=== PATIENT | male | born 1955 | race Caucasian/White ===

== ENCOUNTER 2019-02-05 00:11 | Inpatient (IN) ==
[2019-02-05] MEDS ORDERED: SODIUM CHLORIDE 0.9% 1000ML 1,000 ML IV ONE ×2 (00:34→01:36)
[2019-02-05] MEDS ORDERED: fentaNYL citrate 100 MCG/2 ML VIAL IV STA (00:34)
[2019-02-05 01:26] LABS: Albumin Level 2.4 gm/dl (3.4-5.0); BUN Creatinine Ratio 39.3 (10-20); Calcium 8.6 mg/dl (8.5-10.1); Creatinine Clr Calc Pharmacy 32.4 ml/min; Est GFR (African American) 35.7; Est GFR (Non-African American) 30.8; Magnesium 3.1 mg/dl (1.8-2.4); Potassium 3.9 mmol/L (3.5-5.1)
[2019-02-05 01:34] LABS: Albumin Globulin Ratio 0.5 (0.9-2); Globulin 4.8 gm/dl (2.5-4.0); Total Protein 7.2 gm/dl (6.4-8.2); Troponin I 0.442 ng/ml (0-0.045)
[2019-02-05 01:35] LABS: Hematocrit (blood only) 43.1 % (42-52); Hemoglobin 15.2 g/dL (14.0-18.0); Mean Corpuscular Hgb Conc 35.3 g/dL (32-36); Mean Corpuscular Volume 90.7 fL (80-100); Mean Platelet Volume 10.3 fL (7.4-10.4); Platelet Count 143 K/uL (130-400); RDW Coefficient of Variation 14.1 % (11.5-14.5); Red Blood Count 4.75 M/uL (4.7-6.1); White Blood Count 20.77 K/uL (4.8-10.8)
[2019-02-05 01:36] LABS: Basophils # (auto) 0.06 K/uL (0-0.2); Basophils % (auto) 0.3 %; Eosinophils # (auto) 0.01 K/uL (0-0.5); Immature Granulocytes # (auto) 0.45 K/uL (0.00-0.02); Immature Granulocytes % (auto) 2.2 %; Lymphocytes # (auto) 0.32 K/uL (1.2-3.4); Lymphocytes % (auto) 1.5 %; Monocytes # (auto) 0.64 K/uL (0.11-0.59); Monocytes % (auto) 3.1 %; Neutrophils # (auto) 19.29 K/uL (1.4-6.5); Neutrophils % (auto) 92.9 %; Platelet Estimate Normal (Normal)
[2019-02-05] MEDS ORDERED: MoRPHine SULFATE 4 MG/ML 1 ML CARP\\VIAL IV STA (02:16)
[2019-02-05 02:19] LABS: Appearance Urine Cloudy (Clear); Bacteria Urine Automated 4+ (Negative); Blood Urine 3+ (Negative); Color Urine Dark Yellow; Glucose Urine UA Negative (Negative); Ketones Urine Trace (Negative); Leukocyte Esterase Urine 3+ (Negative); Nitrite Urine Positive (Negative); Protein Urine 1+ (Negative); RBC Urine Automated >30 /hpf (0-4); Specific Gravity Urine 1.017 (1.000-1.030); Urobilinogen Urine Positive (Negative); WBC Urine Automated >30 /hpf (0-5); pH Urine 6.5 (4.5-7.5)
[2019-02-05 02:29] LABS: Bilirubin Urine Negative (Negative); Ictotest Urine Negative (Negative)
[2019-02-05] MEDS ORDERED: cefTRIAXone SODIUM 1,000 MG/50 ML BAG IV STA (02:37)
[2019-02-05] MEDS ORDERED: VANCOMYCIN CONSULT ACTIVE PRN (05:21)
[2019-02-05] MEDS ORDERED: NITROGLYCERIN SL 0.4 MG/TAB TAB SL PRN (05:21)
[2019-02-05] MEDS ORDERED: ONDANSETRON INJ 2 MG/ML 2 ML VIAL IV PRN (05:21)
[2019-02-05] MEDS ORDERED: POLYETHYLENE (MIRALAX) 17 GM PACK PO PRN (05:21)
[2019-02-05] MEDS ORDERED: MoRPHine SULFATE 4 MG/ML 1 ML CARP\\VIAL IV PRN (05:21)
[2019-02-05] MEDS ORDERED: ACETAMINOPHEN 325 MG TAB PO PRN (05:21)
[2019-02-05] MEDS ORDERED: OXYCODONE/ACETAMINOPHEN 5mg/325mg TAB PO PRN (05:21)
[2019-02-05] MEDS ORDERED: VANCOMYCIN HCL 1,000 MG in SODIUM CHLORIDE 0.9% 250 ML IV SCH (05:21)
[2019-02-05] MEDS ORDERED: MoRPHine SULFATE 4 MG/ML 1 ML CARP\\VIAL ONE (05:24)
[2019-02-05] MEDS ORDERED: VANCOMYCIN HCL 1,500 MG in SODIUM CHLORIDE 0.9% 500 ML IV SCH (05:30)
[2019-02-05] MEDS: SODIUM CHLORIDE 0.9% 1000ML 1,000 ML IV SCH ×4 (05:45→21:24)
[2019-02-05] MEDS ORDERED: AZTREONAM CONSULT ACTIVE PRN (05:52)
[2019-02-05] MEDS ORDERED: AZTREONAM 2,000 MG in DEXTROSE 5% 100 ML IV SCH (06:00)
--- NOTE | 2019-02-05 06:29 | History and Physical Report ---
DATE OF ADMISSION: 02/05/2019 CHIEF COMPLAINT: Fall from the ladder and generalized pain. 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 He says he fell a couple of times from the ladder 2 days apart, was feeling a lot of generalized pain and his friend brought him to the hospital. Also complains on and off occasional cough with whitish phlegm and pain in the chest, belly and back and all over.Also he is having burning micturition for more than few days now. He also says he is constipated, but when he moves bowels, he thinks they might be in black color. Denies any blood in the stools, no blood in the urine. Denies fevers but feeling very cold.Denies any headaches, no blurred visions. Has some sore throat. Somewhat hard of hearing and somewhat slow to answer. He says his appetite is okay. No nausea, no vomiting. He says he has some swelling in the legs, no rash seen. He was tachycardic in the ER with some mild hypothermia with leukocytosis and ALEE and elevated lactic acid. Received IV fluids and dose of Rocephin was given. Imaging studies were done, which shows a couple of rib fractures. UA was positive. Troponin was 0.4. We were called for admission. ALLERGIES: TO PENICILLINS. THE PATIENT SAYS HE HAS HAD EPISODE OF SEIZURE AFTER THE PENICILLIN, PAST MEDICAL HISTORY: Not significant. PAST SURGICAL HISTORY: None as per patient. MEDICATIONS: Aleve as needed. SOCIAL HISTORY: No smoking, no alcohol, no drugs. REVIEW OF SYMPTOMS: As per HPI. Rest of review of symptoms is negative. PHYSICAL EXAMINATION: GENERAL: The patient is alert and awake, some significant pain. VITAL SIGNS: Temperature 36.3, pulse 111, respiratory rate 26, blood pressure 130/79, oxygen 98% on room air. HEENT: No pallor, no icterus. Pupils equal, round, reactive to light. NECK: No JVD, no neck masses, no carotid bruits. CARDIOVASCULAR: S1, S2 heard. Tachycardia. No murmurs. RESPIRATORY SYSTEM: Normal AP diameter. No accessory muscle use. No wheezing, no crackles. ABDOMEN: Soft, bowel sounds present, nontender. No distention. CENTRAL NERVOUS SYSTEM: Alert and awake and oriented. Somewhat slow to answer, moves his extremities. Obeys commands. EXTREMITIES: Bilateral lower extremity chronic skin changes seen. Mild edema seen. LABORATORY DATA: WBC 20.7, hemoglobin 15.2, hematocrit 43.1, platelets 143. Sodium 133, potassium 3.9, chloride 97, bicarbonate 24, BUN 87, creatinine 2.2, serum glucose 101, lactate 3.1, calcium 8.6, magnesium 3.1, total bilirubin 4, AST 62, ALT 50, alkaline phosphatase 209, total creatinine kinase 145. Troponin I 0.44. Urinalysis, positive for nitrite and leukocyte esterase. IMAGING STUDIES: Official reading pending. EKG: Sinus tachycardia with rate of 108, right bundle-branch block, no previous EKG available. ASSESSMENT AND PLAN: This is a 63-year-old male who presents with a fall from a ladder 2 times 2 days apart, presents with generalized body pains. 1. Sepsis. The patient meets criteria for sepsis with tachycardia, hypothermia, elevated white count and most likely source of urinary tract infection. HE IS ALLERGIC TO PENICILLINS. Received 2 liters of fluids in the ER. Lactic acid was 3.1. We will follow the repeat lactic acid. Follow the repeat labs. Follow the urine and blood cultures. We will empirically place him on IV Azactam and IV vancomycin. Close monitor on tele floor. 2. The patient is having cough with some whitish phlegm. We will follow the official report of CAT scan of the chest. p.o. doxycycline for now. Close monitor. 3. Acute kidney injury. Creatinine of 2.2, Don't know the baseline. BUN is also elevated. Getting fluids, currently iv ns 200 mL per hour. We will follow the labs. We will also follow the official report of CAT scan of the abdomen and pelvis. 4. Hyponatremia. Sodium 133. Getting fluids. Follow the labs. 5. Elevated bilirubin and alk phosphatase . Bilirubin of 4. We will follow the repeat labs and ct abd/pelvis. Mostly from sepsis. 6. Elevated troponin. Generalized pain. EKG, no acute ST-T changes seen. Most likely demand ischemia from sepsis. We will follow the serial cardiac enzymes and echocardiogram. 7. Rib fractures. We will continue the pain control. We will follow the official report of the imaging studies. 8. generalized pain. Mostly from sepsis. ck levels normal. 9. Deep venous thrombosis prophylaxis, SCDs. 10. Disposition: Closely monitor in the tele floor. Level 1 full code. PT and OT prior to discharge. Social Service to help with discharge planning. ZEENAT
[2019-02-05 07:27] LABS: Hematocrit (blood only) 39.6 % (42-52); Hemoglobin 13.7 g/dL (14.0-18.0); Mean Corpuscular Hemoglobin 31.9 pg (25-34); Mean Corpuscular Hgb Conc 34.6 g/dL (32-36); Mean Corpuscular Volume 92.1 fL (80-100); Platelet Count 101 K/uL (130-400); RDW Coefficient of Variation 14.3 % (11.5-14.5); RDW Standard Deviation 48.3 fL (36.4-46.3); White Blood Count 15.86 K/uL (4.8-10.8)
--- NOTE | 2019-02-05 07:27 | CT Scan Report ---
CT SCAN OF THE CHEST, ABDOMEN, AND PELVIS WITHOUT IV CONTRAST; CT SCAN OF THE THORACIC SPINE WITHOUT IV CONTRAST; CT SCAN OF THE LUMBAR SPINE WITHOUT IV CONTRAST CLINICAL HISTORY: Fall from ladder 2 days ago. COMPARISON STUDY: Chest x-ray dated 05/27/2016. TECHNIQUE: Unenhanced CT scan of the chest, abdomen, and pelvis was performed from the thoracic inlet to the proximal femora. Images are reviewed in the axial, sagittal, and coronal planes. IV contrast was not administered as per the referring clinician. Note that the examination was performed in signi ficantly suboptimal fashion without IV contrast. Additionally, unenhanced CT scan of the thoracic sp ine is performed from the lower cervical spine to the upper lumbar spine and unenhanced CT scan of jimmie mbar spine is performed from the lower thoracic spine to the sacrum. The thoracic and lumbar spinal C T scans are reviewed in the axial, sagittal, and coronal planes. A dose lowering technique was utiliz ed adhering to the principles of ALARA. The examination is degraded by streak artifact from the arms which could not be elevated above the chest or abdomen, as well as by motion artifact. CT DOSE: 2194.99 mGy.cm FINDINGS: CHEST: Thyroid: Imaged portions of the thyroid gland are normal in size and attenuation. Thoracic aorta: There is mild atherosclerotic calcification of the thoracic aorta, which is normal in caliber and demonstrates standard 3-vessel arch anatomy. Heart: The heart is top normal in size and without pericardial effusion. Lungs and pleural spaces: Evaluation of the lung parenchyma is modestly degraded by motion artifact. There is trace right hemothorax. Airspace opacities at the right lung base likely represent atelectas is. No pneumothorax is seen. The trachea and central airways are clear. An 8 mm nodule versus focal a telectasis at the right lung base is seen on image #223. There is a 4 mm pulmonary nodule at the righ t apex seen on image #64. A 6 mm right middle lobe pulmonary nodule is seen on image #210. Mediastinum: There is no mediastinal hematoma or lymphadenopathy. Mary: Not well assessed without IV contrast. Axillae: There is no axillary lymphadenopathy. Bony thorax: The skeletal structures are osteopenic. See below for dedicated assessment of the thorac ic spine. There are acute and minimally distracted fractures of the right posterior 9th and 10th ribs . Both ribs are fractured at 2 sites. There is an age indeterminant fracture of the right anterior 3r d rib. No lytic or blastic lesions are identified. THORACIC SPINE: There is a minimal and age indeterminant superior endplate compression deformity of T 3. Vertebral body height is otherwise maintained throughout the thoracic spine. Alignment is preserve d. Small anterior osteophytes are seen throughout. The transverse and spinous processes are intact. A Schmorl's node is seen in the superior endplate of T12. The disc spaces are preserved. There is no e vidence of large disc herniation or high-grade central canal stenosis by CT. The paraspinous soft tis sues are normal in appearance. ABDOMEN AND PELVIS: Liver: Evaluation of the liver is degraded by streak artifact. The unenhanced liver is normal in size . Question nodularity of the surface contour. There is no intrahepatic or ductal dilatation. Gallbladder: Unremarkable. Spleen: Evaluation of the spleen is degraded by streak artifact. The spleen is enlarged, measuring 14 .3 cm in length. The unenhanced spleen is normal in contour and attenuation. Pancreas: The unenhanced pancreas is grossly unremarkable. Adrenal glands: Unremarkable. Kidneys: The unenhanced kidneys are normal in size and without hydronephrosis. There is a 4 mm nonobs tructing calculus in the lower pole of the right kidney. No left renal calculi are identified. There is no evidence of contour deforming mass lesion. Abdominal vasculature: The abdominal aorta is normal in course and caliber noting moderate atheroscle rotic calcification. Stomach and bowel: There is a tiny hiatal hernia. The duodenum is normal in configuration. Fecal rete ntion is noted in the right colon. No bowel obstruction is seen. The appendix is normal as visualize d. Peritoneum/retroperitoneum: There is no intraperitoneal free air or abdominal ascites. The right psoa s muscle appears expanded and heterogeneous, best seen on image #265. Lymphadenopathy: None. Pelvic viscera: The prostate gland is mildly enlarged and heterogeneous. There is median lobe hypertr ophy. The bladder is markedly distended. The bladder wall is thickened and trabeculated indicating ch ronic outlet obstruction. There is a fat-containing left inguinal hernia. Skeletal structures: The skeletal structures are osteopenic. See below for dedicated assessment of th e lumbar spine. The bony pelvis and proximal femora appear intact. No lytic or blastic lesions are se en. LUMBAR SPINE: There is no evidence of fracture or malalignment involving the lumbar spine. Vertebral body height and alignment are maintained throughout the lumbar spine. Tiny anterior osteophytes are s een throughout. The transverse and spinous processes are intact. There is no evidence of spondylolysi s. There is advanced disc space narrowing at L5-S1. Only mild disc space narrowing is seen at the rem aining lumbar levels. There is no evidence of large disc herniation or high-grade stenosis by CT. Mil d facet arthropathy is noted in the lower lumbar region. The paraspinous soft tissues are within norm al limits. IMPRESSION: 1. Significantly suboptimal examination without IV contrast given the history of trauma. The examinat ion is also degraded by streak and motion artifact 2. There are acute fractures of the right posterior 9th and 10th ribs as detailed above. 3. There is trace right-sided hemothorax. No pneumothorax is identified. 4. Airspace opacities at the right lung base likely represent atelectasis. Clinical correlation will be required. 5. There is no evidence of solid organ injury in the abdomen or pelvis on this unenhanced examination . 6. The right psoas muscle appears heterogeneous and expanded. This is of indeterminate significance, and could represent intramuscular hematoma, a cystic lesion or collection, or possibly a nerve sheath tumor such as neurofibroma or schwannoma. A contrast-enhanced examination may provide further inform ation. 7. Right-sided nephrolithiasis. 8. Question nodularity of the hepatic surface contour. This could represent early change of cirrhosis . 9. Splenomegaly. 10. There is a minimal and age indeterminant superior endplate compression deformity of T3. Correlate for point tenderness. 11. No additional findings are concerning for fracture or malalignment involving the thoracic spine. 12. There is no evidence of fracture or malalignment involving the lumbar spine. 13. Scattered pulmonary nodules measure up to 8 mm. These can be followed as per the Fleischner crite ema. See below. 14. Bladder distention. 15. Additional findings as above. Electronically signed by: Ben You M.D. 02/05/2019 7:24 AM
[2019-02-05 07:45] LABS: Basophils # (auto) 0.05 K/uL (0-0.2); Basophils % (auto) 0.3 %; Immature Granulocytes # (auto) 0.29 K/uL (0.00-0.02); Immature Granulocytes % (auto) 1.8 %; Lymphocytes % (auto) 1.9 %; Monocytes # (auto) 0.57 K/uL (0.11-0.59); Monocytes % (auto) 3.6 %; Neutrophils # (auto) 14.65 K/uL (1.4-6.5); Neutrophils % (auto) 92.4 %
[2019-02-05 07:57] LABS: Albumin Level 1.8 gm/dl (3.4-5.0); Calcium 7.9 mg/dl (8.5-10.1); Creatinine Clr Calc Pharmacy 41.5 ml/min; Est GFR (African American) 50.4; Est GFR (Non-African American) 43.5; Potassium 3.7 mmol/L (3.5-5.1)
--- NOTE | 2019-02-05 07:59 | CT Scan Report ---
CT SCAN OF THE CERVICAL SPINE CLINICAL HISTORY: Fall from ladder 2 days previously. COMPARISON STUDY: No priors. TECHNIQUE: CT scan of the cervical spine is performed from the skull base to the upper thoracic spine . Images are reviewed in the axial, sagittal, and coronal planes. IV contrast was not administered fo r this examination. A dose lowering technique was utilized adhering to the principles of ALARA. FINDINGS: Skeletal structures: The skeletal structures are osteopenic. There is no evidence of fracture or subl uxation involving the cervical spine. Vertebral body height is maintained. There is minimal retrolist hesis at C4-C5. Alignment is otherwise preserved. There is straightening of the cervical lordosis wit h reversal centered at C4. Anterior osteophytes are seen throughout. The odontoid process and lateral masses are intact. The atlantoaxial articulation is preserved noting productive degenerative change. The spinous processes appear intact. A minimal superior endplate compression deformity is noted in t he body of T3. There is moderate multilevel cervical spondylosis. Uncovertebral and facet arthropathy contribute sterile foraminal stenosis at several levels. Intervertebral discs: There is moderate to advanced disc space narrowing seen at C4-C5, C5-C6, and C6 -C7 with associated endplate sclerosis. Moderate disc space narrowing seen at C3-C4. Central canal: Large posterior disc osteophyte complexes at C4-C5, C5-C6, and C6-C7 may contribute to acquired compromise of the central canal. Soft tissues: The prevertebral and paraspinous soft tissues are within normal limits. Calvarium: The visualized calvarium at the skull base appears intact. Brain parenchyma: Partially visualized brain parenchyma the skull base is within normal limits. Mastoids: The mastoid air cells are well pneumatized. Lung apices: There is a 4 mm right apical pulmonary nodule seen on image #547. Apical lung parenchyma is otherwise clear as visualized. IMPRESSION: 1. There is no evidence of fracture or subluxation involving the cervical spine. 2. Osteopenia and spondylotic change as above. Electronically signed by: Ben You M.D. 02/05/2019 7:58 AM
[2019-02-05 08:15] LABS: Albumin Globulin Ratio 0.5 (0.9-2); Bilirubin,Total 3.1 mg/dl (0.2-1); Total Protein 5.8 gm/dl (6.4-8.2)
--- NOTE | 2019-02-05 08:53 | Emergency Department Note ---
History of Present Illness General Chief complaint: Pain (Generalized) Stated complaint: EXTREME PAIN Source: patient Mode of arrival: ambulatory Limitations: patient cooperation History of Present Illness Maximum Pain Intensity: 7 This patient is a 63-year-old male who presents to the emergency department complaining of generalized pain. Patient is a poor historian and is moaning in pain, not answering many questions. Patient states he fell off of a 14 foot ladder 2 days ago. His neighbor states that he walked over to his house today and said that he wanted to go to the hospital. The patient lives in a van on the neighbor's property. He admits he has not been taking very good care of himself over the past few days and has not been very active due to his pain. He denies any medical problems. He states that the pain is all over his body he rates the pain a 10/10. He denies any fevers or recent illness. He states that he did see his primary care provider a few days ago and was prescribed Percocet for this pain. Home Medications Home Medications Medication Instructions Recorded Confirmed Type ascorbic acid (vitamin C) [Vitamin 1 g PO DAILY 02/05/19 02/05/19 History C] multivitamin 1 tab PO DAILY 02/05/19 02/05/19 History naproxen sodium [Aleve] 220 mg PO DIRECTED PRN 02/05/19 02/05/19 History oxycodone-acetaminophen [Percocet] 1 - 2 tab PO DIRECTED PRN 02/05/19 02/05/19 History vitamin B complex 1 tab PO DAILY 02/05/19 02/05/19 History Allergies Allergy/AdvReac Type Severity Reaction Status Date / Time Penicillins Allergy Unknown UNKNOWN Verified 02/05/19 01:02 Past Med/Surg History Medical History No known health problems Social History Preferred Language: Vietnamese Communication Ability: Impaired Reserves Clerk Required: No Beliefs That Will Affect Care: None Current Living Situation: Homeless Current Living Situation Comment: Patient lives in his van Other Information That Helps Us Care for You: No Feels Safe at Home: Yes Safety Concerns: Feels Safe At This Time Smoking Status: Never smoker Hx Alcohol Use: No Hx Substance Use: No Review of Systems A total of 10 systems reviewed and were otherwise negative Physical Exam Vital Signs Vital Signs - 24 hr 02/05/19 00:17 02/05/19 00:32 02/05/19 00:36 Temperature 36.3 C L Temperature Source Oral Sepsis Recent Fever Within 48 Hours No Sepsis Action Taken by Nursing No Action Required Pulse Rate 120 H 110 H Pulse Rate [Apical] 112 H Pulse Rate from SpO2 Sensor 109 H Pulse Rhythm [Apical] Regular Respiratory Rate 16 30 H 20 Respiratory Effort / Characteristics Non-Labored Spontaneous Non-Labored Spontaneous Respiratory Depth Normal Normal Respiratory Pattern Regular Blood Pressure 117/68 146/87 H Blood Pressure [Right Arm] 146/87 H Blood Pressure Mean 84 106 Blood Pressure Mean [Right Arm] 106 Pulse Oximetry 97 99 95 Oxygen Delivery Method Room Air Room Air 02/05/19 01:00 02/05/19 01:30 02/05/19 02:17 Temperature Temperature Source Sepsis Recent Fever Within 48 Hours Sepsis Action Taken by Nursing Pulse Rate 108 H 115 H 111 H Pulse Rate [Apical] Pulse Rate from SpO2 Sensor 107 H 115 H 112 H Pulse Rhythm [Apical] Respiratory Rate 24 25 H 29 H Respiratory Effort / Characteristics Respiratory Depth Respiratory Pattern Blood Pressure 140/91 153/107 H 145/92 H Blood Pressure [Right Arm] Blood Pressure Mean 107 122 109 Blood Pressure Mean [Right Arm] Pulse Oximetry 98 99 96 Oxygen Delivery Method 02/05/19 02:30 02/05/19 03:00 02/05/19 03:30 Temperature Temperature Source Sepsis Recent Fever Within 48 Hours Sepsis Action Taken by Nursing Pulse Rate 111 H 115 H 114 H Pulse Rate [Apical] Pulse Rate from SpO2 Sensor 112 H 114 H Pulse Rhythm [Apical] Respiratory Rate 26 H 29 H 31 H Respiratory Effort / Characteristics Respiratory Depth Respiratory Pattern Blood Pressure 138/79 141/78 H 142/78 H Blood Pressure [Right Arm] Blood Pressure Mean 98 99 99 Blood Pressure Mean [Right Arm] Pulse Oximetry 98 98 Oxygen Delivery Method 02/05/19 03:31 02/05/19 04:00 Temperature Temperature Source Sepsis Recent Fever Within 48 Hours Sepsis Action Taken by Nursing Pulse Rate 112 H 114 H Pulse Rate [Apical] Pulse Rate from SpO2 Sensor 110 H Pulse Rhythm [Apical] Respiratory Rate 24 25 H Respiratory Effort / Characteristics Respiratory Depth Respiratory Pattern Blood Pressure Blood Pressure [Right Arm] Blood Pressure Mean Blood Pressure Mean [Right Arm] Pulse Oximetry 97 Oxygen Delivery Method VITALS: Vitals are noted on the nurse's note and reviewed by myself. GENERAL: This is a 63-year-old male, thin and chronically unwell appearing, moaning in pain. SKIN: Skin changes to bilateral lower extremities consistent with peripheral vascular disease. HEAD: Normocephalic atraumatic. EARS: External auditory canals clear, tympanic membranes pearly mcdonald without erythema or effusion bilaterally. EYES: Pupils equal round and reactive to light and accommodation. Extraocular movements intact. MOUTH: Mucous membranes moist. Tonsils are not enlarged. Pharynx without erythema or exudate. NECK: Supple without nuchal rigidity. No lymphadenopathy. HEART: Regular rate and rhythm without murmurs gallops or rubs. LUNGS: Clear to auscultation bilaterally without wheezes, rales or rhonchi. CHEST: Patient has tenderness to palpation of the right chest wall. ABDOMEN: Positive bowel sounds x 4. Soft, nontender to palpation. MUSCULOSKELETAL: No deformities. Patient has tenderness throughout all extremities. NEURO: Patient was alert and oriented to person place and time. Course Consultations Consultation #1: Dr. Lieva [facility] hospitalist Administered Medications Clonidine HCl (Malwrnbs-Thw-0 0.1mg/24hr) 1 patch TD CQWK REPLACED BY [facility] Stop: 03/08/19 20:59 Last Admin: 02/06/19 22:11 Dose: 1 patch Documented by: [id number] Hydralazine HCl (Hydralazine Hcl) 10 mg IV Q8H PRN PRN Reason: SBP > 160 Stop: 03/08/19 20:45 Last Admin: 02/07/19 03:53 Dose: 10 mg Documented by: [id number] Aztreonam 1,000 mg/ Dextrose 110 mls @ 110 mls/hr IV Q8H REPLACED BY [facility]; Protocol Stop: 02/15/19 13:59 Last Infusion: 02/07/19 06:19 Dose: 0 mls/hr Documented by: [id number] Admin: 02/07/19 05:20 Dose: 110 mls/hr Documented by: [id number] Infusion: 02/06/19 23:21 Dose: 0 mls/hr Documented by: [id number] Admin: 02/06/19 22:12 Dose: 110 mls/hr Documented by: [id number] Infusion: 02/06/19 15:45 Dose: 0 mls/hr Documented by: [id number] Admin: 02/06/19 14:29 Dose: 110 mls/hr Documented by: [id number] Infusion: 02/06/19 07:25 Dose: 0 mls/hr Documented by: [id number] Admin: 02/06/19 05:55 Dose: 110 mls/hr Documented by: [id number] Infusion: 02/05/19 16:52 Dose: 0 mls/hr Documented by: [id number] Admin: 02/05/19 15:43 Dose: 110 mls/hr Documented by: [id number] Infusion: 02/05/19 15:43 Dose: 110 mls/hr Documented by: [id number] Admin: 02/05/19 15:42 Dose: 110 mls/hr Documented by: [id number] Acetaminophen (Ofirmev) 1,000 mg in 100 mls @ 400 mls/hr IV Q8H PRN PRN Reason: Pain or Fever Stop: 03/07/19 09:58 Last Infusion: 02/07/19 00:52 Dose: 0 mls/hr Documented by: [id number] Admin: 02/07/19 00:31 Dose: 400 mls/hr Documented by: [id number] Infusion: 02/05/19 21:35 Dose: 0 mls/hr Documented by: [id number] Admin: 02/05/19 21:16 Dose: 400 mls/hr Documented by: [id number] Infusion: 02/05/19 12:24 Dose: 0 mls/hr Documented by: [id number] Admin: 02/05/19 11:10 Dose: 400 mls/hr Documented by: [id number] Vancomycin HCl 1,000 mg/ (Sodium Chloride) 270 mls @ 125 mls/hr IV Q16H DEBRA; Protocol Stop: 02/16/19 00:00 Last Infusion: 02/06/19 20:10 Dose: 0 mls/hr Documented by: [id number] Admin: 02/06/19 16:31 Dose: 125 mls/hr Documented by: [id number] Dextrose/Sodium Chloride (D5w And Nss) 1,000 mls @ 125 mls/hr IV .Q8H DEBRA Stop: 03/08/19 20:44 Last Admin: 02/07/19 03:55 Dose: 125 mls/hr Documented by: [id number] Infusion: 02/07/19 03:55 Dose: 125 mls/hr Documented by: [id number] Admin: 02/06/19 21:16 Dose: 125 mls/hr Documented by: [id number] Lidocaine (Lidoderm 5%) 1 patch TD QAM EDBRA Stop: 03/07/19 09:44 Last Admin: 02/06/19 07:39 Dose: 1 patch Documented by: [id number] Admin: 02/05/19 10:30 Dose: 1 patch Documented by: [id number] Miscellaneous (Remove Lidoderm Patch) 1 ea N/A DAILY@2100 DEBRA Stop: 03/07/19 20:59 Last Admin: 02/06/19 22:12 Dose: Not Given Documented by: [id number] Admin: 02/05/19 21:25 Dose: 1 ea Documented by: [id number] Miscellaneous (Check Clonidine Patch) 1 ea N/A QS DEBRA Stop: 03/09/19 00:00 Last Admin: 02/07/19 00:22 Dose: 1 ea Documented by: [id number] Discontinued Medications Doxycycline Hyclate (Vibramycin) 100 mg PO BID REPLACED BY [facility] Stop: 02/12/19 08:59 Last Admin: 02/05/19 08:14 Dose: 100 mg Documented by: [id number] Fentanyl Citrate (Fentanyl Citrate) 50 mcg IV NOW STA Stop: 02/05/19 00:35 Last Admin: 02/05/19 00:49 Dose: 50 mcg Documented by: [id number] Hydralazine HCl (Hydralazine Hcl) 10 mg IV NOW STA Stop: 02/06/19 20:47 Last Admin: 02/06/19 21:11 Dose: 10 mg Documented by: [id number] Sodium Chloride (Nss 1000ml) 1,000 mls @ 999 mls/hr IV .Q1H1M ONE Stop: 02/05/19 01:34 Last Infusion: 02/05/19 02:08 Dose: 0 mls/hr Documented by: [id number] Admin: 02/05/19 00:50 Dose: 999 mls/hr Documented by: [id number] Sodium Chloride (Nss 1000ml) 1,000 mls @ 999 mls/hr IV .Q1H1M ONE Stop: 02/05/19 02:36 Last Infusion: 02/05/19 03:39 Dose: 0 mls/hr Documented by: [id number] Admin: 02/05/19 02:21 Dose: 999 mls/hr Documented by: [id number] Ceftriaxone Sodium (Rocephin) 1,000 mg in 50 mls @ 100 mls/hr IV NOW STA Stop: 02/05/19 03:06 Last Infusion: 02/05/19 04:00 Dose: 0 mls/hr Documented by: [id number] Admin: 02/05/19 03:30 Dose: 100 mls/hr Documented by: [id number] Sodium Chloride (Nss 1000ml) 1,000 mls @ 200 mls/hr IV .Q5H REPLACED BY [facility] Stop: 03/07/19 05:20 Last Infusion: 02/06/19 10:30 Dose: 0 mls/hr Documented by: [id number] Admin: 02/06/19 09:29 Dose: 200 mls/hr Documented by: [id number] Infusion: 02/06/19 09:29 Dose: 200 mls/hr Documented by: [id number] Admin: 02/06/19 04:30 Dose: 200 mls/hr Documented by: [id number] Infusion: 02/06/19 02:24 Dose: 200 mls/hr Documented by: [id number] Admin: 02/05/19 21:24 Dose: 200 mls/hr Documented by: [id number] Infusion: 02/05/19 20:49 Dose: 200 mls/hr Documented by: [id number] Admin: 02/05/19 15:49 Dose: 200 mls/hr Documented by: [id number] Infusion: 02/05/19 15:42 Dose: 0 mls/hr Documented by: [id number] Admin: 02/05/19 10:33 Dose: 200 mls/hr Documented by: [id number] Infusion: 02/05/19 10:33 Dose: 200 mls/hr Documented by: [id number] Admin: 02/05/19 05:45 Dose: 200 mls/hr Documented by: [id number] Aztreonam 2,000 mg/ Dextrose 110 mls @ 100 mls/hr IV TODAY@0600 REPLACED BY [facility]; Protocol Stop: 02/05/19 07:05 Last Infusion: 02/05/19 07:04 Dose: 0 mls/hr Documented by: [id number] Admin: 02/05/19 05:52 Dose: 100 mls/hr Documented by: [id number] Vancomycin HCl 1,500 mg/ (Sodium Chloride) 530 mls @ 200 mls/hr IV TODAY@0530 REPLACED BY [facility] Stop: 02/05/19 08:08 Last Infusion: 02/05/19 08:29 Dose: 0 mls/hr Documented by: [id number] Admin: 02/05/19 05:46 Dose: 200 mls/hr Documented by: [id number] Vancomycin HCl 1,000 mg/ (Sodium Chloride) 270 mls @ 125 mls/hr IV Q18H REPLACED BY [facility]; Protocol Stop: 02/16/19 00:00 Last Infusion: 02/06/19 03:06 Dose: 0 mls/hr Documented by: [id number] Admin: 02/06/19 00:52 Dose: 125 mls/hr Documented by: [id number] Lactated Ringer's (Lr) 1,000 mls @ 125 mls/hr IV .Q8H REPLACED BY [facility] Stop: 03/08/19 10:29 Last Infusion: 02/06/19 22:55 Dose: 0 mls/hr Documented by: [id number] Infusion: 02/06/19 22:47 Dose: 0 mls/hr Documented by: [id number] Admin: 02/06/19 18:00 Dose: 125 mls/hr Documented by: [id number] Infusion: 02/06/19 18:00 Dose: 125 mls/hr Documented by: [id number] Admin: 02/06/19 10:38 Dose: 125 mls/hr Documented by: [id number] Lorazepam (Ativan) 0.5 mg in 1 mls @ 1 mls/min IV NOW STA Stop: 02/06/19 16:31 Last Admin: 02/06/19 17:12 Dose: 1 mls/min Documented by: [id number] Folic Acid 1 mg/ Syringe 10 mls @ 5 mls/min IV NOW STA Stop: 02/06/19 20:43 Last Admin: 02/06/19 21:15 Dose: 5 mls/min Documented by: [id number] Thiamine HCl 100 mg/ Syringe 10 mls @ 2 mls/min IV NOW STA Stop: 02/06/19 20:46 Last Admin: 02/06/19 21:15 Dose: 2 mls/min Documented by: [id number] Lorazepam (Ativan) 1 mg in 2 mls @ 2 mls/min IV NOW STA Stop: 02/06/19 20:46 Last Admin: 02/06/19 21:11 Dose: 2 mls/min Documented by: [id number] Morphine Sulfate (Morphine Sulfate) 4 mg IV NOW STA Stop: 02/05/19 02:17 Last Admin: 02/05/19 02:21 Dose: 4 mg Documented by: [id number] Morphine Sulfate (Morphine Sulfate) 3 mg IV Q3H PRN PRN Reason: Pain Stop: 02/19/19 05:20 Last Admin: 02/05/19 05:46 Dose: 3 mg Documented by: [id number] Morphine Sulfate (Morphine Sulfate) Confirm Administered Dose 4 mg .ROUTE .STK- MED ONE Stop: 02/05/19 05:25 Last Admin: 02/05/19 05:49 Dose: Not Given Documented by: [id number] Multivitamins (Multivitamin Tab) 1 tab PO DAILY DEBRA Stop: 03/07/19 08:59 Last Admin: 02/05/19 08:15 Dose: 1 tab Documented by: [id number] Vitamin B Complex (Vitamin B Complex) 1 tab PO DAILY DEBRA Stop: 03/07/19 08:59 Last Admin: 02/05/19 08:14 Dose: 1 tab Documented by: [id number] Medical Decision Making Differential Diagnosis Differential diagnosis includes fracture, intracranial bleed, intrathoracic injury, intra-abdominal injury, sepsis, dehydration, among others. Home Medications Current Medication List: was personally reviewed by me Laboratory Data Attestation: I reviewed the patient's lab results. Result diagrams: 02/06/19 05:50 02/07/19 05:33 Lab Results 02/05/19 02/05/19 02/05/19 Range/Units 00:52 00:52 00:52 WBC 20.77 H (4.8-10.8) K/uL RBC 4.75 (4.7-6.1) M/uL Hgb 15.2 (14.0-18.0) g/dL Hct 43.1 (42-52) % MCV 90.7 (80-100) fL MCH 32.0 (25-34) pg MCHC 35.3 (32-36) g/dL RDW Std Deviation 47.0 H (36.4-46.3) fL RDW Coeff of Amari 14.1 (11.5-14.5) % Plt Count 143 (130-400) K/uL MPV 10.3 (7.4-10.4) fL Immature Gran % (Auto) 2.2 % Neut % (Auto) 92.9 % Lymph % (Auto) 1.5 % Garza % (Auto) 3.1 % Eos % (Auto) 0.0 % Baso % (Auto) 0.3 % Immature Gran # (Auto) 0.45 H (0.00-0.02) K/uL Neut # (Auto) 19.29 H (1.4-6.5) K/uL Lymph # (Auto) 0.32 L (1.2-3.4) K/uL Garza # (Auto) 0.64 H (0.11-0.59) K/uL Eos # (Auto) 0.01 (0-0.5) K/uL Baso # (Auto) 0.06 (0-0.2) K/uL Platelet Estimate Normal (Normal) Sodium 133 L (136-145) mmol/L Potassium 3.9 (3.5-5.1) mmol/L Chloride 97 L (98-107) mmol/L Carbon Dioxide 24 (21-32) mmol/L Anion Gap 12.0 H (3-11) BUN 87 H (7-18) mg/dl Creatinine 2.21 H (0.6-1.4) mg/dl Est Cr Clr Drug Dosing 32.4 ml/min Est GFR ( Amer) 35.7 Est GFR (Non-Af Amer) 30.8 BUN/Creatinine Ratio 39.3 H (10-20) Glucose 101 H (70-99) mg/dl Lactate 3.1 H* (0.4-2.0) mmol/L Calcium 8.6 (8.5-10.1) mg/dl Magnesium 3.1 H (1.8-2.4) mg/dl Total Bilirubin 4.0 H (0.2-1) mg/dl AST 62 H (15-37) U/L ALT 50 (12-78) U/L Alkaline Phosphatase 209 H (45-117) U/L Total Creatine Kinase 145 (39-308) U/L Troponin I 0.442 H* (0-0.045) ng/ml Total Protein 7.2 (6.4-8.2) gm/dl Albumin 2.4 L (3.4-5.0) gm/dl Globulin 4.8 H (2.5-4.0) gm/dl Albumin/Globulin Ratio 0.5 L (0.9-2) Urine Color Urine Appearance (Clear) Urine pH (4.5-7.5) Ur Specific [place] (1.000-1.030) Urine Protein (Negative) Urine Glucose (UA) (Negative) Urine Ketones (Negative) Urine Blood (Negative) Urine Nitrite (Negative) Urine Bilirubin (Negative) Urine Urobilinogen (Negative) Ur Leukocyte Esterase (Negative) Urine WBC (Auto) (0-5) /hpf Urine RBC (Auto) (0-4) /hpf U Hyaline Cast (Auto) (0-5) /lpf U Epithel Cells (Auto) (0-5) /lpf Urine Bacteria (Auto) (Negative) Urine Yeast Bld Cult Staph aureus PCR (Negative) Blood Culture MRSA PCR (Negative) 02/05/19 02/05/19 Range/Units 02:07 02:50 WBC (4.8-10.8) K/uL RBC (4.7-6.1) M/uL Hgb (14.0-18.0) g/dL Hct (42-52) % MCV (80-100) fL MCH (25-34) pg MCHC (32-36) g/dL RDW Std Deviation (36.4-46.3) fL RDW Coeff of Amari (11.5-14.5) % Plt Count (130-400) K/uL MPV (7.4-10.4) fL Immature Gran % (Auto) % Neut % (Auto) % Lymph % (Auto) % Garza % (Auto) % Eos % (Auto) % Baso % (Auto) % Immature Gran # (Auto) (0.00-0.02) K/uL Neut # (Auto) (1.4-6.5) K/uL Lymph # (Auto) (1.2-3.4) K/uL Garza # (Auto) (0.11-0.59) K/uL Eos # (Auto) (0-0.5) K/uL Baso # (Auto) (0-0.2) K/uL Platelet Estimate (Normal) Sodium (136-145) mmol/L Potassium (3.5-5.1) mmol/L Chloride (98-107) mmol/L Carbon Dioxide (21-32) mmol/L Anion Gap (3-11) BUN (7-18) mg/dl Creatinine (0.6-1.4) mg/dl Est Cr Clr Drug Dosing ml/min Est GFR ( Amer) Est GFR (Non-Af Amer) BUN/Creatinine Ratio (10-20) Glucose (70-99) mg/dl Lactate (0.4-2.0) mmol/L Calcium (8.5-10.1) mg/dl Magnesium (1.8-2.4) mg/dl Total Bilirubin (0.2-1) mg/dl AST (15-37) U/L ALT (12-78) U/L Alkaline Phosphatase (45-117) U/L Total Creatine Kinase (39-308) U/L Troponin I (0-0.045) ng/ml Total Protein (6.4-8.2) gm/dl Albumin (3.4-5.0) gm/dl Globulin (2.5-4.0) gm/dl Albumin/Globulin Ratio (0.9-2) Urine Color Dark Yellow Urine Appearance Cloudy A (Clear) Urine pH 6.5 (4.5-7.5) Ur Specific [place] 1.017 (1.000-1.030) Urine Protein 1+ H (Negative) Urine Glucose (UA) Negative (Negative) Urine Ketones Trace H (Negative) Urine Blood 3+ H (Negative) Urine Nitrite Positive A (Negative) Urine Bilirubin Negative (Negative) Urine Urobilinogen Positive H (Negative) Ur Leukocyte Esterase 3+ H (Negative) Urine WBC (Auto) >30 H (0-5) /hpf Urine RBC (Auto) >30 H (0-4) /hpf U Hyaline Cast (Auto) 1-5 (0-5) /lpf U Epithel Cells (Auto) 10-20 H (0-5) /lpf Urine Bacteria (Auto) 4+ H (Negative) Urine Yeast Not Reportable Bld Cult Staph aureus PCR Positive A (Negative) Blood Culture MRSA PCR Negative (Negative) Imaging Data Attestation: I personally reviewed and interpreted this imaging study as follows: Radiologist's Impression: CT HEAD: No acute fracture or intracranial hemorrhage. CT C SPINE: No acute fracture. Moderate to severe cervical spondylosis. Kyphosis. CT CHEST Without Contrast: Small right pleural effusion. Patchy airspace opacity in the bilateral lower lobes probably represents dependent atelectasis. No pneumothorax. Nondisplaced fractures of the right ninth and 10th ribs. No mediastinal hematoma. CT T SPINE: No acute fracture or subluxation of the thoracic spine. Old appearing mild compression deformity of T3 with less than 25% loss of height. CT ABDOMEN & PELVIS Without Contrast: No free air or free fluid. No bowel wall thickening. No hematoma. No acute fracture. The bladder is distended with mild wall thickening. Findings could be related to cystitis or neurogenic bladder. Recommend correlation with urinary output. Small fat-containing left inguinal hernia. CT L SPINE: No acute fracture or subluxation of the lumbar spine. Severe degenerative disc disease at L5-S1. Moderate facet arthropathy from bilateral L3-S1. Radiologist: Dea Nuñez MD ECG Data Attestation: I personally reviewed and interpreted this ECG as follows: Indication: weakness Rate (beats per minute): 119 Rhythm: sinus tachycardia Findings: + T-wave inversion (Anterolateral) Change: no significant change Blood Pressure Blood Pressure Findings: Elevated blood pressure Blood Pressure Disposition: further management by hospitalist Head Trauma GCS Score: 15 MDM Narrative The patient is a 63-year-old male who presents today complaining of generalized pain. On exam, patient is complaining of pain all over his body. Patient apparently fell 14 feet off of a ladder [address] scans were performed due to the history of trauma. These showed right-sided rib fractures but no other significant trauma. Patient was found to have an elevated white blood cell count of 20,000. He has an elevated creatinine at 2.2, BUN of 87. He is hyponatremic. His lactate is elevated at 3.1, possibly due to dehydration or sepsis. His troponin is elevated at 0.442. Urine appears to be grossly infected, with 4+ bacteria, nitrites, leukocyte esterase and white blood cells. Blood cultures were drawn. Patient was hydrated with IV fluids in the emergency department and was given Rocephin initially. Patient was admitted to the [facility] service for further evaluation and care. Impression & Plan Sepsis secondary to UTI, Elevated troponin, Closed rib fracture, Acute kidney injury Critical Care Time Critical Care Time: Yes Total Critical Care Time: 45 I have personally spent greater than 45 minutes of critical care time in the direct management of this patient. This includes bedside care, interpretation of diagnostic studies, and testing, discussion with consultants, patient, and family members, and other required patient management activities. This 45 minutes is in excess of all separately billable procedures. Discharge Plan Visit Data *Final* Discharge Date/Time: 02/05/19 04:55 Chief Complaint: Pain (Generalized) Stated Complaint: EXTREME PAIN ED Provider: Yahir Hernandez ED Midlevel Provider: Katherine Coats Discharge Problem: Sepsis secondary to UTI, Elevated troponin, Closed rib fracture, Acute kidney injury Patient Disposition: Admitted As Inpatient Discharge Instructions Interventions: ED Discharge Assessment Last Done: 02/05/19 04:55 Discharge Problem: Closed rib fracture Qualifiers: Encounter type: initial encounter Rib fracture type: multiple ribs Laterality: right Qualified Code(s): S22.41XA - Multiple fractures of ribs, right side, initial encounter for closed fracture
[2019-02-05] MEDS ORDERED: MULTIVITAMIN TAB PO SCH (09:00)
[2019-02-05] MEDS ORDERED: DOXYCYCLINE HYCLATE 100 MG CAP PO SCH (09:00)
[2019-02-05] MEDS ORDERED: VITAMIN B COMPLEX TAB PO SCH (09:00)
[2019-02-05 09:46] LABS: HCO3 ABG 22 mmol/L (19-24); Oxygen Saturation ABG 95.9 % (90-95); PCO2 ABG 32 mmHg (35-46); PO2 ABG 76 mm/Hg (80-95); pH ABG 7.46 (7.35-7.45)
[2019-02-05 09:52] LABS: Allen Test Pos (Pos)
--- NOTE | 2019-02-05 10:04 | CT Scan Report ---
CT SCAN OF THE BRAIN WITHOUT IV CONTRAST CLINICAL HISTORY: Fall from ladder 2 days previously. COMPARISON STUDY: No priors. TECHNIQUE: Unenhanced axial CT scan of the brain is performed from the vertex to the skull base. A d ose lowering technique was utilized adhering to the principles of ALARA. FINDINGS: Brain parenchyma: The brain parenchyma is normal in appearance. There is no hemorrhage, mass effect, or evidence of acute territorial ischemia by CT criteria. George-white matter differentiation is preser samson. No extra-axial fluid collection is seen. Ventricles, sulci, cisterns: Normal in configuration. Intracranial vasculature: The visualized intracranial vasculature at the skull base is normal in appe arance. Calvarium: There is no depressed calvarial fracture. Sinuses and mastoids: The visualized paranasal sinuses are clear. The mastoid air cells are well pneu matized. Orbits: The bony orbits are grossly intact. IMPRESSION: There is no hemorrhage, mass effect, or evidence of acute territorial ischemia by CT jorge dietrich. Electronically signed by: Ben You M.D. 02/05/2019 10:03 AM
--- NOTE | 2019-02-05 10:26 | XRay Report ---
LEFT SHOULDER 3 VIEWS CLINICAL HISTORY: Fall with shoulder pain. FINDINGS: 3 views of the left shoulder are obtained. No prior studies are available for comparison at the time of dictation. The skeletal structures are osteopenic. There is no radiographic evidence of fracture or dislocation. Mild productive degenerative change is noted at the acromioclavicular joint. The glenohumeral articulation is preserved. The overlying soft tissues are normal in appearance. The imaged left upper lobe lung parenchyma appears clear. IMPRESSION: No acute bony abnormality is identified. Electronically signed by: Ben You M.D. 02/05/2019 10:25 AM
--- NOTE | 2019-02-05 10:28 | XRay Report ---
RIGHT SHOULDER 3 VIEWS CLINICAL HISTORY: Fall with shoulder pain. FINDINGS: 3 views of the right shoulder are obtained. No prior studies are available for comparison a t the time of dictation. The skeletal structures are osteopenic. There is no radiographic evidence of fracture or dislocation. Mild productive degenerative change is noted at the acromioclavicular joint . The glenohumeral articulation is preserved. The overlying soft tissues are normal in appearance. Ri ght lower posterior rib fractures are noted. There is a small right pleural effusion. A soft tissue c alcification is noted in the right axilla. IMPRESSION: No fracture or dislocation is seen involving the right shoulder. Electronically signed by: Ben You M.D. 02/05/2019 10:27 AM
[2019-02-05] MEDS: LIDOCAINE 5% 1 PATCH TD SCH (10:30)
[2019-02-05 11:02] LABS: Amphetamines+Metham, Urine Pos (Neg); Barbiturates, Urine Neg (Neg); Benzodiazepine, Urine Neg (Neg); Cocaine, Urine Neg (Neg); MDMA (Ecstacy), Urine Neg (Neg); Methadone, Urine Neg (Neg); Opiate, Urine Pos (Neg); Phencyclidine, Urine Neg (Neg)
[2019-02-05] MEDS: ACETAMINOPHEN 1,000 MG/100 ML VIAL IV PRN ×2 (11:10→21:16)
[2019-02-05] MEDS ORDERED: fentaNYL citrate 100 MCG/2 ML CARP IV ONE (11:17)
[2019-02-05] MEDS ORDERED: VECURONIUM BROMIDE 10 MG VIAL IV ONE (11:17)
[2019-02-05] MEDS ORDERED: ETOMIDATE 2 MG/ML 20 ML VIAL IV ONE (11:17)
[2019-02-05 12:02] LABS: BUN Creatinine Ratio 47.2 (10-20); Calcium 7.3 mg/dl (8.5-10.1); Creatinine Clr Calc Pharmacy 44.5 ml/min; Est GFR (African American) 54.8; Est GFR (Non-African American) 47.3; Potassium 3.9 mmol/L (3.5-5.1); Troponin I 1.39 ng/ml (0-0.045)
--- NOTE | 2019-02-05 13:10 | History and Physical Report ---
DATE OF ADMISSION: 02/05/2019 CONSULTATION REQUESTED BY: Dr. Leiva. REASON FOR CONSULTATION: Elevated troponin. HISTORY OF PRESENT ILLNESS: Mr. Calvin is a 63-year-old gentleman who is not known to our practice or this facility. He was brought in by a concerned citizen after the patient showed up at their door with him complaining of pain. He was brought into the Emergency Department. Currently, the patient is sedated and the majority of history is obtained through review of medical records. Apparently, the patient had a fall off a ladder a few days ago and has been complaining of chest pain, back and belly pain ever since. He has also been having burning micturition. Upon presentation, he was found to have a significant urinary tract infection, acute kidney injury with elevated lactic acid and an elevated troponin level. Cardiology was consulted. Currently, he is receiving antibiotics, IV fluids and pain medication. He voices continued complaints of chest pain and hurting all over currently, the pain is reproducible to palpation. PAST SURGICAL HISTORY: Denies. PAST MEDICAL ILLNESSES: The patient denies. FAMILY HISTORY: Noncontributory. SOCIAL HISTORY: Denies any alcohol, tobacco or recreational drug use. Apparently, the patient lives in a van currently. He is a marine . REVIEW OF SYSTEMS: Unobtainable given the patient's current clinical state. ALLERGIES: No known drug allergies. MEDICATIONS AN OUTPATIENT: Denies. PHYSICAL EXAMINATION: VITALS: Temperature 36.8, pulse 112, respiratory rate 12, blood pressure 144/80. GENERAL: Awake, arousable to verbal stimuli. Moderate acute distress. HEENT: Normocephalic, atraumatic. Pupils equal, round, reactive to light and accommodation. Extraocular muscles intact. Anicteric sclerae. Moist mucous membranes. NECK: No JVD, no bruit. CARDIOVASCULAR: Regular, but fast unable to appreciate murmurs, rubs or gallops. PULMONARY: Clear to auscultation bilaterally. No rales, rhonchi, or wheezing. ABDOMEN: Bowel sounds x4. No rebound or guarding. Diffusely tender. EXTREMITIES: No clubbing, cyanosis or edema. +2 pedal pulses bilaterally. SKIN: Warm and dry. TEST RESULTS: A 12-lead EKG performed in the Emergency Department, independently reviewed at this time shows sinus tachycardia, 108 beats per minute, right bundle branch block pattern, otherwise normal study. A 2D echocardiogram was read as small under filled LV chamber size with mild concentric LVH, hyperdynamic LV systolic function, EF greater than 70%, no segmental left ventricle wall motion abnormalities are noted. No significant valvular pathology. LABORATORY STUDIES OF SIGNIFICANCE: White count of 21. Sodium 135, potassium 3.5, BUN 78, creatinine 1.7. Lactate of 2.2. Initial troponin of 0.4. Repeat of 1.3. IMPRESSION: 1. Multiple rib fractures after a reported fall. 2. Acute urinary tract infection. 3. Presumed acute renal failure. 4. Significant volume depletion. 5. Normal left ventricular systolic function without wall motion abnormalities. RECOMMENDATIONS: It was my pleasure to see Mr. Calvin in consultation today. Given the current clinical context, I believe the troponin is easily explained by peripheral muscle breakdown after at least 1 traumatic event resulting in rib fractures. So at this point, no further cardiac testing or intervention is necessary and I will defer further medical treatment to the primary team.
--- NOTE | 2019-02-05 13:15 | Pharmacy Report ---
Pharmacy Abx Initial Consult - Date of Service February 05, 2019 - Pharmacy Dosing Scope Date of Consult: 02/05/19 Consultation requested by: Dr. Leiva Pharmacy is consulted to initiate vancomycin and aztreonam IV dosing therapy, order appropriate labs and adjust drug dose/frequency. - Subjective The patient is a 63 year old M admitted on 02/05/19 04:12. - Objective Height: 5 ft 7 in Weight: 63.6 kg Vital Signs (Past 12hrs): Vital Signs Temp Pulse Pulse Resp BP BP Pulse Ox 02/05/19 12:00 37.3 C 117 H 30 H 117/54 L 92 02/05/19 07:53 36.8 C 112 H 18 144/80 H 95 02/05/19 05:26 36.6 C 109 H 20 142/76 H 97 02/05/19 04:55 112 H 22 128/70 97 02/05/19 04:30 114 H 23 02/05/19 04:00 114 H 25 H 02/05/19 03:31 112 H 24 97 02/05/19 03:30 114 H 31 H 142/78 H 98 02/05/19 03:00 115 H 29 H 141/78 H 02/05/19 02:30 111 H 26 H 138/79 98 02/05/19 02:17 111 H 29 H 145/92 H 96 02/05/19 01:30 115 H 25 H 153/107 H 99 02/05/19 01:00 108 H 24 140/91 98 Lab Results (24hrs): Laboratory Tests (24 Hours) 02/05/19 02/05/19 02/05/19 11:20 07:02 07:02 WBC Neut # (Auto) Creatinine 1.55 H 1.66 H D Est Cr Clr Drug Dosing 44.5 41.5 Total Creatine Kinase 140 02/05/19 02/05/19 02/05/19 07:02 00:52 00:52 WBC 15.86 H 20.77 H Neut # (Auto) 14.65 H 19.29 H Creatinine 2.21 H Est Cr Clr Drug Dosing 32.4 Total Creatine Kinase 145 Micro Results: 02/05/19 02:50 Aerobic Blood Culture - Pending Blood Anaerobic Blood Culture - Pending 02/05/19 03:01 Aerobic Blood Culture - Pending Blood Anaerobic Blood Culture - Pending 02/05/19 02:07 Urine Culture - Pending Urine,Clean Catch - Assessment & Plan Assessment 63 year old M presents to the ED with generalized pain following a fall from a ladder. Patient was tachycardic, tachypenic, with a WBC of 20.77. Patient also complains of burning with urination and on/off cough with whitish phlegm. Blood cultures x 2 (02/05): pending Urine culture (02/05): pending Plan Empiric vancomycin and aztreonam for treatment of sepsis/complicated UTI Vancomycin IV * Estimated PK Parameters: Vd 0.7 L/kg, Vitaliy 0.041 hr-1, t1/2 17 hr (SCr changes today 00,07, and 1100) : 2.21 -> 1.66 -> 1.55 respectively) * Loading dose: 1500 mg (24 mg/kg) * Maintenance dose: 1000 mg IV (15 mg/kg) every 18 hours * Goal trough for UTI is 10-15, but will target >15 due to systemic symptoms of infection * Will follow AM labs to assess appropriateness of current dose and will obtain a trough once dose is at steady state Aztreonam IV * 1 g IV q8h appropriate for this patient based on indication and renal function * Penicillin allergy noted (seizures): patient did receive one dose of ceftr iaxone in the ED, but there are reports of seizures with ceftriaxone * Aztreonam okay for now pending culture results Pharmacy will continue to follow and will adjust dose/frequency as necessary. Thank you.
[2019-02-05] MEDS: AZTREONAM 1,000 MG in DEXTROSE 5% 100 ML IV SCH ×2 (15:42→15:43)
--- NOTE | 2019-02-05 16:00 | Ultrasound Report ---
ULTRASOUND RIGHT UPPER QUADRANT ABDOMEN CLINICAL HISTORY: Elevated hepatic transaminases. COMPARISON STUDY: Abdominal CT dated 02/05/2019. TECHNIQUE: Real-time, grayscale, and color flow sonography of the right upper quadrant of the abdomen was performed. Images are reviewed in the transverse and longitudinal planes. FINDINGS: Liver: The liver is normal in size and heterogeneous in echotexture. There is nodularity of the hepat ic surface contour indicating early change of cirrhosis. There is no intrahepatic biliary ductal dila tation. The main portal vein is patent. Gallbladder: The gallbladder is filled with sludge. No shadowing gallstones are identified, and the g allbladder wall is normal in thickness. There is trace pericholecystic fluid. A sonographic Stuart's sign could not be assessed. The common bile duct measures up to 0.5 cm in diameter. Pancreas: Visualized portions of the pancreatic head and body are normal in appearance. Right kidney: Survey images of the right kidney demonstrate normal size and echotexture. Mild pelviec tasis is noted without hydronephrosis. Ascites: None. IMPRESSION: 1. The liver is heterogeneous in echotexture and there is nodularity of the hepatic surface contour i ndicating early changes of cirrhosis. 2. There is biliary sludge. 3. Trace pericholecystic fluid is nonspecific. Findings are equivocal for acute cholecystitis which i s not excluded. If there is clinical concern for cholecystitis a nuclear hepatobiliary scan could be considered. 4. There is no intra or extrahepatic biliary ductal dilatation. Electronically signed by: Ben You M.D. 02/05/2019 3:59 PM
--- NOTE | 2019-02-05 17:21 | XRay Report ---
SINGLE VIEW CHEST CLINICAL HISTORY: Dyspnea. Rib fractures. FINDINGS: An AP, portable, upright chest radiograph is compared to chest CT performed the same day 02/05/2019. The examination is degraded by portable technique and patient rotation. The cardiomediastinal silhouette is unremarkable noting atherosclerotic calcification of the thoracic aorta. There are tra ce pleural effusions with bibasilar atelectasis. No pneumothorax is seen. Right posterior lower rib f ractures are again noted. These were better characterized on today's chest CT. IMPRESSION: 1. Small pleural effusions with bibasilar atelectasis. 2. Right posterior lower rib fractures. Electronically signed by: Ben You M.D. 02/05/2019 5:20 PM
[2019-02-06] MEDS ORDERED: VANCOMYCIN HCL 1,000 MG in SODIUM CHLORIDE 0.9% 250 ML IV SCH
[2019-02-06] MEDS: SODIUM CHLORIDE 0.9% 1000ML 1,000 ML IV SCH ×2 (04:30→09:29)
[2019-02-06] MEDS: AZTREONAM 1,000 MG in DEXTROSE 5% 100 ML IV SCH ×3 (05:55→22:12)
[2019-02-06 06:07] LABS: Hematocrit (blood only) 34.3 % (42-52); Hemoglobin 11.6 g/dL (14.0-18.0); Mean Corpuscular Hemoglobin 31.4 pg (25-34); Mean Corpuscular Hgb Conc 33.8 g/dL (32-36); Mean Corpuscular Volume 92.7 fL (80-100); RDW Coefficient of Variation 14.6 % (11.5-14.5); White Blood Count 11.43 K/uL (4.8-10.8)
[2019-02-06 06:14] LABS: Estimated Average Glucose 111 mg/dl; Hemoglobin A1C 5.5 % (4.5-5.6)
[2019-02-06 06:26] LABS: Basophils # (auto) 0.01 K/uL (0-0.2); Basophils % (auto) 0.1 %; Dohle Bodies 1+; Echinocytes 1+; Eosinophils # (auto) 0.02 K/uL (0-0.5); Eosinophils % (auto) 0.2 %; Immature Granulocytes # (auto) 0.22 K/uL (0.00-0.02); Immature Granulocytes % (auto) 1.9 %; Lymphocytes # (auto) 0.37 K/uL (1.2-3.4); Lymphocytes % (auto) 3.2 %; Mean Platelet Volume 10.1 fL (7.4-10.4); Monocytes # (auto) 0.34 K/uL (0.11-0.59); Neutrophils # (auto) 10.47 K/uL (1.4-6.5); Neutrophils % (auto) 91.6 %; Platelet Count 72 K/uL (130-400); Platelet Estimate Decreased (Normal)
[2019-02-06 06:49] LABS: Albumin Level 1.4 gm/dl (3.4-5.0); BUN Creatinine Ratio 46.1 (10-20); Calcium 7.5 mg/dl (8.5-10.1); Creatinine Clr Calc Pharmacy 49.7 ml/min; Est GFR (African American) 59.9; Est GFR (Non-African American) 51.7; Magnesium 2.6 mg/dl (1.8-2.4); Potassium 3.7 mmol/L (3.5-5.1)
[2019-02-06 06:52] LABS: Bilirubin Direct 2.8 mg/dl (0-0.2); Bilirubin,Total 3.6 mg/dl (0.2-1); Total Protein 5.2 gm/dl (6.4-8.2)
[2019-02-06] MEDS: LIDOCAINE 5% 1 PATCH TD SCH (07:39)
--- NOTE | 2019-02-06 10:23 | Infectious Disease Consult ---
Date of Consultation February 06, 2019 Assessment & Plan (1) Gram positive sepsis: continue vanco, repeat blood cultures. If no gnr found, will stop aztreonam, await urine culture results. echo negative for veg. would suggest HIV testing as well. will follow. History of Present Illness Attending Physician: Susie Jordan MD pt admitted after arriving at a home in the area c/o pain. per H&P pt feel off of a ladder recently, however, he denies this on my exam. He provides very little history, states he lives in the area but unable to tell me where or if he has house mates. He was found to have low grade fever and wbc of 22, blood cultures done in ER - now growing S. aureus. Has +HCV ab and + UDS, opiates and meth. UA >30 wbc and +4 salvador, 4mm nonobstructing stone right kidney, swift in place, dark urine. Pt c/o penile pain during exam, asking to get out of bed. anxious on exam, difficult to redirect. He denies cp, sob, cough, no abd pain, but remaining ros limited. Creat 2.2 on admission, 1.4 today. Echo negative, urinue culture pending. He was placed on vanco and aztreonam and is tolerating well. AST elevated at 58, GB ultrasound normal. Allergies Allergy/AdvReac Type Severity Reaction Status Date / Time Penicillins Allergy Unknown UNKNOWN Verified 02/05/19 01:02 Home Medications Home Medications Medication Instructions Recorded Confirmed Type ascorbic acid (vitamin C) [Vitamin 1 g PO DAILY 02/05/19 02/05/19 History C] multivitamin 1 tab PO DAILY 02/05/19 02/05/19 History naproxen sodium [Aleve] 220 mg PO DIRECTED PRN 02/05/19 02/05/19 History oxycodone-acetaminophen [Percocet] 1 - 2 tab PO DIRECTED PRN 02/05/19 02/05/19 History vitamin B complex 1 tab PO DAILY 02/05/19 02/05/19 History Patient History Medical History No known health problems Social History Preferred Language: [place] Communication Ability: Effective Belt Worker Required: No Beliefs That Will Affect Care: None Current Living Situation: Homeless Current Living Situation Comment: Patient lives in his van Other Information That Helps Us Care for You: No Feels Safe at Home: Yes Safety Concerns: Feels Safe At This Time Smoking Status: Never smoker Hx Alcohol Use: No Hx Substance Use: No Review of Systems Review of Systems: All systems reviewed & are unremarkable except as noted in HPI & below Physical Exam Constitutional: WD/WN, vitals as above + ill appearing and + disheveled Eyes: PERRL, conjunctivae normal, anicteric sclerae ENMT: external ear and nose normal, oropharynx normal Neck: normal visual inspection Respiratory: normal respiratory effort, lungs clear to auscultation Cardiovascular: RRR, no murmur, no edema Gastrointestinal (Abdomen): normal bowel sounds, soft, nontender, no hepatosplenomegaly Musculoskeletal: no cyanosis or clubbing, extremities motor strength 5/5 Skin: no rashes, warm and dry Psychiatric: A+Ox3, euthymic affect Results & Data Vital Signs (Past 12 Hours) Vital Signs Temp Pulse Pulse Resp BP Pulse Ox 02/06/19 07:06 37.0 C 108 H 20 153/81 H 96 02/06/19 03:24 36.3 C L 109 H 20 126/70 94 02/05/19 23:33 37.1 C 105 H 18 125/65 98 02/05/19 23:20 106 H Laboratory Results Microbiology 02/05/19 03:01 Blood Aerobic Blood Culture - Preliminary Staphylococcus aureus 02/05/19 02:50 Blood Aerobic Blood Culture - Preliminary Staphylococcus aureus 02/05/19 02:50 Blood Anaerobic Blood Culture - Preliminary Staphylococcus aureus PG Care Time/CCT Total # of Minutes Spent Total Time Spent with Patient: Total time spent is greater than 50% in coordination of care (as documented) at patient's floor/unit and/or counseling patient:
[2019-02-06] MEDS: LACTATED RINGER'S 1,000 ML IV SCH ×2 (10:38→18:00)
--- NOTE | 2019-02-06 10:54 | Hospitalist Progress Note ---
Date of Service February 05, 2019 Assessment & Plan (1) Severe sepsis with acute organ dysfunction: Presents with severe sepsis, meets criteria,, tachycardia, hypotension, leukocytosis with elevated lactic acid Source of infection: Possible pneumonia versus urinary tract infection, grossly positive History of recent fall following refracture causing hemothorax patient has not seen any physician Blood cultures ordered Patient received IV fluids resuscitation Serial lactic acid-shows gradual improvement of level suggestive of response with IV fluid resuscitation Patient started on broad-spectrum antibiotic at that time (PCN allergy)/vancomycin ID eval requested Continue to monitor and telemetry Patient's prognosis remains guarded (2) Gram positive sepsis: Blood culture 2 sets growing gram-positive cocci: Possible staph No open skin wound noted so far, Possible source pneumonia versus UTI? Continued IV vancomycin With blood cultures ordered ID evaluation requested (3) Fall: Status post fall from a 14 feet ladder 2 days back, has been living in his car (van) Is not been eating or drinking for 2 days, Unable to get any history from the patient Received information from patient's acquaintance who brought him to the ER Per Mr. 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 Capellan regarding a fall that occurred approximately 2 days back Fell from a height of 14 feet ladder Severe pain on the right side of the chest, Stayed in his car for the last 2 days Mr. Capellan requested patient to seek medical attention go to the ER yesterday. Diffuse This burning patient not at the door was very confused, mumbling words, and requested to bring him to the ER CT chest shows a fracture of ninth 10th on right side with trace hemothorax Admitted to telemetry with severe sepsis Continue broad-spectrum antibiotic Meds kept on hold as patient is already lethargic and stuporous (4) Ribs, multiple fractures: As outlined above (5) Hemothorax, traumatic: As outlined above (6) Elevated troponin: Been elevated possible type II [place]: Demand ischemia in the setting of hypotension tachycardia severe sepsis acute renal failure Acute input from cardiology Echo shows no wall motion abnormality Continue supportive care with treatment of sepsis, IV fluid resuscitation to prevent hypotension/keep MAP>60 for adequate end organ perfusion (7) Metabolic encephalopathy: Presented with very confused, lethargic, stuporous Wakes up only to painful stimuli Open eyes briefly mumbling words CT head no acute change, patient has been moving all extremities without any visible focal deficit Metabolic encephalopathy due to severe sepsis dehydration infection Continue treatment of underlying cause Continue neurochecks (8) Gram-positive cocci bacteremia: Continue broad-spectrum antibiotic with IV vancomycin Blood culture, ID eval (9) Acute renal failure (ARF): No information regarding baseline renal function/presence of CKD: As patient is out of town /had not seek any medical attention in the last 4 weeks since he is been in [place] Possible prerenal secondary to poor p.o. intake for last few days, sepsis dehydration hypotension Continue IV fluids, creatinine mildly improve after IV fluid bolus Continue to monitor Avoid NSAIDs nephrotoxins We will consult nephrology if renal function does not improve after correction of underlying deficit (10) Hepatitis C antibody positive in blood: Hepatitis C positive and blood Unable to obtain any history from the patient For liver ultrasound Evidence of any acute liver decompensation Will need GI follow-up as an outpatient Status: Full code DVT prophylaxis: Moderate to high risk, pharmacological anticoagulation avoided secondary to evidence hemothorax and chest x-ray/CT chest SCD and teds Disposition: To be determined The limited information available from the patient, from out of town does not have any family or friends support Patient acquaintance/neighbor brought him to the ER, Unable to provide any meaningful information other than that patient was living in his car on his property for the last 3 to 4 weeks Social service consulted to assist in discharge planning PT OT evaluation and patient is medically stable to participate Subjective Patient remains very confused, disoriented, unable to follow any commands, has been spiking temperature overnight, tachycardic Attempt to place Ruby catheter was unsuccessful, as patient was screaming in pain, Nursing reports was getting resistant with minimal advancement of catheter concern for possible enlarged prostate Order for condom catheter, with drainage of very dark concentrated cloudy urine Still hypoxic, requiring oxygen supplement, noted to be tachypneic Remains lethargic, responds to painful stimuli only Review of Systems Review of Systems: Unobtainable due to mental health condition Physical Exam Constitutional: + ill appearing, + altered mental status (Lethargic, stuporous response to painful stimuli only) and + behavioral limitations (Altered mental status, unable to follow commands or answer questions) Disheveled male remains confused, lethargic Eyes: + anicteric sclerae ENMT: Mouth: + oral mucosal abnormality (Dry oral mucosa) Dry mucous membrane Neck: trachea midline, no thyromegaly Respiratory: + respiratory distress and + cough Auscultation: + diminished lung sounds, + crackles, + rales, + rhonchi and + wheezes Cardiovascular: Rate/Rhythm: + tachycardic (Sinus tachycardia noted) Extremities: + abnormal capillary refill (Slow capillary refill, with diffuse mottling noted bilateral lower extremity) Gastrointestinal (Abdomen): Inspection/Auscultation: + abnormal bowel sounds (Diminished) Percussion/Palpation: abdomen soft Musculoskeletal: Extremities: + cyanosis Noted on lower extremity with skin mottling possible due to poor perforation in the setting of severe sepsis Skin: Diffuse mottling noted, mostly lower extremities Neurologic: Obtunded/stuporous, moves extremities with pain response Results & Data Vital Signs (Past 12 Hours) Vital Signs Temp Pulse Pulse Resp BP BP Pulse Ox 02/05/19 07:53 36.8 C 112 H 18 144/80 H 95 02/05/19 05:26 36.6 C 109 H 20 142/76 H 97 02/05/19 04:55 112 H 22 128/70 97 02/05/19 04:30 114 H 23 02/05/19 04:00 114 H 25 H 02/05/19 03:31 112 H 24 97 02/05/19 03:30 114 H 31 H 142/78 H 98 02/05/19 03:00 115 H 29 H 141/78 H 02/05/19 02:30 111 H 26 H 138/79 98 02/05/19 02:17 111 H 29 H 145/92 H 96 02/05/19 01:30 115 H 25 H 153/107 H 99 02/05/19 01:00 108 H 24 140/91 98 02/05/19 00:36 112 H 20 146/87 H 95 02/05/19 00:32 110 H 30 H 146/87 H 99 02/05/19 00:17 36.3 C L 120 H 16 117/68 97
[2019-02-06] MEDS ORDERED: LORazepam 0.5 MG/1 ML VIAL IV STA (16:30)
[2019-02-06] MEDS: VANCOMYCIN HCL 1,000 MG in SODIUM CHLORIDE 0.9% 250 ML IV SCH (16:31)
--- NOTE | 2019-02-06 20:15 | Hospitalist Progress Note ---
Date of Service February 06, 2019 Assessment & Plan (1) Drug abuse, amphetamine type: possible drug withdrawl ? remains tachycardic hypertensive confused , obtuned urine tx + for amphetmine /Meth cont supportive care with IV hydration , BDZ for withdrawal symptom control of hypertensive episodes with veso dialators /utilize centrally acting meds -clonidine avoid beta blockers -with cause reflex tachycardia /un opposed Alpha affects causing hypertensive emergency Hepc positive unable to obtain hx of IV drug use or HIV status due to obtunded status of the pt ECHO shows no valvular vegetation cont tele monitor (2) Severe sepsis with acute organ dysfunction: Presents with severe sepsis, meets criteria,, tachycardia, hypotension, leukocytosis with elevated lactic acid Source of infection: Possible pneumonia versus urinary tract infection, grossly positive History of recent fall following refracture causing hemothorax patient has not seen any physician Blood cultures : shows gram positive bacteremia cont IV ABx Patient received IV fluids resuscitation Serial lactic acid-shows gradual improvement of level suggestive of response with IV fluid resuscitation Patient started on broad-spectrum antibiotic at that time (PCN allergy)/vancomycin ID eval requested-appreciate input if repeat blood culture does not grow gram negative organisms can d/c Azactum Continue to monitor and telemetry Patient's prognosis remains guarded (3) Gram positive sepsis: Blood culture 2 sets growing gram-positive cocci: Possible staph No open skin wound noted so far, Possible source pneumonia versus UTI/vs endocarditis ( unknown drug abuse status /Hep c Positive ) Continued IV vancomycin repeat blood culture ordered ID evaluation requested if repeat blood culture cont to grow staph may need CESAR (4) Fall: Status post fall from a 14 feet ladder 2 days back, has been living in his car (van) Is not been eating or drinking for 2 days, Unable to get any history from the patient Received information from patient's acquaintance who brought him to the ER Per Mr. 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 Capellan regarding a fall that occurred approximately 2 days back Fell from a height of 14 feet ladder Severe pain on the right side of the chest, Stayed in his car for the last 2 days Mr. Capellan requested patient to seek medical attention go to the ER yesterday. Diffuse This burning patient not at the door was very confused, mumbling words, and requested to bring him to the ER CT chest shows a fracture of ninth 10th on right side with trace hemothorax Admitted to telemetry with severe sepsis Continue broad-spectrum antibiotic po meds kept on hold (5) Ribs, multiple fractures: As outlined above (6) Hemothorax, traumatic: As outlined above (7) Elevated troponin: Been elevated possible type II [place]: Demand ischemia in the setting of hypotension tachycardia severe sepsis acute renal failure Acute input from cardiology Echo shows no wall motion abnormality Continue supportive care with treatment of sepsis, IV fluid resuscitation to prevent hypotension/keep MAP>60 for adequate end organ perfusion (8) Metabolic encephalopathy: Presented with very confused, lethargic, stuporous Wakes up only to painful stimuli Open eyes briefly mumbling words CT head no acute change, patient has been moving all extremities without any visible focal deficit Metabolic encephalopathy due to severe sepsis dehydration infection Continue treatment of underlying cause Continue neurochecks (9) Gram-positive cocci bacteremia: Continue broad-spectrum antibiotic with IV vancomycin Blood culture, ID eval (10) Acute renal failure (ARF): No information regarding baseline renal function/presence of CKD: As patient is out of town /had not seek any medical attention in the last 4 weeks since he is been in [place] Possible prerenal secondary to poor p.o. intake for last few days, sepsis dehydration hypotension Continue IV fluids, creatinine mildly improve after IV fluid bolus Continue to monitor Avoid NSAIDs nephrotoxins We will consult nephrology if renal function does not improve after correction of underlying deficit (11) Hepatitis C antibody positive in blood: Hepatitis C positive and blood Unable to obtain any history from the patient For liver ultrasound Evidence of any acute liver decompensation Will need GI follow-up as an outpatient Status: Full code DVT prophylaxis: Moderate to high risk, pharmacological anticoagulation avoided secondary to evidence hemothorax and chest x-ray/CT chest SCD and teds Disposition: To be determined The limited information available from the patient, from out of town does not have any family or friends support Patient acquaintance/neighbor brought him to the ER, Unable to provide any meaningful information other than that patient was living in his car on his property for the last 3 to 4 weeks Social service consulted to assist in discharge planning PT OT evaluation and patient is medically stable to participate Subjective remains obtunted tachycardic /hypertensive SBP 170/94 possible withdrawl? urine tx screen positive for meth /Amphetamine cont supportice care with IV hydration , IV ativan PRN for agitation cont hypertensive episode with Clonidine ( ordered for patch and pt is unable to take PO due to lathergy ) PRN IV hydralaize ordered cont tele monitoring Physical Exam Constitutional: + ill appearing, + altered mental status (Lethargic, stuporous response to painful stimuli only) and + behavioral limitations (Altered mental status, unable to follow commands or answer questions) Eyes: + anicteric sclerae ENMT: Mouth: + oral mucosal abnormality (Dry oral mucosa) Neck: trachea midline, no thyromegaly Respiratory: + respiratory distress and + cough Auscultation: + diminished lung sounds, + crackles, + rales, + rhonchi and + wheezes Cardiovascular: Rate/Rhythm: + tachycardic (Sinus tachycardia noted) Extremities: + abnormal capillary refill (Slow capillary refill, with diffuse mottling noted bilateral lower extremity) Gastrointestinal (Abdomen): Inspection/Auscultation: + abnormal bowel sounds (Diminished) Percussion/Palpation: abdomen soft Musculoskeletal: Extremities: + cyanosis Results & Data Vital Signs (Past 12 Hours) Vital Signs Temp Pulse Pulse Resp BP Pulse Ox 02/06/19 19:37 36.4 C L 119 H 18 170/94 H 96 02/06/19 18:00 120 H 23 165/88 H 97 02/06/19 15:04 36.8 C 110 H 22 160/93 H 96 02/06/19 10:49 37.0 C 107 H 20 151/83 H 97
[2019-02-06] MEDS ORDERED: FOLIC ACID 1 MG in SYRINGE 9.8 ML IV STA (20:42)
[2019-02-06] MEDS ORDERED: THIAMINE HCL 100 MG in SYRINGE 9 ML IV STA (20:42)
[2019-02-06] MEDS ORDERED: LORazepam 1 MG/2 ML VIAL IV STA (20:45)
[2019-02-06] MEDS ORDERED: HydrALAZINE HCL 20 MG/ML VIAL IV STA (20:46)
[2019-02-06] MEDS ORDERED: cloNIDine HCL 0.1 MG/24 HR TRANSDERM SYS TD SCH (21:00)
[2019-02-06] MEDS: D5W AND NSS 1,000 ML IV SCH (21:16)
[2019-02-07] MEDS: CHECK CLONIDINE PATCH PLACEMENT SCH ×3 (00:22→15:44)
[2019-02-07] MEDS: ACETAMINOPHEN 1,000 MG/100 ML VIAL IV PRN (00:31)
[2019-02-07] MEDS: HydrALAZINE HCL 20 MG/ML VIAL IV PRN (03:53)
[2019-02-07] MEDS: D5W AND NSS 1,000 ML IV SCH ×3 (03:55→21:19)
[2019-02-07] MEDS: AZTREONAM 1,000 MG in DEXTROSE 5% 100 ML IV SCH (05:20)
[2019-02-07 06:18] LABS: Albumin Level 1.4 gm/dl (3.4-5.0); Bilirubin Direct 1.8 mg/dl (0-0.2); Creatinine Clr Calc Pharmacy 56.8 ml/min; Est GFR (African American) 70.4; Est GFR (Non-African American) 60.7
[2019-02-07 06:22] LABS: Bilirubin,Total 2.4 mg/dl (0.2-1); Total Protein 5.3 gm/dl (6.4-8.2)
[2019-02-07] MEDS: VANCOMYCIN HCL 1,000 MG in SODIUM CHLORIDE 0.9% 250 ML IV SCH (08:39)
[2019-02-07] MEDS: LIDOCAINE 5% 1 PATCH TD SCH (08:40)
[2019-02-07 09:23] LABS: Hematocrit (blood only) 34.5 % (42-52); Hemoglobin 11.7 g/dL (14.0-18.0); Mean Corpuscular Hemoglobin 31.1 pg (25-34); Mean Corpuscular Volume 91.8 fL (80-100); RDW Coefficient of Variation 14.8 % (11.5-14.5); RDW Standard Deviation 50.1 fL (36.4-46.3); Red Blood Count 3.76 M/uL (4.7-6.1); White Blood Count 12.05 K/uL (4.8-10.8)
[2019-02-07 09:32] LABS: BUN Creatinine Ratio 42.4 (10-20); Calcium 7.1 mg/dl (8.5-10.1); Creatinine Clr Calc Pharmacy 56.4 ml/min; Est GFR (African American) 69.7; Est GFR (Non-African American) 60.2; Potassium 3.5 mmol/L (3.5-5.1)
[2019-02-07 09:43] LABS: Mean Corpuscular Hgb Conc 33.9 g/dL (32-36); Mean Platelet Volume 10.3 fL (7.4-10.4); Platelet Count 85 K/uL (130-400)
[2019-02-07] MEDS: FOLIC ACID 1 MG in SYRINGE 9.8 ML IV SCH (10:46)
[2019-02-07] MEDS: THIAMINE HCL 100 MG in SYRINGE 9 ML IV SCH (10:46)
--- NOTE | 2019-02-07 14:24 | Infectious Disease Progress Nt ---
Date of Service February 07, 2019 Assessment & Plan (1) Gram positive sepsis: will change to rocephin and repeat blood cultures. echo negative for vegetation. If continued + cultures may require MRI spine r/o osteo. urine culture also growing MSSA. Will need HCV viral load and HIV testing as well. Subjective pt remains on abx, less pain today, comfortable on my exam. All blood cultures + MSSA Remains on vanco and aztreonam. wbc improved to 11, creat improved to 1.2 RUQ ultrasound showing early cirrhosis. unknown h/o HCV virus. Review of Systems Review of Systems: All systems reviewed & are unremarkable except as noted in HPI & below Physical Exam Constitutional: WD/WN, vitals as above + ill appearing and + disheveled Eyes: PERRL, conjunctivae normal, anicteric sclerae ENMT: external ear and nose normal, oropharynx normal Neck: normal visual inspection Respiratory: normal respiratory effort, lungs clear to auscultation Cardiovascular: RRR, no murmur, no edema Gastrointestinal (Abdomen): normal bowel sounds, soft, nontender, no hepatosplenomegaly Musculoskeletal: no cyanosis or clubbing, extremities motor strength 5/5 Skin: no rashes, warm and dry Psychiatric: A+Ox3, euthymic affect Results & Data Vital Signs (Past 12 Hours) Vital Signs Temp Pulse Pulse Resp BP Pulse Ox 02/07/19 11:37 37.4 C 128 H 34 H 157/105 H 97 02/07/19 08:01 36.9 C 115 H 20 159/87 H 96 02/07/19 04:52 37.5 C 117 H 147/73 H 02/07/19 03:43 37.7 C H 118 H 22 162/80 H 94 Laboratory Results Microbiology 02/06/19 10:46 Blood Aerobic Blood Culture - Preliminary Gram positive cocci clusters 02/06/19 10:46 Blood Anaerobic Blood Culture - Preliminary No growth in Anaerobic bottle after 24 hours. 02/06/19 10:39 Blood Aerobic Blood Culture - Preliminary Gram positive cocci clusters 02/06/19 10:39 Blood Anaerobic Blood Culture - Preliminary No growth in Anaerobic bottle after 24 hours. 02/05/19 03:01 Blood Aerobic Blood Culture - Final Staphylococcus aureus 02/05/19 03:01 Blood Anaerobic Blood Culture - Final 02/05/19 02:50 Blood Aerobic Blood Culture - Final Staphylococcus aureus 02/05/19 02:50 Blood Anaerobic Blood Culture - Final Staphylococcus aureus 02/05/19 02:07 Urine,Clean Catch Urine Culture - Preliminary Staphylococcus aureus PG Care Time/CCT Total # of Minutes Spent Total Time Spent with Patient: Total time spent is greater than 50% in coordination of care (as documented) at patient's floor/unit and/or counseling patient:
[2019-02-07] MEDS: cefTRIAXone SODIUM 2,000 MG in DEXTROSE 5% 50 ML IV SCH (15:43)
--- NOTE | 2019-02-07 16:24 | Hospitalist Progress Note ---
Date of Service February 07, 2019 Assessment & Plan (1) Drug abuse, amphetamine type: possible drug withdrawal? remains tachycardic hypertensive confused , obtunded urine tx + for amphetmine /Meth cont supportive care with IV hydration , BDZ for withdrawal symptom control of hypertensive episodes with vasodilators enthesis PRN IV hydralazine ordered/utilize centrally acting meds -clonidine avoid beta blockers -with cause reflex tachycardia /un opposed Alpha affects c ausing hypertensive emergency Hepc positive /ordered for hep C RNA load/unable to obtain consent for HIV test as patient remains confused disoriented unable to obtain hx of IV drug use or HIV status due to obtunded status of the pt ECHO shows no valvular vegetation Blood cultures, persistent gram-positive bacteremia Appreciate input from ID Repeat blood cultures ordered today 02/07/2019 If persistent gram-positive bacteremia noted, patient will need CESAR for evaluation of endocarditis Cardiology already involved (2) Severe sepsis with acute organ dysfunction: Presents with severe sepsis, meets criteria,, tachycardia, hypotension, leukocytosis with elevated lactic acid Source of infection: Possible pneumonia versus urinary tract infection, grossly positive History of recent fall following fractures of multiple ribs causing hemothorax Patient stayed in his car for last few days, without eating or drinking did not seek any medical attention Brought to the ER by his acquaintance Blood cultures : shows gram positive bacteremia /multiple specimens-and MSSA Urine culture: Staph aureus MSSA cont IV ABx diabetic change to Rocephin Patient received IV fluids resuscitation Serial lactic acid-shows gradual improvement of level suggestive of response with IV fluid resuscitation Patient started on broad-spectrum antibiotic at that time (PCN allergy)/vancomycin ID eval requested-appreciate input repeat blood culture negative for gram negative organisms Azactam-DC'd Continue to monitor and telemetry Patient's prognosis remains guarded (3) Gram positive sepsis: Blood cultures: On 02/04/20192 bottle gram-positive bacteremia in cluster/staph MSSA 02/06: X2 bottle gram-positive bacteremia staph Repeat blood cultures: Ordered today 02/07/[address] Ahn No open skin wound noted so far, Possible source pneumonia versus UTI/vs endocarditis ( unknown drug abuse status /Hep c Positive ) ID evaluation requested appreciate input if repeat blood culture cont to grow staph may need CESAR to assess for bacterial endocarditis (4) Fall: Status post fall from a 14 feet ladder 2 days back, has been living in his car (van) Is not been eating or drinking for 2 days, Unable to get any history from the patient Received information from patient's acquaintance who brought him to the ER Per Mr. 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 Capellan regarding a fall that occurred approximately 2 days back Fell from a height of 14 feet ladder Severe pain on the right side of the chest, Stayed in his car for the last 2 days Mr. Capellan requested patient to seek medical attention go to the ER yesterday. Diffuse This burning patient not at the door was very confused, mumbling words, and requested to bring him to the ER CT chest shows a fracture of ninth 10th on right side with trace hemothorax Admitted to telemetry with severe sepsis Continue broad-spectrum antibiotic po meds kept on hold -high risk for aspiration, obtundation (5) Ribs, multiple fractures: As outlined above (6) Hemothorax, traumatic: As outlined above Avoid antiplatelets anticoagulants (7) Elevated troponin: Been elevated possible type II MD: Demand ischemia in the setting of hypotension tachycardia severe sepsis acute renal failure Acute input from cardiology Echo shows no wall motion abnormality Continue supportive care with treatment of sepsis, IV fluid resuscitation to prevent hypotension/keep MAP>60 for adequate end organ perfusion (8) Metabolic encephalopathy: Presented with very confused, lethargic, stuporous Wakes up only to painful stimuli Open eyes briefly mumbling words CT head no acute change, patient has been moving all extremities without any visible focal deficit Metabolic encephalopathy due to severe sepsis dehydration infection Continue treatment of underlying cause Continue neurochecks (9) Gram-positive cocci bacteremia: Multiple blood culture positive for gram-positive cocci/staph On IV Rocephin: Antibiotic adjusted by ID May need CESAR (10) Acute renal failure (ARF): No information regarding baseline renal function/presence of CKD: As patient is out of town /had not seek any medical attention in the last 4 weeks since he is been in [place] Possible prerenal secondary to poor p.o. intake for last few days, sepsis dehydration hypotension Continue IV fluids, creatinine mildly improve after IV fluid bolus Continue to monitor Avoid NSAIDs nephrotoxins Creatinine continues to improve with adequate urine output (11) Hepatitis C antibody positive in blood: Hepatitis C positive Ordered for hep C RNA to rule Unable to obtain any history from the patient Liver ultrasound shows evidence of cirrhosis No evidence of any acute liver decompensation ID following Status: Full code DVT prophylaxis: Moderate to high risk, pharmacological anticoagulation avoided secondary to evidence hemothorax and chest x-ray/CT chest SCD and teds Disposition: To be determined The limited information available from the patient, from out of town does not have any family or friends support Patient acquaintance/neighbor brought him to the ER, Unable to provide any meaningful information other than that patient was living in his car on his property for the last 3 to 4 weeks Social service consulted to assist in discharge planning PT OT evaluation and patient is medically stable to participate Subjective Remains confused, obtunded, opens eyes to voice, mumbling words, Having productive cough with blood-tinged yellow thick sputum Remains tachycardic heart rate 1 10-1 20s sinus tach with intermittent hypertensive episode BP [id number] Physical Exam Constitutional: + ill appearing, + altered mental status (Lethargic, stuporous response to painful stimuli only) and + behavioral limitations (Altered mental status, unable to follow commands or answer questions) Eyes: + anicteric sclerae ENMT: Mouth: + oral mucosal abnormality (Dry oral mucosa) Neck: trachea midline, no thyromegaly Respiratory: + respiratory distress and + cough Auscultation: + diminished lung sounds, + crackles, + rales, + rhonchi and + wheezes Cardiovascular: Rate/Rhythm: + tachycardic (Sinus tachycardia noted) Extremities: + abnormal capillary refill (Slow capillary refill, with diffuse mottling noted bilateral lower extremity) Gastrointestinal (Abdomen): Inspection/Auscultation: + abnormal bowel sounds (Diminished) Percussion/Palpation: abdomen soft Musculoskeletal: Extremities: + cyanosis Results & Data Vital Signs (Past 12 Hours) Vital Signs Temp Pulse Pulse Resp BP Pulse Ox 02/07/19 15:37 36.9 C 126 H 38 H 164/89 H 96 02/07/19 11:37 37.4 C 128 H 34 H 157/105 H 97 02/07/19 08:01 36.9 C 115 H 20 159/87 H 96 02/07/19 04:52 37.5 C 117 H 147/73 H
[2019-02-08] MEDS: CHECK CLONIDINE PATCH PLACEMENT SCH ×4 (00:31→23:43)
[2019-02-08] MEDS ORDERED: OPTIRAY 320 125ml IV PRN (01:18)
[2019-02-08] MEDS ORDERED: ASPIRIN 81 MG CHEW PO STA (01:44)
[2019-02-08] MEDS ORDERED: PHARMACIST DISCHARGE MED REC CONSULT PRN (01:45)
[2019-02-08 06:00] LABS: Hematocrit (blood only) 34.7 % (42-52); Hemoglobin 11.6 g/dL (14.0-18.0); Mean Corpuscular Hemoglobin 30.8 pg (25-34); Mean Corpuscular Hgb Conc 33.4 g/dL (32-36); RDW Coefficient of Variation 15.1 % (11.5-14.5); Red Blood Count 3.77 M/uL (4.7-6.1); White Blood Count 11.78 K/uL (4.8-10.8)
[2019-02-08 06:14] LABS: Mean Platelet Volume 10.1 fL (7.4-10.4); Platelet Count 76 K/uL (130-400)
[2019-02-08 06:19] LABS: Estimated Average Glucose 114 mg/dl; Hemoglobin A1C 5.6 % (4.5-5.6)
[2019-02-08] MEDS: D5W AND NSS 1,000 ML IV SCH ×2 (06:29→16:31)
--- NOTE | 2019-02-08 06:35 | CT Scan Report ---
CT angio neck with con HISTORY: Mental status change. Stroke. cva TECHNIQUE: Multiaxial CT angiography of the neck was performed IV contrast: 100 cc All measurements were calculated based on NASCET criteria. Maximum intensity projection images were also obtained. A dose lowering technique was utilized adhering to the principles of ALARA. COMPARISON STUDY: None. FINDINGS: The aortic arch and proximal great vessels are widely patent. There is no significant sten osis, occlusion, or dissection identified within the bilateral common carotid, internal carotid, or v ertebral arteries. Minimal scattered plaque formation at the carotid bifurcations. IMPRESSION: 1. No significant stenosis of the carotid or vertebral basilar system is identified. 2. Bilateral pleural effusions. The above report was generated using voice recognition software. It may contain grammatical, syntax or spelling errors. Electronically signed by: Grzegorz Donovan M.D. 02/08/2019 6:34 AM
[2019-02-08 06:36] LABS: Basophils # (auto) 0.02 K/uL (0-0.2); Basophils % (auto) 0.2 %; Echinocytes 1+; Immature Granulocytes # (auto) 0.16 K/uL (0.00-0.02); Immature Granulocytes % (auto) 1.4 %; Lymphocytes # (auto) 0.56 K/uL (1.2-3.4); Lymphocytes % (auto) 4.8 %; Monocytes # (auto) 0.62 K/uL (0.11-0.59); Monocytes % (auto) 5.3 %; Neutrophils # (auto) 10.42 K/uL (1.4-6.5); Neutrophils % (auto) 88.3 %
[2019-02-08 06:42] LABS: Albumin Level 1.2 gm/dl (3.4-5.0); BUN Creatinine Ratio 40.4 (10-20); Bilirubin Direct 1.4 mg/dl (0-0.2); Creatinine Clr Calc Pharmacy 63.4 ml/min; Est GFR (African American) 80.3; Est GFR (Non-African American) 69.3; Potassium 3.7 mmol/L (3.5-5.1)
[2019-02-08 06:45] LABS: Albumin Globulin Ratio 0.3 (0.9-2); Globulin 4.3 gm/dl (2.5-4.0); Total Protein 5.5 gm/dl (6.4-8.2)
--- NOTE | 2019-02-08 06:57 | CT Scan Report ---
CT OF THE HEAD WITHOUT CONTRAST CLINICAL HISTORY: Cerebrovascular accident. Left arm weakness. COMPARISON STUDY: Head CT February 05, 2019. CT DOSE: 614.27 mGy.cm TECHNIQUE: Helical axial images of the head were obtained without IV contrast. Automated exposure con trol was utilized for the study. A dose lowering technique was utilized adhering to the principles o f ALARA. FINDINGS: No acute intracranial hemorrhage, midline shift or mass effect is present. The ventricular system is unremarkable. The basilar cisterns are patent. No extra-axial collections are present. Ther e are no findings to suggest acute dural sinus thrombosis or acute territorial infarct. No significan t calvarial abnormalities are present. Visualized portions of the sinuses and mastoid air cells are c lear. IMPRESSION: No acute intracranial findings. Electronically signed by: Sam Worrell M.D. 02/08/2019 6:56 AM
--- NOTE | 2019-02-08 07:04 | CT Scan Report ---
CTA ANGIOGRAPHY OF THE HEAD CLINICAL HISTORY: Left arm weakness. Cerebrovascular accident. COMPARISON STUDY: Head CT February 05, 2011. TECHNIQUE: Helical axial images of the head were obtained following uneventful intravenous administr ation of 118 cc of Optiray 320. Automated exposure control was utilized for the study. A dose lower ing technique was utilized adhering to the principles of ALARA. CT DOSE: 563.93 mGy.cm FINDINGS: No acute intracranial hemorrhage, midline shift or mass effect is present. Ventricular syst em is normal. The basilar cisterns are patent. There are no extra-axial collections. The bilateral M1 , M2, A1 and A2 segments are patent. There is no intracranial aneurysm, dissection or vessel cut off. The posterior circulation is intact, including the intracranial portions of the bilateral vertebral arteries and the basilar artery as well as the bilateral posterior cerebral arteries. IMPRESSION: Unremarkable CTA of the head. Electronically signed by: Sam Worrell M.D. 02/08/2019 7:03 AM
[2019-02-08] MEDS: LIDOCAINE 5% 1 PATCH TD SCH (08:20)
[2019-02-08] MEDS: FOLIC ACID 1 MG in SYRINGE 9.8 ML IV SCH (08:20)
[2019-02-08] MEDS: THIAMINE HCL 100 MG in SYRINGE 9 ML IV SCH (08:20)
[2019-02-08] MEDS: ASPIRIN 81 MG ECTAB PO SCH (08:21)
--- NOTE | 2019-02-08 10:18 | Infectious Disease Progress Nt ---
Date of Service February 08, 2019 Assessment & Plan (1) Gram positive sepsis: will continue rocephin and repeat blood cultures. echo negative for vegetation. If continued + cultures may require MRI spine r/o osteo. urine culture also growing MSSA. Will need HCV viral load and HIV testing as well. Subjective pt more awake today, asking to eat. states he is hungry. denies any pain currently, had ct head and neck yesterday due to confusion, normal. Remains with MSSA sepsis, all blood cultures +, currently npo, CESAR pending. TTE negative. afebrile. He remains on Rocephin and is tolerating well. wbc improved to 11, creat improved to 1. sputum culture pending. Review of Systems Review of Systems: All systems reviewed & are unremarkable except as noted in HPI & below Physical Exam Constitutional: WD/WN, vitals as above + ill appearing and + disheveled Eyes: PERRL, conjunctivae normal, anicteric sclerae ENMT: external ear and nose normal, oropharynx normal Neck: normal visual inspection Respiratory: normal respiratory effort, lungs clear to auscultation Cardiovascular: RRR, no murmur, no edema Gastrointestinal (Abdomen): normal bowel sounds, soft, nontender, no hepatosplenomegaly Musculoskeletal: no cyanosis or clubbing, extremities motor strength 5/5 Skin: no rashes, warm and dry Psychiatric: A+Ox3, euthymic affect Results & Data Vital Signs (Past 12 Hours) Vital Signs Temp Pulse Resp BP Pulse Ox 02/08/19 03:33 37.4 C 102 H 21 150/90 H 94 02/08/19 00:05 37.1 C 102 H 33 H 143/94 H 97 Laboratory Results Microbiology 02/05/19 02:07 Urine,Clean Catch Urine Culture - Final Staphylococcus aureus 02/07/19 20:40 Sputum, Expectorated Gram Stain - Final 02/06/19 10:46 Blood Aerobic Blood Culture - Preliminary Staphylococcus aureus 02/06/19 10:46 Blood Anaerobic Blood Culture - Preliminary No growth in Anaerobic bottle after 24 hours. 02/06/19 10:39 Blood Aerobic Blood Culture - Preliminary Staphylococcus aureus 02/06/19 10:39 Blood Anaerobic Blood Culture - Preliminary No growth in Anaerobic bottle after 24 hours. 02/07/19 15:14 Blood Aerobic Blood Culture - Preliminary Gram positive cocci clusters 02/07/19 14:55 Blood Aerobic Blood Culture - Preliminary Gram positive cocci clusters 02/05/19 03:01 Blood Aerobic Blood Culture - Final Staphylococcus aureus 02/05/19 03:01 Blood Anaerobic Blood Culture - Final 02/05/19 02:50 Blood Aerobic Blood Culture - Final Staphylococcus aureus 02/05/19 02:50 Blood Anaerobic Blood Culture - Final Staphylococcus aureus PG Care Time/CCT Total # of Minutes Spent Total Time Spent with Patient: Total time spent is greater than 50% in coordination of care (as documented) at patient's floor/unit and/or counseling patient:
[2019-02-08] MEDS ORDERED: GADOBUTROL 65ML VIAL IV PRN (12:19)
--- NOTE | 2019-02-08 12:34 | Magnetic Resonance Report ---
MR brain wo/w con CLINICAL HISTORY: cva? Mental status change COMPARISON STUDY: No previous studies for comparison. TECHNIQUE: Utilizing a 1.5 Jessica magnet and dedicated coil, multiplanar, multiecho imaging of the br ain was performed pre and postcontrast administration. IV administration of 7 mL of Gadavist contras t was uneventful. FINDINGS: Diffusion-weighted images show no evidence for an acute ischemic event. There are findings of age-related atrophy and chronic small vessel change. Postcontrast images are considered negative for enhancing lesion. Sella and parasellar regions are unremarkable. IMPRESSION: 1. Age-related change. 2. Otherwise negative study. 3. Study specifically shows no evidence for an acute ischemic event. The above report was generated using voice recognition software. It may contain grammatical, syntax or spelling errors. Electronically signed by: Grzegorz Donovan M.D. 02/08/2019 12:33 PM
[2019-02-08 13:07] LABS: Amphetamine Urine, Confirm 472 NG/ML (CUTOFF=250); Codeine Urine NEGATIVE NG/ML (CUTOFF=50); Hydrocodone Urine NEGATIVE NG/ML (CUTOFF=50); Hydromor Urine NEGATIVE NG/ML (CUTOFF=50); Methamphetamine, Ur Confirm 1320 NG/ML (CUTOFF=250); Morphine Urine 2790 NG/ML (CUTOFF=50); Norhydrocodone Conf Ur NEGATIVE NG/ML (CUTOFF=50); Noroxycodone Urine NEGATIVE NG/ML (CUTOFF=50); Oxycodone Urine NEGATIVE NG/ML (CUTOFF=50); Oxymorph Urine NEGATIVE NG/ML (CUTOFF=50)
[2019-02-08] MEDS: cefTRIAXone SODIUM 2,000 MG in DEXTROSE 5% 50 ML IV SCH (14:47)
--- NOTE | 2019-02-08 15:02 | Neurology Consultation ---
Date of Consultation February 08, 2019 Assessment & Plan (1) Fall: 1. MRI brain - no evidence of stroke 2. CTA head and neck no evidence of vascular stenosis or occlusion 3. TTE- no ASD 4. rib fractures- pain with movement and unwilling to move for exam 5. ID - treat UTI and blood cultures to culture 6. HEP c +- needs further work up with HIV testing 7. overall weakness- unable to determine if weakness is pain related no radiographic evidence of fracture of shoulder arm 8. MRI c spine r/o central cord injury 9. may need MRI brachial plexis at some point if left arm does not improve (2) Metabolic encephalopathy: 1. same as above (3) Sepsis secondary to UTI: 1. same as above Supervising Physician Co-Signing Physician Notes I have seen and discussed above patient with Dr Rosa Rendon, neurology. Pt seen and examined. Hx reviewed. Images including MRI brain reviewed. CT c spine report reviewed. Pt sleepy, arousable, confused. O x 3, no facial asymm. Cooperation limited sec to mental status and pain.RUE mild weakness, LUE decreased tone and moderately weak. Legs seem more full with nml tone. UE reflexes intact, LE mildly brisk but no clonus and toes down. Appears to be decreased temp sensation arms. Imp polyfactorial encephalopathy. Diifuse weakness arms >> legs, r/o central cord syndrome. MRI c spine. Could be L brachial plexopathy given that exam is somewhat unreliable. It is reassuring that CT C spine did not show fx or sublux but cord could still be contused. If MRI c spine is abnl, ie any signs of trauma would place pt is a hard cervical collar and contact neurosurgery re further management.DIEUDONNE Rendon MD History of Present Illness Reason for Consultation: CVA? 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 He says he fell a couple of times from the ladder 2 days apart, was feeling a lot of generalized pain and his friend brought him to the hospital. Also complains on and off occasional cough with whitish phlegm and pain in the chest, belly and back and all over. He was also having burning micturition. He was tachycardic in the ER with some mild hypothermia and leukocytosis and ALEE and elevated lactic acid. He has several fractured ribs and UTI. His Troponin was elevated. He claims he doesn't do street drugs but is + for amphetamines, meth. He is septic with gram +cocci clusters in blood. he has been living in his care for 2 days after the fall and has not been eating or drinking. He is not forth coming with information and most of the Hpi is from chart review. denies current CP, SOB, N, V, vision changes, slurred speech, bowel or bladder issues (currently has swift catheter) +back and limb pain, does not want to move. Allergies Allergy/AdvReac Type Severity Reaction Status Date / Time Penicillins Allergy Unknown UNKNOWN Verified 02/05/19 01:02 Home Medications Home Medications Medication Instructions Recorded Confirmed Type ascorbic acid (vitamin C) [Vitamin 1 g PO DAILY 02/05/19 02/05/19 History C] multivitamin 1 tab PO DAILY 02/05/19 02/05/19 History naproxen sodium [Aleve] 220 mg PO DIRECTED PRN 02/05/19 02/05/19 History oxycodone-acetaminophen [Percocet] 1 - 2 tab PO DIRECTED PRN 02/05/19 02/05/19 History vitamin B complex 1 tab PO DAILY 02/05/19 02/05/19 History Patient History Medical History No known health problems Social History Preferred Language: Samoan Communication Ability: Impaired Airport Guide Required: No Beliefs That Will Affect Care: None Current Living Situation: Homeless Current Living Situation Comment: Patient lives in his van Other Information That Helps Us Care for You: No Feels Safe at Home: Yes Safety Concerns: Feels Safe At This Time Smoking Status: Never smoker Hx Alcohol Use: No Hx Substance Use: No Physical Exam Physical Exam: Physical Exam: Constitutional: appearance disheveled Ears, Nose, Mouth and Throat: mucous membranes moist, no injection and skin normal, eyes normal Cardiovascular: normal S-1 and S-2 and regular rate and rhythm Respiratory: course breath sounds Musculoskeletal: edema bilaterally hands and right LE > left LE Skin: no numerous tatoos Eyes: extraocular muscles intact (EOMI) and pupils equal, round and reactive to light (PERRL) NEUROLOGIC EXAMINATION: Mental status: Alert and interactive Oriented to hospital and knows he is where [employer] [place] Oriented to person Speech fluent with no evidence of aphasia Cranial Nerves smile eye brow raise symmetric Reflexes: Deep tendon reflexes were symmetrical and graded 2/5. down going toes Sensory: intact to light and cool touch Coordination: unable to lift arms Gait/Stance: Posture lying in bed Motor: unable to assess Strength: does not fully cooperate with exam due to pain and swelling in hands and legs, UE lift against gravity but not against resistance. lifts both LE against gravity no resistance Results & Data Vital Signs (Past 12 Hours) Vital Signs Temp Pulse Resp BP Pulse Ox 02/08/19 12:19 37.4 C 100 H 22 152/83 H 97 02/08/19 03:33 37.4 C 102 H 21 150/90 H 94 Laboratory Results Abnormal lab results 02/05/19 02/08/19 02/08/19 Range/Units 10:20 05:29 05:29 WBC 11.78 H (4.8-10.8) K/uL RBC 3.77 L (4.7-6.1) M/uL Hgb 11.6 L (14.0-18.0) g/dL Hct 34.7 L (42-52) % RDW Std Deviation 51.0 H (36.4-46.3) fL RDW Coeff of Amari 15.1 H (11.5-14.5) % Plt Count 76 L (130-400) K/uL Immature Gran # (Auto) 0.16 H (0.00-0.02) K/uL Neut # (Auto) 10.42 H (1.4-6.5) K/uL Lymph # (Auto) 0.56 L (1.2-3.4) K/uL [place] # (Auto) 0.62 H (0.11-0.59) K/uL Chloride 117 H (98-107) mmol/L Carbon Dioxide 18 L (21-32) mmol/L BUN 46 H (7-18) mg/dl BUN/Creatinine Ratio 40.4 H (10-20) Glucose 117 H (70-99) mg/dl Calcium 7.0 L (8.5-10.1) mg/dl Total Bilirubin 2.0 H (0.2-1) mg/dl Direct Bilirubin 1.4 H (0-0.2) mg/dl AST 68 H (15-37) U/L Alkaline Phosphatase 147 H (45-117) U/L Total Protein 5.5 L (6.4-8.2) gm/dl Albumin 1.2 L (3.4-5.0) gm/dl Globulin 4.3 H (2.5-4.0) gm/dl Albumin/Globulin Ratio 0.3 L (0.9-2) Triglycerides 151 H (0-150) mg/dl Ur Morphine (GC/MS) 2790 A (CUTOFF=50) NG/ML U Amphetamines Confirm 472 A ([id number]=866) NG/ML U Methamphetamin Confrm 1320 A ([id number]=744) NG/ML Diagnostic Findings MRI [id number] change. Otherwise negative study. Study specifically shows no evidence for an acute ischemic event. CTA neck- No significant stenosis of the carotid or vertebral basilar system is identified. Bilateral pleural effusions. Unremarkable CTA of the head CT c spine-There is no evidence of fracture or subluxation involving the cervical spine. Osteopenia and spondylotic change as above. CT C/A/P- Significantly suboptimal examination without IV contrast given the history of trauma. The examination is also degraded by streak and motion artifact There are acute fractures of the right posterior 9th and 10th ribs as detailed above. There is trace right-sided hemothorax. No pneumothorax is jaylin ntified. Airspace opacities at the right lung base likely represent atelectasis. Clinical correlation will be required. There is no evidence of solid organ injury in the abdomen or pelvis on this unenhanced examination. The right psoas muscle appears heterogeneous and expanded. This is of indeterminate significance, and could represent intramuscular hematoma, a cystic lesion or collection, or possibly a nerve sheath tumor such as neurofibroma or schwannoma. A contrast-enhanced examination may provide further information. Right-sided nephrolithiasis. Question nodularity of the hepatic surface contour. This could represent early change of cirrhosis. Splenomegaly. There is a minimal and age indeterminant superior endplate compression deformity of T3. Correlate for point tenderness. No additional findings are concerning for fracture or malalignment involving the thoracic spine. There is no evidence of fracture or malalignment involving the lumbar spine. Scattered pulmonary nodules measure up to 8 mm. These can be followed as per the Fleischner criteria. Bladder distention. xray shoulder left-No acute bony abnormality is identified. xray shoulder right-No acute bony abnormality is identified. TTE- EF >70% no ASD
[2019-02-08] MEDS ORDERED: VANCOMYCIN TROUGH ONE (15:30)
--- NOTE | 2019-02-08 16:13 | Hospitalist Progress Note ---
Date of Service February 08, 2019 Assessment & Plan (1) Drug abuse, amphetamine type: ? Possible drug withdrawal Patient more alert, awake today Denies drug abuse urine toxicology: amphetamine /Meth, Opiates Avoid sedative meds as able Left sided weakness Unclear duration of origin Likely secondary to fall-POA Brain MRI:Age-related change. Otherwise negative study. Study specifically shows no evidence for an acute ischemic event. Head CTA:Unremarkable CTA of the head. Neck CTA: No significant stenosis of the carotid or vertebral basilar system is identified. Bilateral pleural effusions. Head CT:No acute intracranial findings. MRI Neck:pending Appreciate Neurology Input PT/OT when appropriate Hepatitis C Hep C RNA load pending Plan to obtain consent for HIV test when able Denies IV drug use ECHO shows no valvular vegetation Blood cultures: Persistent bacteremia Appreciate ID Input Plan to get CESAR as able to R/O endocarditis (2) Severe sepsis with acute organ dysfunction: Severe sepsis MSSA Bacteremia UTI Source of infection: Possible Aspiration Vs UTI H/O recent fall following fractures of multiple ribs causing hemothorax Blood cultures : MSSA Urine culture: Staph aureus MSSA continue IV Rocephin as per ID Appreciate ID Input Needs CESAR as able (3) Gram positive sepsis: Appreciate ID Input Management as above (4) Fall: S/P fall from a 14 feet ladder 2 days Prior to admission, has been living in his car (van) before arrival Patient has not been eating or drinking for 2 days prior to admission Received information from patient's acquaintance who brought him to the ER Per Mr. Capellan: Patient showed up at his door approximately 3 weeks ago, reques ting to park his van in his driveway Patient told Mr. Capellan regarding a fall that occurred approximately 2 days prior to admission Patient was very confused, mumbling words, and requested to bring him to the ER CT chest shows a fracture of 9th, 10th on right side with trace hemothorax Fall precautions PT/OT as able (5) Ribs, multiple fractures: Incentive Spirometry (6) Hemothorax, traumatic: As outlined above Avoid antiplatelets anticoagulants (7) Elevated troponin: Been elevated possible type II DC: Demand ischemia in the setting of severe sepsis, acute renal failure Cardiology consulted Echo shows no wall motion abnormality Continue supportive care (8) Metabolic encephalopathy: Gradually improving Metabolic encephalopathy due to severe sepsis Continue supportive care Continue neuro checks (9) Gram-positive cocci bacteremia: as above (10) Acute renal failure (ARF): No Known H/O CKD Cr back to baseline Decrease IV fluids Avoid Nephrotoxic meds as able Monitor renal function (11) Hepatitis C antibody positive in blood: Transaminitis In setting of Sepsis, Positive Hep C LFTs improving Liver ultrasound shows evidence of cirrhosis Monitor Code Status: Full code DVT Px: SCDs Re: hemothorax Disposition: To be determined Social service consulted PT/OT when appropriate Subjective Patient is seen and examined at bedside Patient is more awake alert today States he is hungry, mouth is dry Complains of generalized pain with movement Also states having left-sided weakness Imaging studies not suggestive of CVA Discussed with neurology today Denies any chest pain, shortness of breath, and dizziness Offers no other complaints Review of Systems Review of Systems: All systems reviewed & are unremarkable except as noted in HPI & below Physical Exam Physical Exam: Physical Exam: Vitals signs as noted above General Appearance:Ill appearing, no apparent distress Head: normocephalic, Atraumatic, Dry oral mucosa Eyes: normal inspection, EOMI Neck: supple, Trachea midline Respiratory/Chest: Decreased breath sounds, CTA Cardiovascular: S1, S2, No murmur, +Tachycardia Abdomen/GI:Soft, Non tender, Bowel sounds present Extremities/Musculoskelatal:normal inspection, no edema Neurologic/Psych:AAOX3, Left sided weakness Skin: normal color, warm Results & Data Vital Signs (Past 12 Hours) Vital Signs Temp Pulse Resp BP Pulse Ox 02/08/19 15:22 36.6 C 84 20 160/95 H 96 02/08/19 12:19 37.4 C 100 H 22 152/83 H 97 Laboratory Results Short CBC 02/08/19 Range/Units 05:29 WBC 11.78 H (4.8-10.8) K/uL Hgb 11.6 L (14.0-18.0) g/dL Hct 34.7 L (42-52) % Plt Count 76 L (130-400) K/uL BMP 02/08/19 05:29 Sodium 143 Potassium 3.7 Chloride 117 H Carbon Dioxide 18 L BUN 46 H Creatinine 1.13 Glucose 117 H Calcium 7.0 L Liver Function 02/08/19 Range/Units 05:29 Total Bilirubin 2.0 H (0.2-1) mg/dl Direct Bilirubin 1.4 H (0-0.2) mg/dl AST 68 H (15-37) U/L ALT 41 (12-78) U/L Alkaline Phosphatase 147 H (45-117) U/L Albumin 1.2 L (3.4-5.0) gm/dl
--- NOTE | 2019-02-08 17:44 | Hospitalist Progress Note ---
Date of Service February 08, 2019 Subjective Around mid night last night when nursing staff was assessing the patient was found his left upper extremity was flaccid . Seen and examined the patient. Patient was able to tell his name knows name of the hospital. During this hospital stay patient was mostly confused. Not much movement on left extremities . Some movement in right extremities. sensations intact. On passive lifting of left upper extremity patient drops the extremity down with out holding. Also complains of pain. Could smile and stick his tounge out. Speech ok. No facial droop. Because of his weakness of left extremities.Stroke alert was called. Stat CT head and CTA head/neck were done which were unremarkable. Spoke with [facility] tele stroke neurology. As we don't know exact time of his well being and stat imaging studies been unremarkable and patient currently having bacteremia TPA was not recommended. Advised for full dose aspirin and allow permissive htn and follw MRI scan. Results & Data Vital Signs (Past 12 Hours) Vital Signs Temp Pulse Resp BP Pulse Ox 02/08/19 15:22 36.6 C 84 20 160/95 H 96 02/08/19 12:19 37.4 C 100 H 22 152/83 H 97
--- NOTE | 2019-02-08 23:23 | Magnetic Resonance Report ---
MR cervical spine wo con CLINICAL HISTORY: 63 years-old Male presenting with UE weakness after fall from 14 feet. TECHNIQUE: Multisequence, multiplanar MR imaging of the cervical spine was performed without the use of intravenous contrast. IV contrast: None. COMPARISON: Correlation made to CT cervical spine from 02/05/2019. FINDINGS: Localizer images: Unremarkable. Focal subtle kyphosis at C3-4. Otherwise cervical lordosis is maintained. 3 mm of retrolisthesis of C 4 on C5. Alignment is otherwise preserved. Vertebral bodies maintain normal bone marrow signal intens ity apart from trace cystic change at the anterior superior aspect of C5. Vertebral body heights main tained. Diffuse intervertebral disc desiccation with varying degrees of height loss, most severe at C 4-5 and C5-6. Multilevel facet arthropathy. Additional multilevel degenerative changes further detail below: C2-3: Trace uncovertebral hypertrophy. Mild left neural foraminal narrowing. No significant spinal ca nal narrowing. C3-4: Mild bilateral uncovertebral hypertrophy with resultant mild right and moderate left neural for aminal narrowing. Disc osteophyte complex mildly effaces the ventral thecal sac. C4-5: Disc osteophyte complex moderately effaces the ventral thecal sac. There is mild flattening of the spinal cord. Moderate right and severe left neural foraminal narrowing as a result of uncovertebr al hypertrophy. C5-6: Disc osteophyte complex moderately to severely effaces the thecal sac. Trace residual CSF. Mild flattening of the spinal cord suggested. Uncovertebral hypertrophy results in moderate to severe jeremias ateral neural foraminal narrowing. C6-7: Disc osteophyte complex moderately effaces the ventral thecal sac with mild flattening of the s arminda cord. Uncovertebral hypertrophy results in mild right and moderate left neural foraminal narrow ing. C7-T1: No significant neural foraminal or spinal canal narrowing. Cervical spinal cord flattening at C4-5 through C6-7 as mentioned above. No abnormal spinal cord sign al at these levels. Trace myelomalacia may be present at C6-7. Craniocervical junction normal. No par aspinal muscle edema. No gross evidence of an epidural collection. Remaining visualized soft tissues within normal limits. IMPRESSION: 1. Extensive multilevel degenerative changes of the cervical spine with multilevel spinal canal sten osis from C4-5 through C6-7. No convincing evidence of spinal cord impingement allowing for image effie lity. Correlate clinically. Multilevel neural foraminal narrowing most severe at C5-6 and further det juan pablo above. 2. No convincing evidence of acute osseous or ligamentous injury. Electronically signed by: Brain Barragan M.D. 02/08/2019 11:22 PM
[2019-02-09 05:49] LABS: Hematocrit (blood only) 33.4 % (42-52); Hemoglobin 11.5 g/dL (14.0-18.0); Mean Corpuscular Hemoglobin 31.3 pg (25-34); Mean Corpuscular Hgb Conc 34.4 g/dL (32-36); RDW Coefficient of Variation 14.8 % (11.5-14.5); RDW Standard Deviation 49.4 fL (36.4-46.3); Red Blood Count 3.67 M/uL (4.7-6.1); White Blood Count 15.52 K/uL (4.8-10.8)
[2019-02-09 06:15] LABS: Basophils # (auto) 0.02 K/uL (0-0.2); Basophils % (auto) 0.1 %; Dohle Bodies 1+; Immature Granulocytes # (auto) 0.12 K/uL (0.00-0.02); Immature Granulocytes % (auto) 0.8 %; Lymphocytes # (auto) 0.77 K/uL (1.2-3.4); Monocytes # (auto) 0.63 K/uL (0.11-0.59); Monocytes % (auto) 4.1 %; Neutrophils # (auto) 13.98 K/uL (1.4-6.5); Platelet Count 89 K/uL (130-400)
[2019-02-09 06:18] LABS: Albumin Level 1.2 gm/dl (3.4-5.0); Calcium 7.2 mg/dl (8.5-10.1); Est GFR (African American) 58.9; Est GFR (Non-African American) 50.8; Potassium 3.9 mmol/L (3.5-5.1)
[2019-02-09 06:23] LABS: Albumin Globulin Ratio 0.3 (0.9-2); Bilirubin,Total 1.5 mg/dl (0.2-1); Globulin 4.4 gm/dl (2.5-4.0); Total Protein 5.6 gm/dl (6.4-8.2)
[2019-02-09] MEDS ORDERED: LACTATED RINGER'S 1,000 ML IV ONE (06:56)
[2019-02-09] MEDS: CHECK CLONIDINE PATCH PLACEMENT SCH ×3 (08:27→23:55)
[2019-02-09] MEDS: ACETAMINOPHEN 1,000 MG/100 ML VIAL IV PRN ×2 (08:30→22:42)
[2019-02-09] MEDS: LORazepam 0.5 MG/1 ML VIAL IV PRN (08:30)
[2019-02-09] MEDS: ASPIRIN 81 MG ECTAB PO SCH (08:31)
[2019-02-09] MEDS: THIAMINE HCL 100 MG in SYRINGE 9 ML IV SCH (08:33)
[2019-02-09] MEDS: FOLIC ACID 1 MG in SYRINGE 9.8 ML IV SCH (08:37)
[2019-02-09] MEDS: LIDOCAINE 5% 1 PATCH TD SCH (08:37)
[2019-02-09] MEDS: LACTATED RINGER'S 1,000 ML IV SCH ×2 (10:46→23:55)
[2019-02-09 11:49] LABS: Hepatitis C Vira RNA (Log) PCR 5.16 LOG IU/ML (<1.18)
--- NOTE | 2019-02-09 12:52 | Cardiology Progress Note ---
Date of Service February 09, 2019 Assessment & Plan (1) Gram-positive cocci bacteremia: patient is not a candidate for CESAR at this time needs to be medically optimized prior to sedation no vegetations visualized on transthoracic no valvular insufficiency very low likelihood that vegetation would be present given above findings will defer medical management to primary team (2) Drug abuse, amphetamine type: (3) Closed rib fracture: (4) Acute renal failure (ARF): (5) Metabolic encephalopathy: Subjective Pt seen and examined, states that he's in extreme back pain today. Very uncomfortable. States that he also feels very dehydrated today. Denies cp, sob, palpitations, lightheadedness or dizziness. I've been asked to evaluate the patient for a CESAR. tele reviewed: sinus tachycardia without arrhythmia Review of Systems Review of Systems: All systems reviewed & are unremarkable except as noted in HPI & below Physical Exam Physical Exam: Physical Exam: General: Awake, alert and oriented x 3. No acute distress. HEENT: Normocephalic, atraumatic. Pupils equal, round and reactive to light and accommodation. Extraocular muscles are intact. Anicteric sclera. Moist mucous membranes. Neck: No JVD. No bruit. Cardiovascular: Regular but fast. No S-4. Normal S-1 and S-2. No S-3. No murmurs, rubs or gallops. Pulmonary: Clear to auscultation bilaterally. No rales, rhonchi, or wheezing. Abdomen: Bowel sounds x 4, soft. No rebound, guarding or tenderness. No organomegaly. Extremities: No clubbing, cyanosis or edema. +2 pedal pulses bilaterally. Skin: Warm and dry. Results & Data Vital Signs (Past 12 Hours) Vital Signs Temp Pulse Resp BP Pulse Ox 02/09/19 11:02 36.7 C 100 H 22 143/98 H 93 02/09/19 07:19 37.5 C 108 H 25 H 154/97 H 97 02/09/19 04:13 37.0 C 118 H 37 H 142/85 H 96 (1) Closed rib fracture Encounter type: initial encounter Laterality: right Rib fracture type: multiple ribs Qualified Code(s): S22.41XA - Multiple fractures of ribs, right side, initial encounter for closed fracture
--- NOTE | 2019-02-09 12:57 | Neurology Progress Note ---
Date of Service February 09, 2019 Assessment & Plan (1) Fall: 1. MRI brain - no evidence of stroke 2. CTA head and neck no evidence of vascular stenosis or occlusion 3. TTE- no ASD no vegatation seen 4. rib fractures- pain with movement and unwilling to move for exam 5. ID - treat UTI and blood cultures to culture 6. HEP c +- needs further work up with HIV testing 7. overall weakness- unable to determine if weakness is pain related no radiographic evidence of fracture of shoulder arm 8. MRI c spine r/o central cord injury- multiple level spinal stenosis 9. may need MRI brachial plexis at some point if left arm does not improve and EMG 10. orthopedic consult for any intervention 11. edema bilaterally UE- albumin low continue to correct slowly (2) Metabolic encephalopathy: 1. same as above (3) Sepsis secondary to UTI: 1. same as above Supervising Physician Co-Signing Physician Notes I have seen and discussed above patient with Dr Rosa Rendon, neurology. Pt MRI c spine reviewed. Severe cervical stenosis related to disc, possible abnl signal in cord. In discussing with pt he has had pos Lhermitte's for a few months and weak and tingling L arm. Exam sleepy, arousable, slow to follow commands. RUE greater than antigrav. LUE at best 2+/5. No sensory loss to LT. Intact UE reflexes, brisk in LE , no clonus, toes downgoing. Cervical myelopathy, degenerative query increase sx related to fall. Pt is stable perhaps mildly improved in LUE strength. Ortho spine evaluation. At some point an EMG LUE may be useful to determine if there is a component of a L brachial plexopathy. 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 He says he fell a couple of times from the ladder 2 days apart, was feeling a lot of generalized pain and his friend brought him to the hospital. Also complains on and off occasional cough with whitish phlegm and pain in the chest, belly and back and all over. He was also having burning micturition. He was tachycardic in the ER with some mild hypothermia and leukocytosis and ALEE and elevated lactic acid. He has several fractured ribs and UTI. His Troponin was elevated. He claims he doesn't do street drugs but is + for amphetamines, meth. He is septic with gram +cocci clusters in blood. he has been living in his care for 2 days after the fall and has not been eating or drinking. He is not forth coming with information and most of the Hpi is from chart review. denies current CP, SOB, N, V, vision changes, slurred speech, bowel or bladder issues (currently has swift catheter) +back and limb pain, does not want to move. Currently sleeping when entering room. Easily aroused. discussed MRI c spine admits to previous numbness tingling and weakness in left arm. denies current CP, SOB, N, V, vision changes, slurred speech, bowel or bladder issues (currently has swift catheter) +back and limb pain, does not want to move. Physical Exam Physical Exam: Gen: Alert NAD arouses easily to voice command lungs course breath sounds CV RRR edema bilaterally UE L>R lifts right arm against gravity left no movement bilateral LE lifts against gravity not resistance sensation intact reflexes bilaterally UE/LE 2/5 down going toes Results & Data Vital Signs (Past 12 Hours) Vital Signs Temp Pulse Resp BP Pulse Ox 02/09/19 11:02 36.7 C 100 H 22 143/98 H 93 02/09/19 07:19 37.5 C 108 H 25 H 154/97 H 97 02/09/19 04:13 37.0 C 118 H 37 H 142/85 H 96 Laboratory Results Abnormal lab results 02/05/19 02/07/19 02/09/19 Range/Units 10:20 17:58 05:27 WBC (4.8-10.8) K/uL RBC (4.7-6.1) M/uL Hgb (14.0-18.0) g/dL Hct (42-52) % RDW Std Deviation (36.4-46.3) fL RDW Coeff of Amari (11.5-14.5) % Plt Count (130-400) K/uL MPV (7.4-10.4) fL Immature Gran # (Auto) (0.00-0.02) K/uL Neut # (Auto) (1.4-6.5) K/uL Lymph # (Auto) (1.2-3.4) K/uL [place] # (Auto) (0.11-0.59) K/uL Chloride 113 H (98-107) mmol/L Carbon Dioxide 19 L (21-32) mmol/L BUN 64 H (7-18) mg/dl Creatinine 1.46 H D (0.6-1.4) mg/dl BUN/Creatinine Ratio 44.0 H (10-20) Glucose 100 H (70-99) mg/dl Calcium 7.2 L (8.5-10.1) mg/dl Total Bilirubin 1.5 H (0.2-1) mg/dl Direct Bilirubin 1.0 H (0-0.2) mg/dl AST 63 H (15-37) U/L Alkaline Phosphatase 151 H (45-117) U/L Total Protein 5.6 L (6.4-8.2) gm/dl Albumin 1.2 L (3.4-5.0) gm/dl Globulin 4.4 H (2.5-4.0) gm/dl Albumin/Globulin Ratio 0.3 L (0.9-2) Ur Morphine (GC/MS) 2790 A (CUTOFF=50) NG/ML U Amphetamines Confirm 472 A (QOKMEJ=671) NG/ML U Methamphetamin Confrm 1320 A (KEUQTB=015) NG/ML HCV RNA (PCR) IUs/ml 068853 H (<15) IU/ML HCV RNA PCR log IUs/ml 5.16 H (<1.18) LOG IU/ML 02/09/19 Range/Units 05:27 WBC 15.52 H (4.8-10.8) K/uL RBC 3.67 L (4.7-6.1) M/uL Hgb 11.5 L (14.0-18.0) g/dL Hct 33.4 L (42-52) % RDW Std Deviation 49.4 H (36.4-46.3) fL RDW Coeff of Amari 14.8 H (11.5-14.5) % Plt Count 89 L (130-400) K/uL MPV 11.0 H (7.4-10.4) fL Immature Gran # (Auto) 0.12 H (0.00-0.02) K/uL Neut # (Auto) 13.98 H (1.4-6.5) K/uL Lymph # (Auto) 0.77 L (1.2-3.4) K/uL [place] # (Auto) 0.63 H (0.11-0.59) K/uL Chloride (98-107) mmol/L Carbon Dioxide (21-32) mmol/L BUN (7-18) mg/dl Creatinine (0.6-1.4) mg/dl BUN/Creatinine Ratio (10-20) Glucose (70-99) mg/dl Calcium (8.5-10.1) mg/dl Total Bilirubin (0.2-1) mg/dl Direct Bilirubin (0-0.2) mg/dl AST (15-37) U/L Alkaline Phosphatase (45-117) U/L Total Protein (6.4-8.2) gm/dl Albumin (3.4-5.0) gm/dl Globulin (2.5-4.0) gm/dl Albumin/Globulin Ratio (0.9-2) Ur Morphine (GC/MS) (CUTOFF=50) NG/ML U Amphetamines Confirm (GNIWIK=094) NG/ML U Methamphetamin Confrm (ARPRVZ=765) NG/ML HCV RNA (PCR) IUs/ml (<15) IU/ML HCV RNA PCR log IUs/ml (<1.18) LOG IU/ML Diagnostic Findings MRI c spine-Extensive multilevel degenerative changes of the cervical spine with multilevel spinal canal stenosis from C4-5 through C6-7. No convincing evidence of spinal cord impingement allowing for image quality. Correlate clinically. Multilevel neural foraminal narrowing most severe at C5-6 and further detailed above. No convincing evidence of acute osseous or ligamentous injury.
[2019-02-09] MEDS: cefTRIAXone SODIUM 2,000 MG in DEXTROSE 5% 50 ML IV SCH (14:06)
--- NOTE | 2019-02-09 14:15 | Infectious Disease Progress Nt ---
Date of Service February 09, 2019 Assessment & Plan (1) Gram positive sepsis: will continue rocephin and repeat blood cultures. echo negative for vegetation. If continued + cultures may require MRI thoracic and lumbaar spine r/o osteo - c spine MRI no infection. urine culture also growing MSSA. Will need HCV viral load (pending) and HIV testing as well - has not been able to provide consent. for CESAR, has had negative MRI brain but ? risk of septic emboli if left sided IE, follow cultures. Subjective pt remains with MSSA sepsis 02/09 cultures pending, all previous + tolerating rocephin, had ct c spine negative, brain MRI negative. awaiting CESAR. TTE negative. wbc increased to 15 today, creat 1.4. afebrile. Results & Data Vital Signs (Past 12 Hours) Vital Signs Temp Pulse Resp BP Pulse Ox 02/09/19 11:02 36.7 C 100 H 22 143/98 H 93 02/09/19 07:19 37.5 C 108 H 25 H 154/97 H 97 02/09/19 04:13 37.0 C 118 H 37 H 142/85 H 96 Laboratory Results Microbiology 02/07/19 20:40 Sputum, Expectorated Gram Stain - Final 02/07/19 20:40 Sputum, Expectorated Sputum Culture - Final Light normal lilia. 02/08/19 10:43 Blood Aerobic Blood Culture - Preliminary Gram positive cocci clusters 02/08/19 10:43 Blood Anaerobic Blood Culture - Preliminary No growth in Anaerobic bottle after 24 hours. 02/08/19 10:43 Blood Aerobic Blood Culture - Preliminary Gram positive cocci clusters 02/08/19 10:43 Blood Anaerobic Blood Culture - Preliminary No growth in Anaerobic bottle after 24 hours. 02/07/19 15:14 Blood Aerobic Blood Culture - Preliminary Staphylococcus aureus 02/07/19 15:14 Blood Anaerobic Blood Culture - Preliminary No growth in Anaerobic bottle after 24 hours. 02/07/19 14:55 Blood Aerobic Blood Culture - Preliminary Staphylococcus aureus 02/07/19 14:55 Blood Anaerobic Blood Culture - Preliminary No growth in Anaerobic bottle after 24 hours. 02/06/19 10:46 Blood Aerobic Blood Culture - Preliminary Staphylococcus aureus 02/06/19 10:46 Blood Anaerobic Blood Culture - Preliminary No growth in Anaerobic bottle after 48 hours. 02/06/19 10:39 Blood Aerobic Blood Culture - Preliminary Staphylococcus aureus 02/06/19 10:39 Blood Anaerobic Blood Culture - Preliminary No growth in Anaerobic bottle after 48 hours. 02/05/19 02:07 Urine,Clean Catch Urine Culture - Final Staphylococcus aureus 02/05/19 03:01 Blood Aerobic Blood Culture - Final Staphylococcus aureus 02/05/19 03:01 Blood Anaerobic Blood Culture - Final 02/05/19 02:50 Blood Aerobic Blood Culture - Final Staphylococcus aureus 02/05/19 02:50 Blood Anaerobic Blood Culture - Final Staphylococcus aureus PG Care Time/CCT Total # of Minutes Spent Total Time Spent with Patient: Total time spent is greater than 50% in coordination of care (as documented) at patient's floor/unit and/or counseling patient:
--- NOTE | 2019-02-09 14:59 | Hospitalist Progress Note ---
Date of Service February 09, 2019 Assessment & Plan (1) Drug abuse, amphetamine type: ? Possible drug withdrawal Patient more alert, awake today Denies drug abuse urine toxicology: amphetamine /Meth, Opiates Avoid sedative meds as able Left sided weakness Unclear duration of origin Likely secondary to fall-POA --Brain MRI:Age-related change. Otherwise negative study. Study specifically shows no evidence for an acute ischemic event. --Head CTA:Unremarkable CTA of the head. --Neck CTA: No significant stenosis of the carotid or vertebral basilar system is identified. Bilateral pleural effusions. --Head CT:No acute intracranial findings. --MRI Neck: Extensive multilevel degenerative changes of the cervical spine with multilevel spinal canal stenosis from C4-5 through C6-7. No convincing evidence of spinal cord impingement allowing for image quality. Correlate clinically. Multilevel neural foraminal narrowing most severe at C5-6 and further detailed above. No convincing evidence of acute osseous or ligamentous injury. Appreciate Neurology Input PT/OT May need MRI brachial plexus and/or EMG Orthopedics consulted as per neurology recommendations Acute Kidney Injury Metabolic acidosis Cr: 1.46 Likely secondary to dehydration, contrast Monitor renal function Avoid nephrotoxic agents as able Continue IV fluids Consider imaging studies to rule out obstruction if no improvement Hepatitis C Hep C RNA load high HIV test: pending Denies IV drug use ECHO shows no valvular vegetation Blood cultures: Persistent bacteremia Appreciate ID Input Plan to get CESAR when medically stable for sedation to R/O endocarditis Appreciate Cardiology Input (2) Severe sepsis with acute organ dysfunction: Severe sepsis MSSA Bacteremia UTI Source of infection: Possible Aspiration Vs UTI H/O recent fall following fractures of multiple ribs causing hemothorax Blood cultures : MSSA Urine culture: Staph aureus MSSA continue IV Rocephin as per ID Appreciate ID Input Needs CESAR as able If cultures remain positive, may need spinal (Thoracic, lumbar) MRI to rule out osteo (3) Gram positive sepsis: Appreciate ID Input Management as above (4) Fall: S/P fall from a 14 feet ladder 2 days Prior to admission, has been living in his car (van) before arrival Patient has not been eating or drinking for 2 days prior to admission Received information from patient's acquaintance who brought him to the ER Per Mr. Capellan: Patient showed up at his door approximately 3 weeks ago, req uesting to park his van in his driveway Patient told Mr. Capellan regarding a fall that occurred approximately 2 days prior to admission Patient was very confused, mumbling words, and requested to bring him to the ER CT chest shows a fracture of 9th, 10th on right side with trace hemothorax Fall precautions PT/OT as able (5) Ribs, multiple fractures: Incentive Spirometry (6) Hemothorax, traumatic: As outlined above Avoid antiplatelets anticoagulants (7) Elevated troponin: Been elevated possible type II PR: Demand ischemia in the setting of severe sepsis, acute renal failure Cardiology consulted Echo shows no wall motion abnormality Continue supportive care (8) Metabolic encephalopathy: Gradually improving Metabolic encephalopathy due to severe sepsis Continue supportive care Continue neuro checks (9) Gram-positive cocci bacteremia: as above (10) Acute renal failure (ARF): No Known H/O CKD Cr back to baseline Decrease IV fluids Avoid Nephrotoxic meds as able Monitor renal function (11) Hepatitis C antibody positive in blood: Transaminitis In setting of Sepsis, Positive Hep C LFTs slowly improving Liver ultrasound shows evidence of cirrhosis Monitor Code Status: Full code DVT Px: SCDs Re: hemothorax Disposition: To be determined Social service consulted PT/OT when appropriate Subjective Patient is seen and examined at bedside More alert and awake today Continues to complain of generalized pain and weakness Currently not medically stable to get sedation for CESAR Denies any chest pain, shortness of breath, dizziness, nausea Leukocytosis worsened to 15 K Afebrile Worsening renal function likely secondary to contrast Review of Systems Review of Systems: All systems reviewed & are unremarkable except as noted in HPI & below Physical Exam Physical Exam: Physical Exam: Vitals signs as noted above General Appearance:Ill appearing, no apparent distress Head: normocephalic, Atraumatic, Dry oral mucosa Eyes: normal inspection, EOMI Neck: supple, Trachea midline Respiratory/Chest: Decreased breath sounds, CTA Cardiovascular: S1, S2, No murmur, +Tachycardia Abdomen/GI:Soft, Non tender, Bowel sounds present Extremities/Musculoskelatal:normal inspection, no edema Neurologic/Psych:AAOX3, Left sided weakness UE, able to snuff maker other extremities Skin: normal color, warm Results & Data Vital Signs (Past 12 Hours) Vital Signs Temp Pulse Resp BP Pulse Ox 02/09/19 11:02 36.7 C 100 H 22 143/98 H 93 02/09/19 07:19 37.5 C 108 H 25 H 154/97 H 97 02/09/19 04:13 37.0 C 118 H 37 H 142/85 H 96 Laboratory Results Short CBC 02/09/19 Range/Units 05:27 WBC 15.52 H (4.8-10.8) K/uL Hgb 11.5 L (14.0-18.0) g/dL Hct 33.4 L (42-52) % Plt Count 89 L (130-400) K/uL BMP 02/09/19 05:27 Sodium 139 Potassium 3.9 Chloride 113 H Carbon Dioxide 19 L BUN 64 H Creatinine 1.46 H D Glucose 100 H Calcium 7.2 L Liver Function 02/09/19 Range/Units 05:27 Total Bilirubin 1.5 H (0.2-1) mg/dl Direct Bilirubin 1.0 H (0-0.2) mg/dl AST 63 H (15-37) U/L ALT 43 (12-78) U/L Alkaline Phosphatase 151 H (45-117) U/L Albumin 1.2 L (3.4-5.0) gm/dl
[2019-02-10 07:10] LABS: Hematocrit (blood only) 33.1 % (42-52); Hemoglobin 11.5 g/dL (14.0-18.0); Mean Corpuscular Hemoglobin 31.9 pg (25-34); Mean Corpuscular Hgb Conc 34.7 g/dL (32-36); Mean Corpuscular Volume 91.7 fL (80-100); Mean Platelet Volume 10.9 fL (7.4-10.4); Platelet Count 123 K/uL (130-400); RDW Coefficient of Variation 14.8 % (11.5-14.5); RDW Standard Deviation 50.2 fL (36.4-46.3); Red Blood Count 3.61 M/uL (4.7-6.1); White Blood Count 17.51 K/uL (4.8-10.8)
[2019-02-10 07:35] LABS: Albumin Level 1.2 gm/dl (3.4-5.0); BUN Creatinine Ratio 42.7 (10-20); Bilirubin Direct 0.8 mg/dl (0-0.2); Calcium 6.9 mg/dl (8.5-10.1); Creatinine Clr Calc Pharmacy 40.9 ml/min; Est GFR (African American) 47.3; Est GFR (Non-African American) 40.8; Potassium 4.3 mmol/L (3.5-5.1)
[2019-02-10 07:38] LABS: Albumin Globulin Ratio 0.3 (0.9-2); Bilirubin,Total 1.3 mg/dl (0.2-1); Globulin 4.5 gm/dl (2.5-4.0); Total Protein 5.7 gm/dl (6.4-8.2)
[2019-02-10] MEDS: CHECK CLONIDINE PATCH PLACEMENT SCH ×2 (07:41→16:30)
[2019-02-10] MEDS: ASPIRIN 81 MG ECTAB PO SCH (07:42)
[2019-02-10] MEDS: LIDOCAINE 5% 1 PATCH TD SCH (07:42)
[2019-02-10] MEDS: THIAMINE HCL 100 MG in SYRINGE 9 ML IV SCH (07:43)
[2019-02-10] MEDS: FOLIC ACID 1 MG in SYRINGE 9.8 ML IV SCH (07:43)
--- NOTE | 2019-02-10 09:34 | Ultrasound Report ---
ULTRASOUND KIDNEYS AND BLADDER CLINICAL HISTORY: Acute renal insufficiency. COMPARISON STUDY: Abdominal CT dated 02/05/2019. TECHNIQUE: Real-time, grayscale, and color flow sonography of the kidneys and bladder is performed. I mages are reviewed in the transverse and longitudinal planes. The examination is degraded by lack of patient cooperation. The patient declined to complete the examination. FINDINGS: Kidneys: The kidneys are normal in size and demonstrate increased cortical echotexture. The right anthony rosen measures 10.5 cm in length. The left kidney appears normal in size but was incompletely imaged Th ere is no hydronephrosis. No shadowing renal calculi are identified. There is no sonographic evidence of contour deforming renal mass lesion. No perinephric fluid is identified. Bladder: The bladder is partially decompressed around a Ruby catheter. The bladder wall appears thic kened and trabeculated indicating chronic outlet obstruction. Ureteral jets were not seen. Upper abdomen: Survey images of the liver show cirrhotic liver morphology, with nodularity of the hep atic surface contour and heterogeneous echotexture. There is a small volume of perihepatic ascites as well as a small right pleural effusion. IMPRESSION: 1. The examination is degraded by lack of patient cooperation, and the patient declined to complete t he examination. Specifically, the left kidney is incompletely assessed. 2. The kidneys are normal in size and demonstrate increased cortical echotexture suggesting medical r enal disease. 3. There is no hydronephrosis. No hydronephrosis was seen by CT on 02/05/2019. 4. The bladder is partially decompressed around a Ruby catheter. The appearance of the bladder sugge sts chronic outlet obstruction. 5. Cirrhotic liver morphology noting a small volume of abdominopelvic ascites and a right pleural eff usion. Electronically signed by: Ben You M.D. 02/10/2019 9:33 AM
--- NOTE | 2019-02-10 09:50 | Infectious Disease Progress Nt ---
Date of Service February 10, 2019 Assessment & Plan (1) Gram positive sepsis: will continue rocephin and follow repeat blood cultures. echo negative for vegetation. If continued + cultures may require MRI thoracic and lumbaar spine r/o osteo - c spine MRI no infection. will require prolonged course of IV abx. may require placement for therapy as will not be able to go home with picc line with h/o IVDA, + UDS at time of admission. Subjective pt off of floor. 02/09 cultures no growth at 24 hours. discussed with jeremi bobby CESAR planned to high risk of sedation. Tolerating abx, remains on Rocephin, afebrile HIV testing negative, HCV viral load 146,000.wbc increased to 17 today. Results & Data Vital Signs (Past 12 Hours) Vital Signs Temp Pulse Pulse Resp BP Pulse Ox 02/10/19 08:38 99 H 02/10/19 07:37 36.4 C L 104 H 27 H 159/91 H 96 02/10/19 04:57 36.8 C 95 H 22 96 02/10/19 00:04 36.7 C 105 H 22 140/80 98 02/10/19 00:00 113 H Laboratory Results Microbiology 02/08/19 10:43 Blood Aerobic Blood Culture - Preliminary Staphylococcus aureus 02/08/19 10:43 Blood Anaerobic Blood Culture - Preliminary No growth in Anaerobic bottle after 24 hours. 02/08/19 10:43 Blood Aerobic Blood Culture - Preliminary Staphylococcus aureus 02/08/19 10:43 Blood Anaerobic Blood Culture - Preliminary No growth in Anaerobic bottle after 24 hours. 02/09/19 05:27 Blood Aerobic Blood Culture - Preliminary No growth in Aerobic bottle after 24 hours. 02/09/19 05:27 Blood Anaerobic Blood Culture - Preliminary No growth in Anaerobic bottle after 24 hours. 02/09/19 05:36 Blood Aerobic Blood Culture - Preliminary No growth in Aerobic bottle after 24 hours. 02/09/19 05:36 Blood Anaerobic Blood Culture - Preliminary No growth in Anaerobic bottle after 24 hours. 02/07/19 15:14 Blood Aerobic Blood Culture - Preliminary Staphylococcus aureus 02/07/19 15:14 Blood Anaerobic Blood Culture - Preliminary No growth in Anaerobic bottle after 48 hours. 02/07/19 14:55 Blood Aerobic Blood Culture - Preliminary Staphylococcus aureus 02/07/19 14:55 Blood Anaerobic Blood Culture - Preliminary No growth in Anaerobic bottle after 48 hours. 02/07/19 20:40 Sputum, Expectorated Gram Stain - Final 02/07/19 20:40 Sputum, Expectorated Sputum Culture - Final Light normal lilia. 02/06/19 10:46 Blood Aerobic Blood Culture - Preliminary Staphylococcus aureus 02/06/19 10:46 Blood Anaerobic Blood Culture - Preliminary No growth in Anaerobic bottle after 48 hours. 02/06/19 10:39 Blood Aerobic Blood Culture - Preliminary Staphylococcus aureus 02/06/19 10:39 Blood Anaerobic Blood Culture - Preliminary No growth in Anaerobic bottle after 48 hours. 02/05/19 02:07 Urine,Clean Catch Urine Culture - Final Staphylococcus aureus 02/05/19 03:01 Blood Aerobic Blood Culture - Final Staphylococcus aureus 02/05/19 03:01 Blood Anaerobic Blood Culture - Final 02/05/19 02:50 Blood Aerobic Blood Culture - Final Staphylococcus aureus 02/05/19 02:50 Blood Anaerobic Blood Culture - Final Staphylococcus aureus PG Care Time/CCT Total # of Minutes Spent Total Time Spent with Patient: Total time spent is greater than 50% in coordination of care (as documented) at patient's floor/unit and/or counseling patient:
[2019-02-10] MEDS: LACTATED RINGER'S 1,000 ML IV SCH ×2 (11:45→17:58)
--- NOTE | 2019-02-10 12:40 | Neurology Progress Note ---
Date of Service February 10, 2019 Assessment & Plan (1) Fall: 1. MRI brain - no evidence of stroke 2. CTA head and neck no evidence of vascular stenosis or occlusion 3. TTE- no ASD no vegatation seen 4. rib fractures- pain with movement and unwilling to move for exam 5. ID - treat UTI and blood cultures to culture 6. HEP c + HIV testing- negative 7. overall weakness- patient is not optimally cooperative with exam 8. MRI c spine r/o central cord injury- multiple level spinal stenosis 9. may need MRI brachial plexis at some point if left arm does not improve and EMG 10. orthopedic consult for any intervention 11. edema bilaterally UE- albumin low continue to correct slowly (2) Metabolic encephalopathy: 1. same as above (3) Sepsis secondary to UTI: 1. same as above Supervising Physician Co-Signing Physician Notes I have seen and discussed above patient with Dr John Paul Gilliam, neurology I have seen this man, reviewed his case, discussed the situation with Rosa Preston PA-C, and I reviewed his imaging studies and laboratory studies. Unfortunately his ability to cooperate with an exam is limited by his acute allergy as and while he can move his extremities in a very slow deliberate fashion my ability to elicit reflexes, perform strength testing and even a sensory examination of was extremely limited and inconsistent in terms of results. He does have apparently a long-standing left upper extremity weakness syndrome of uncertain causation and certainly on MRI scan of the cervical spine has a complex cervical spondylosis with cord compromise and a small signal yet does not have a clear-cut myelopathy on my examination and only some hyperreflexia with flexor toe signs on the prior examinations by Dr. Shannon and Rosa Preston All this occurs theoretically in the setting of a fall, trauma, and urosepsis now treated with multiple antibiotics but undoubtedly preceded by generalized malnutrition characterized below albumin and now a markedly positive hepatitis C titer suggesting that his liver function is probably due to this While he may have a cervical myelopathy I think his weakness is more explicable on the basis of a generalized toxic/metabolic disorder Orthopedics has been consulted but to date has not come by I be curious to see what they would suggest but certainly this man is not an operative candidate in his current condition I will check with him through the weekend at this point I do not think neurology has a lot more to offer MD Cha Bhatti is a 63 year old male with no PMH from [place], who 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 He says he fell a couple of times from the ladder 2 days apart, was feeling a lot of generalized pain and his friend brought him to the hospital. Also complains on and off occasional cough with whitish phlegm and pain in the chest, belly and back and all over. He was also having burning micturition. He was tachycardic in the ER with some mild hypothermia and leukocytosis and ALEE and elevated lactic acid. He has several fractured ribs and UTI. His Troponin was elevated. He claims he doesn't do street drugs but is + for amphetamines, meth. He is septic with gram +cocci clusters in blood. he has been living in his care for 2 days after the fall and has not been eating or drinking. He is not forth coming with information and most of the Hpi is from chart review. denies current CP, SOB, N, V, vision changes, slurred speech, bowel or bladder issues (currently has swift catheter) +back and limb pain, does not want to move. Currently sleeping when entering room. Easily aroused. discussed MRI c spine admits to previous numbness tingling and weakness in left arm. denies current CP, SOB, N, V, vision changes, slurred speech, bowel or bladder issues (currently has swift catheter) +back and limb pain, does not want to move. Physical Exam Physical Exam: Gen: alert with voice command PERRLA/EOMI lungs course breath sounds CV RRR moves fingers of left hand, edematous right hand 4/5 court transcriber sustains against gravity hip flex against gravity but not resistance reflexes brisk throughout down going toes bilaterally swift in place Results & Data Vital Signs (Past 12 Hours) Vital Signs Temp Pulse Pulse Resp BP Pulse Ox 02/10/19 11:44 36.7 C 114 H 29 H 143/81 H 96 02/10/19 08:38 99 H 02/10/19 07:37 36.4 C L 104 H 27 H 159/91 H 96 02/10/19 04:57 36.8 C 95 H 22 96 Laboratory Results Abnormal lab results 02/10/19 02/10/19 Range/Units 06:53 06:53 WBC 17.51 H (4.8-10.8) K/uL RBC 3.61 L (4.7-6.1) M/uL Hgb 11.5 L (14.0-18.0) g/dL Hct 33.1 L (42-52) % RDW Std Deviation 50.2 H (36.4-46.3) fL RDW Coeff of Amari 14.8 H (11.5-14.5) % Plt Count 123 L (130-400) K/uL MPV 10.9 H (7.4-10.4) fL Chloride 109 H (98-107) mmol/L Carbon Dioxide 19 L (21-32) mmol/L BUN 75 H (7-18) mg/dl Creatinine 1.75 H (0.6-1.4) mg/dl BUN/Creatinine Ratio 42.7 H (10-20) Calcium 6.9 L (8.5-10.1) mg/dl Total Bilirubin 1.3 H (0.2-1) mg/dl Direct Bilirubin 0.8 H (0-0.2) mg/dl AST 49 H (15-37) U/L Alkaline Phosphatase 133 H (45-117) U/L Total Protein 5.7 L (6.4-8.2) gm/dl Albumin 1.2 L (3.4-5.0) gm/dl Globulin 4.5 H (2.5-4.0) gm/dl Albumin/Globulin Ratio 0.3 L (0.9-2)
[2019-02-10] MEDS: ACETAMINOPHEN 1,000 MG/100 ML VIAL IV PRN (13:17)
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
[2019-02-10] MEDS: cefTRIAXone SODIUM 2,000 MG in DEXTROSE 5% 50 ML IV SCH (16:27)
--- NOTE | 2019-02-10 19:17 | Hospitalist Progress Note ---
Date of Service February 10, 2019 Assessment & Plan (1) Drug abuse, amphetamine type: ? 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 Otherwise negative study. Study specifically shows no evidence for an acute ischemic event. --Head CTA:Unremarkable CTA of the head. --Neck CTA: No significant stenosis of the carotid or vertebral basilar system is identified. Bilateral pleural effusions. --Head CT:No acute intracranial findings. --MRI Neck: Extensive multilevel degenerative changes of the cervical spine with multilevel spinal canal stenosis from C4-5 through C6-7. No convincing evidence of spinal cord impingement allowing for image quality. Correlate clinically. Multilevel neural foraminal narrowing most severe at C5-6 and further detailed above. No convincing evidence of acute osseous or ligamentous injury. Appreciate Neurology/Orthopedics Input May need cervical immobilization Not a surgical candidate currently Needs Rehab placement Acute Kidney Injury Metabolic acidosis Renal USD reviewed Cr: 1.46>>1.75 Likely secondary to dehydration, contrast, sepsis Monitor renal function Avoid nephrotoxic agents as able Continue IV fluids Hepatitis C Hep C RNA load high HIV test: Negative Denies IV drug use ECHO shows no valvular vegetation Blood cultures: Persistent bacteremia Appreciate ID Input Plan to get CESAR when medically stable for sedation to R/O endocarditis Appreciate Cardiology Input (2) Severe sepsis with acute organ dysfunction: Severe sepsis MSSA Bacteremia UTI Source of infection: Possible Aspiration Vs UTI H/O recent fall following fractures of multiple ribs causing hemothorax Blood cultures : MSSA Urine culture: Staph aureus MSSA continue IV Rocephin as per ID Appreciate ID Input Needs CESAR as able Repeat Blood Cx from 02/09--Negative to date May need PICC line placement (3) Gram positive sepsis: Appreciate ID Input Management as above (4) Fall: S/P fall from a 14 feet ladder 2 days Prior to admission, has been living in his car (van) before arrival Patient has not been eating or drinking for 2 days prior to admission Received information from patient's acquaintance who brought him to the ER Per Mr. Capellan: Patient showed up at his door approximately 3 weeks ago, requesting to park his van in his driveway Patient told Mr. Capellan regarding a fall that occurred approximately 2 days prior to admission Patient was very confused, mumbling words, and requested to bring him to the ER CT chest shows a fracture of 9th, 10th on right side with trace hemothorax Fall precautions PT/OT as able (5) Ribs, multiple fractures: Incentive Spirometry (6) Hemothorax, traumatic: As outlined above Avoid antiplatelets anticoagulants (7) Elevated troponin: Been elevated possible type II [place]: Demand ischemia in the setting of severe sepsis, acute renal failure Cardiology consulted Echo shows no wall motion abnormality Continue supportive care (8) Metabolic encephalopathy: Metabolic encephalopathy due to severe sepsis Continue supportive care Continue neuro checks Mental status improved (9) Gram-positive cocci bacteremia: as above (10) Acute renal failure (ARF): Management as above (11) Hepatitis C antibody positive in blood: Transaminitis In setting of Sepsis, Positive Hep C LFTs slowly improving Liver ultrasound shows evidence of cirrhosis Monitor Code Status: Full code DVT Px: SCDs Re: hemothorax Disposition: To be determined Social service consulted PT/OT when appropriate Subjective Patient is seen and examined at bedside Subjectively feels slightly better today Blood cultures from 02/09--no growth to date Reports generalized pain and weakness Denies any chest pain, shortness of breath, dizziness, nausea Leukocytosis worsened to 17 K Review of Systems Review of Systems: All systems reviewed & are unremarkable except as noted in HPI & below Physical Exam Physical Exam: Physical Exam: Vitals signs as noted above General Appearance:Ill appearing, no apparent distress Head: normocephalic, Atraumatic, Dry oral mucosa Eyes: normal inspection, EOMI Neck: supple, Trachea midline Respiratory/Chest: Decreased breath sounds, CTA Cardiovascular: S1, S2, No murmur, +Tachycardia Abdomen/GI:Soft, Non tender, Bowel sounds present Extremities/Musculoskelatal:normal inspection, no edema Neurologic/Psych:AAOX3, Left sided weakness UE, able to acid remover other extremities Skin: normal color, warm Results & Data Vital Signs (Past 12 Hours) Vital Signs Temp Pulse Pulse Resp BP BP Pulse Ox 02/10/19 16:00 116 H 02/10/19 15:38 37.6 C H 108 H 27 H 132/74 95 02/10/19 11:44 36.7 C 114 H 29 H 143/81 H 96 02/10/19 08:38 99 H 02/10/19 07:37 36.4 C L 104 H 27 H 159/91 H 96 Laboratory Results Short CBC 02/10/19 Range/Units 06:53 WBC 17.51 H (4.8-10.8) K/uL Hgb 11.5 L (14.0-18.0) g/dL Hct 33.1 L (42-52) % Plt Count 123 L (130-400) K/uL BMP 02/10/19 06:53 Sodium 136 Potassium 4.3 Chloride 109 H Carbon Dioxide 19 L BUN 75 H Creatinine 1.75 H Glucose 88 Calcium 6.9 L Liver Function 02/10/19 Range/Units 06:53 Total Bilirubin 1.3 H (0.2-1) mg/dl Direct Bilirubin 0.8 H (0-0.2) mg/dl AST 49 H (15-37) U/L ALT 39 (12-78) U/L Alkaline Phosphatase 133 H (45-117) U/L Albumin 1.2 L (3.4-5.0) gm/dl
[2019-02-11] MEDS: CHECK CLONIDINE PATCH PLACEMENT SCH ×3 (01:17→15:37)
[2019-02-11] MEDS: ACETAMINOPHEN 1,000 MG/100 ML VIAL IV PRN ×2 (01:32→19:50)
[2019-02-11 06:35] LABS: Hemoglobin 11.2 g/dL (14.0-18.0); Mean Corpuscular Hgb Conc 36.1 g/dL (32-36); Mean Corpuscular Volume 91.4 fL (80-100); Mean Platelet Volume 11.1 fL (7.4-10.4); Platelet Count 180 K/uL (130-400); RDW Coefficient of Variation 14.7 % (11.5-14.5); Red Blood Count 3.39 M/uL (4.7-6.1); White Blood Count 18.96 K/uL (4.8-10.8)
[2019-02-11 07:06] LABS: BUN Creatinine Ratio 44.1 (10-20); Calcium 6.7 mg/dl (8.5-10.1); Creatinine Clr Calc Pharmacy 38.1 ml/min; Est GFR (African American) 39.5; Est GFR (Non-African American) 34.1; Potassium 4.8 mmol/L (3.5-5.1)
[2019-02-11] MEDS: LIDOCAINE 5% 1 PATCH TD SCH (08:25)
[2019-02-11] MEDS: ASPIRIN 81 MG ECTAB PO SCH (08:25)
[2019-02-11] MEDS: THIAMINE HCL 100 MG in SYRINGE 9 ML IV SCH (08:28)
[2019-02-11] MEDS: FOLIC ACID 1 MG in SYRINGE 9.8 ML IV SCH (08:28)
--- NOTE | 2019-02-11 10:30 | Nephrology Consultation ---
Date of Consultation February 11, 2019 Assessment & Plan (1) Acute kidney injury: Patient with acute kidney injury likely multifactorial including ischemic ATN from sepsis and toxic ATN from contrast-induced nephropathy. It appears patient had ATN initially which was improving but a contrast load on 02/08/2019 may have exacerbated his renal injury. Ultrasound does not show obstructive uropathy. He has hepatitis C and could have glomerular nephritis although the timing of rise in renal function likely suggests contrast-induced nephropathy. We will check a urine protein. I will hold off on expensive work-up for hepatitis C associated GN and less if renal function does not improve. Patient appears volume overload. No need for IV fluids. No indication for dialysis today. Patient is nonoliguric. -Monitor renal function with daily BMP. -Avoid further nephrotoxins such as contrast and NSAIDs unless lifesaving. (2) Sepsis secondary to UTI: Due to MSSA bacteremia. Patient will continue Rocephin per infectious disease and primary team. Renally dose antibiotics for current GFR. (3) Hepatitis C antibody positive in blood: Patient with hep C infection. 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 Will check urine protein. I will hold off on other work-up for GN for now given high suspicion for contrast-induced nephropathy. Patient will need treatment for his hep C although this can be done as an outpatient. History of Present Illness Reason for Consultation: Acute kidney injury Requesting Physician: Norris Jolley MD Attending Physician: Norris Jolley MD History of Present Illness This is a 63-year-old male from [place] who was here visiting a friend to help with work on the barn when he fell off a ladder and sustained multiple rib fractures. He was admitted on 02/05/2019 with acute kidney injury, MSSA bacteremia and metabolic encephalopathy. He had a creatinine of 2.2 on admission which improved to a kaelyn of 1.1 on 02/08/2019. He had CTA of head and neck on the same day and his creatinine started to rise the following day at 1.4 and now up to 2 today. He remains quite sick. He is complaining of severe pain due to rib fractures. He continues Rocephin for bacteremia. He has hepatitis C viremia. He was also positive for methamphetamines despite denying drug abuse. He denies shortness of breath. Urine output was 550 mm. Will been asked to evaluate him for etiology and management of his acute kidney injury. Allergies Allergy/AdvReac Type Severity Reaction Status Date / Time Penicillins Allergy Unknown UNKNOWN Verified 02/05/19 01:02 Home Medications Home Medications Medication Instructions Recorded Confirmed Type ascorbic acid (vitamin C) [Vitamin 1 g PO DAILY 02/05/19 02/05/19 History C] multivitamin 1 tab PO DAILY 02/05/19 02/05/19 History naproxen sodium [Aleve] 220 mg PO DIRECTED PRN 02/05/19 02/05/19 History oxycodone-acetaminophen [Percocet] 1 - 2 tab PO DIRECTED PRN 02/05/19 02/05/19 History vitamin B complex 1 tab PO DAILY 02/05/19 02/05/19 History Patient History Medical History No known health problems Social History Preferred Language: Ukrainian Communication Ability: Impaired Economic History Teacher Required: No Beliefs That Will Affect Care: None Current Living Situation: Homeless Current Living Situation Comment: Patient lives in his van Other Information That Helps Us Care for You: No Feels Safe at Home: Yes Safety Concerns: Feels Safe At This Time Smoking Status: Never smoker Hx Alcohol Use: No Hx Substance Use: No Review of Systems Review of Systems: All systems reviewed & are unremarkable except as noted in HPI & below Physical Exam Physical Exam: General exam: Appears comfortable, no acute distress HEENT: Pupils are equal and reactive to light Neck: Has a white collar. Difficult to examine the neck Respiratory system: Tenderness on the chest, clear breath sounds bilaterally. Gastrointestinal: Abdomen is soft, non distended, non tender, bowel sounds are present CVS: Regular rate and rhythm. No murmurs, rubs or gallops Musculoskeletal: No joint or muscle tenderness Extremities: Non tender, 2+ edema, peripheral pulses are present Neuro: Oriented, no tremors, global weakness Skin: No rashes Results & Data Vital Signs (Past 12 Hours) Vital Signs Temp Pulse Pulse Resp BP BP Pulse Ox 02/11/19 07:10 37.0 C 107 H 26 H 140/86 96 02/11/19 02:16 36.9 C 121 H 18 144/82 H 95 02/11/19 00:00 36.9 C 123 H 30 H 161/104 H 156/95 H 97 Laboratory Results Laboratory Results - last 24 hr 02/11/19 02/11/19 06:00 06:00 WBC 18.96 H RBC 3.39 L Hgb 11.2 L Hct 31.0 L MCV 91.4 MCH 33.0 MCHC 36.1 H RDW Std Deviation 49.0 H RDW Coeff of Amari 14.7 H Plt Count 180 MPV 11.1 H Sodium 133 L Potassium 4.8 Chloride 107 Carbon Dioxide 19 L Anion Gap 7.0 BUN 90 H Creatinine 2.03 H Est Cr Clr Drug Dosing 38.1 Est GFR ( Amer) 39.5 Est GFR (Non-Af Amer) 34.1 BUN/Creatinine Ratio 44.1 H Glucose 91 Calcium 6.7 L
--- NOTE | 2019-02-11 11:08 | Communication Note ---
Date of Service: February 11, 2019 encounter created in error see the correct encounter for this date John Paul Gilliam MD
--- NOTE | 2019-02-11 11:13 | Communication Note ---
Date of Service: February 11, 2019 I saw Mr. Calvin today. He is more interactive but still is a little evasive and imprecise as a historian and does not cooperate fully with examination He states now that his left arm became dysfunctional after he fell from a ladder and insists that the arm was somehow struck yet I see no signs of trauma and on passive movements there is no real pain He can flex the fingers on the left side and is flicker of left biceps function and sensory examinations intact so one wonders if this is still part of a volitional disuse or potentially a brachial plexopathy of traumatic type. Only time will tell in this regard unfortunately The rest of his examination is improving particularly the right arm which he now can raise slightly up to the shoulder level in all muscle groups are functioning albeit with a slow fashion and sensations intact. In the lower extremities he does plantar flex dorsiflex and there is a flicker of proximal function today which was not present yesterday. Toe signs are indeterminant as there is quite a bit of withdrawal but I think they are not clearly extensor and again signs of a myelopathy are minimal here despite the findings of his cervical spine MRI which shows compromise of the cervical canal. I thought I saw cord signal of the other day but Dr. Multani and radiologist reviewed it and do not feel this is present. They have noted a prevertebral hematoma which of course is not playing a role in his weakness but is something that needs observe and his cervical spine is being stabilized because of At this point he still has a number of metabolic issues and is being treated for sepsis and clearly is malnourished with a lot of peripheral edema related to his low albumin and probably his renal failure as well A recommendation for rehabilitation medicine has been made but this could wait till next week Neurology is going to take a look at him again on Wednesday and will continue to make periodic visits to the bedside but at this point I do not think we have a lot more to offer Dr. Young as mentioned the possibility of a central cervical cord syndrome which has not been demonstrable yet by imaging and we may end up doing a repeat cervical MRI and may even do a MRI of the brachial plexus if the weakness in the left arm continues but these decisions are something that can be made next week once his medical condition and kidney function stabilize and improve a little more John Paul Gilliam MD
[2019-02-11] MEDS: cefTRIAXone SODIUM 2,000 MG in DEXTROSE 5% 50 ML IV SCH (15:37)
--- NOTE | 2019-02-11 16:00 | Hospitalist Progress Note ---
Date of Service February 11, 2019 Assessment & Plan (1) Drug abuse, amphetamine type: ? 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 Otherwise negative study. Study specifically shows no evidence for an acute ischemic event. --Head CTA:Unremarkable CTA of the head. --Neck CTA: No significant stenosis of the carotid or vertebral basilar system is identified. Bilateral pleural effusions. --Head CT:No acute intracranial findings. --MRI Neck: Extensive multilevel degenerative changes of the cervical spine with multilevel spinal canal stenosis from C4-5 through C6-7. No convincing evidence of spinal cord impingement allowing for image quality. Correlate clinically. Multilevel neural foraminal narrowing most severe at C5-6 and further detailed above. No convincing evidence of acute osseous or ligamentous injury. Appreciate Neurology/Orthopedics Input Continue cervical immobilization Not a surgical candidate currently Needs Rehab placement Acute Kidney Injury: Likely ATN due to sepsis, Contrast induced Metabolic acidosis Renal USD reviewed Cr: 1.46>>1.75>>2.03 Monitor renal function Avoid nephrotoxic agents as able Received IV fluids Appreciate Nephrology Input Urine Protein/Cr pending Hepatitis C Hep C RNA load high HIV test: Negative Denies IV drug use ECHO shows no valvular vegetation Blood cultures: Persistent bacteremia Appreciate ID Input Plan to get CESAR when medically stable for sedation to R/O endocarditis Appreciate Cardiology Input (2) Severe sepsis with acute organ dysfunction: Severe sepsis MSSA Bacteremia UTI Source of infection: Possible Aspiration Vs UTI H/O recent fall following fractures of multiple ribs causing hemothorax Blood cultures : MSSA Urine culture: Staph aureus MSSA continue IV Rocephin as per ID Appreciate ID Input Needs CESAR as able Repeat Blood Cx from 02/09--06/01: Gram-positive cocci clusters May need PICC line placement Persistent leukocytosis Plan to repeat lactate, procalcitonin, chest x-ray in a.m. MRI thoracic, lumbar spine oredered (3) Gram positive sepsis: Appreciate ID Input Management as above (4) Fall: S/P fall from a 14 feet ladder 2 days Prior to admission, has been living in his car (van) before arrival Patient has not been eating or drinking for 2 days prior to admission Received information from patient's acquaintance who brought him to the ER Per Mr. Capellan: Patient showed up at his door approximately 3 weeks ago, requesting to park his van in his driveway Patient told Mr. Capellan regarding a fall that occurred approximately 2 days prior to admission Patient was very confused, mumbling words, and requested to bring him to the ER CT chest shows a fracture of 9th, 10th on right side with trace hemothorax Incentive spirometry Fall precautions PT/OT as able (5) Ribs, multiple fractures: Incentive Spirometry (6) Hemothorax, traumatic: As outlined above Avoid antiplatelets anticoagulants (7) Elevated troponin: Been elevated possible type II [place]: Demand ischemia in the setting of severe sepsis, acute renal failure Cardiology consulted Echo shows no wall motion abnormality Continue supportive care (8) Metabolic encephalopathy: Metabolic encephalopathy due to severe sepsis Continue supportive care Continue neuro checks Mental status improved (9) Gram-positive cocci bacteremia: as above (10) Acute renal failure (ARF): Management as above (11) Hepatitis C antibody positive in blood: Transaminitis In setting of Sepsis, Positive Hep C LFTs slowly improved Liver ultrasound shows evidence of cirrhosis Monitor Code Status: Full code DVT Px: SCDs Re: hemothorax Disposition: To be determined Social service consulted PT/OT when appropriate Subjective Patient is seen and examined at bedside No new complaints Persistent leukocytosis Patient prefers to defer spinal imaging today Feels slightly better today Patient was able to move his left upper extremity better today Denies any chest pain, shortness of breath, dizziness, nausea Review of Systems Review of Systems: All systems reviewed & are unremarkable except as noted in HPI & below Physical Exam Physical Exam: Physical Exam: Vitals signs as noted above General Appearance:Ill appearing, no apparent distress Head: normocephalic, Atraumatic, Dry oral mucosa Eyes: normal inspection, EOMI Neck: supple, Trachea midline Respiratory/Chest: Decreased breath sounds, CTA Cardiovascular: S1, S2, No murmur, +Tachycardia Abdomen/GI:Soft, Non tender, Bowel sounds present Extremities/Musculoskelatal:normal inspection, no edema Neurologic/Psych:AAOX3, Left sided weakness UE, able to car mover other extremities Skin: normal color, warm Results & Data Vital Signs (Past 12 Hours) Vital Signs Temp Pulse Pulse Resp BP Pulse Ox 02/11/19 15:33 36.9 C 118 H 18 159/93 H 97 02/11/19 12:40 107 H 02/11/19 11:28 37.1 C 104 H 18 156/84 H 97 02/11/19 07:10 37.0 C 107 H 26 H 140/86 96 Laboratory Results Short CBC 02/11/19 Range/Units 06:00 WBC 18.96 H (4.8-10.8) K/uL Hgb 11.2 L (14.0-18.0) g/dL Hct 31.0 L (42-52) % Plt Count 180 (130-400) K/uL BMP 02/11/19 06:00 Sodium 133 L Potassium 4.8 Chloride 107 Carbon Dioxide 19 L BUN 90 H Creatinine 2.03 H Glucose 91 Calcium 6.7 L
[2019-02-11 16:13] LABS: Appearance Urine Cloudy (Clear); Bacteria Urine Automated Negative (Negative); Bilirubin Urine Negative (Negative); Blood Urine 3+ (Negative); Color Urine Orange; Glucose Urine UA Negative (Negative); Ketones Urine Negative (Negative); Leukocyte Esterase Urine 1+ (Negative); Nitrite Urine Negative (Negative); Protein Urine 1+ (Negative); Specific Gravity Urine 1.024 (1.000-1.030); Urobilinogen Urine Negative (Negative)
[2019-02-11 16:29] LABS: RBC Urine Automated >30 /hpf (0-4)
[2019-02-11 16:44] LABS: Creatinine Urine Random 88.8 mg/dl; Protein Creatinine Ratio Urine 1.2 (0-0.2); Total Protein Urine Random 105.3 mg/dl (0-11.9)
[2019-02-11] MEDS: LORazepam 0.5 MG/1 ML VIAL IV PRN (23:40)
[2019-02-12] MEDS: CHECK CLONIDINE PATCH PLACEMENT SCH ×3 (03:47→16:37)
[2019-02-12 07:02] LABS: Hematocrit (blood only) 32.6 % (42-52); Hemoglobin 11.3 g/dL (14.0-18.0); Mean Corpuscular Hemoglobin 31.8 pg (25-34); Mean Corpuscular Hgb Conc 34.7 g/dL (32-36); Mean Corpuscular Volume 91.8 fL (80-100); Mean Platelet Volume 10.3 fL (7.4-10.4); Platelet Count 242 K/uL (130-400); RDW Coefficient of Variation 14.7 % (11.5-14.5); RDW Standard Deviation 49.5 fL (36.4-46.3); Red Blood Count 3.55 M/uL (4.7-6.1); White Blood Count 19.57 K/uL (4.8-10.8)
--- NOTE | 2019-02-12 07:11 | XRay Report ---
XR chest 1V portable CLINICAL HISTORY: sepsis COMPARISON STUDY: Chest CT and chest radiograph February 05, 2019. FINDINGS: Several right-sided rib fractures are better depicted on prior chest CT. There is no pneumo thorax. There has been interval development of suspected pulmonary edema with bilateral pleural effus ions and bibasilar opacities. Cardiomediastinal silhouette is stable. IMPRESSION: 1. Interval development of suspected pulmonary edema. 2. Interval increase in bilateral pleural effusions, right larger than left. Increase in bibasilar o pacities which may reflect pneumonia or atelectasis. 3. Redemonstration of several acute right-sided rib fractures. No pneumothorax. A right hemothorax wo uld be difficult to exclude although the pleural effusion is more likely related to pulmonary edema. Electronically signed by: Sam Worrell M.D. 02/12/2019 7:10 AM
[2019-02-12 07:32] LABS: BUN Creatinine Ratio 46.7 (10-20); Calcium 7.2 mg/dl (8.5-10.1); Creatinine Clr Calc Pharmacy 39.8 ml/min; Est GFR (African American) 41.5; Est GFR (Non-African American) 35.8; Potassium 5.4 mmol/L (3.5-5.1)
[2019-02-12] MEDS ORDERED: FUROSEMIDE 20 MG in SYRINGE 0 ML IV ONE ×2 (08:00→14:45)
[2019-02-12] MEDS: ASPIRIN 81 MG ECTAB PO SCH (08:32)
[2019-02-12] MEDS: FOLIC ACID 1 MG in SYRINGE 9.8 ML IV SCH (08:32)
[2019-02-12] MEDS: THIAMINE HCL 100 MG in SYRINGE 9 ML IV SCH (08:32)
[2019-02-12] MEDS: LIDOCAINE 5% 1 PATCH TD SCH (08:32)
[2019-02-12] MEDS: DOXYCYCLINE HYCLATE 100 MG CAP PO SCH (08:35)
[2019-02-12] MEDS: ACETAMINOPHEN 1,000 MG/100 ML VIAL IV PRN (08:35)
[2019-02-12] MEDS: LORazepam 0.5 MG/1 ML VIAL IV PRN (10:52)
[2019-02-12 13:32] LABS: BUN Creatinine Ratio 53.3 (10-20); Calcium 6.8 mg/dl (8.5-10.1); Creatinine Clr Calc Pharmacy 39.8 ml/min; Est GFR (African American) 41.5; Est GFR (Non-African American) 35.8; Potassium 5.8 mmol/L (3.5-5.1)
[2019-02-12] MEDS ORDERED: SODIUM POLYSTYRENE SULFONATE 15G/60ML SUSP PO STA (14:02)
[2019-02-12] MEDS ORDERED: CALCIUM GLUCONATE 10% 1,000 MG in SODIUM CHLORIDE 0.9% 50 ML IV STA (14:06)
--- NOTE | 2019-02-12 14:49 | Hospitalist Progress Note ---
Date of Service February 12, 2019 Assessment & Plan (1) Drug abuse, amphetamine type: ? 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 Otherwise negative study. Study specifically shows no evidence for an acute ischemic event. --Head CTA:Unremarkable CTA of the head. --Neck CTA: No significant stenosis of the carotid or vertebral basilar system is identified. Bilateral pleural effusions. --Head CT:No acute intracranial findings. --MRI Neck: Extensive multilevel degenerative changes of the cervical spine with multilevel spinal canal stenosis from C4-5 through C6-7. No convincing evidence of spinal cord impingement allowing for image quality. Correlate clinically. Multilevel neural foraminal narrowing most severe at C5-6 and further detailed above. No convincing evidence of acute osseous or ligamentous injury. Appreciate Neurology/Orthopedics Input Continue cervical immobilization Not a surgical candidate currently Needs Rehab placement Acute Kidney Injury: Likely ATN due to sepsis, Contrast induced Metabolic acidosis Renal USD reviewed Cr: 1.46>>1.75>>2.03>>1.95 Monitor renal function Avoid nephrotoxic agents as able Received IV fluids Appreciate Nephrology Input Hyperkalemia Likely due to renal Insufficiency Given 1 dose of lasix 20mg Calcium gluconate given Avoid Potassium supplements monitor BMP Hepatitis C Hep C RNA load high HIV test: Negative Denies IV drug use ECHO shows no valvular vegetation Blood cultures: Persistent bacteremia Appreciate ID Input Plan to get CESAR when medically stable for sedation to R/O endocarditis Appreciate Cardiology Input (2) Severe sepsis with acute organ dysfunction: Severe sepsis MSSA Bacteremia UTI Possible Pneumonia Source of infection: Possible Aspiration Vs UTI H/O recent fall following fractures of multiple ribs causing hemothorax Blood cultures : MSSA Urine culture: Staph aureus MSSA continue IV Rocephin as per ID Appreciate ID Input Needs CESAR as able Repeat Blood Cx from 02/09--06/01: [email or web address].aureus May need PICC line placement Persistent leukocytosis, elevated procalcitonin MRI thoracic, lumbar spine: pending Will broaden Abx Spectrum:: Add Doxycycline, Azactam Hematoma likely contributing to fever, leukocytosis (3) Gram positive sepsis: Appreciate ID Input Management as above (4) Fall: S/P fall from a 14 feet ladder 2 days Prior to admission, has been living in his car (van) before arrival Patient has not been eating or drinking for 2 days prior to admission Received information from patient's acquaintance who brought him to the ER Per Mr. Capellan: Patient showed up at his door approximately 3 weeks ago, requesting to park his van in his driveway Patient told Mr. Capellan regarding a fall that occurred approximately 2 days prior to admission Patient was very confused, mumbling words, and requested to bring him to the ER CT chest shows a fracture of 9th, 10th on right side with trace hemothorax Incentive spirometry Fall precautions PT/OT as able (5) Ribs, multiple fractures: Incentive Spirometry (6) Hemothorax, traumatic: As outlined above Avoid antiplatelets anticoagulants (7) Elevated troponin: Been elevated possible type II [place]: Demand ischemia in the setting of severe sepsis, acute renal failure Cardiology consulted Echo shows no wall motion abnormality Continue supportive care (8) Metabolic encephalopathy: Metabolic encephalopathy due to severe sepsis Continue supportive care Continue neuro checks Mental status improved (9) Gram-positive cocci bacteremia: as above (10) Acute renal failure (ARF): Management as above (11) Hepatitis C antibody positive in blood: Transaminitis In setting of Sepsis, Positive Hep C LFTs slowly improved Liver ultrasound shows evidence of cirrhosis Monitor Code Status: Full code DVT Px: SCDs Re: hemothorax Disposition: To be determined Social service consulted PT/OT when appropriate Subjective Patient is seen and examined at bedside Leukocytosis continues to worsen No new complaints Has significant generalized weakness Febrile today Feels very tired Also noted Hyperkalemia Denies any chest pain, shortness of breath, dizziness, nausea Review of Systems Review of Systems: All systems reviewed & are unremarkable except as noted in HPI & below Physical Exam Physical Exam: Physical Exam: Vitals signs as noted above General Appearance:Ill appearing, no apparent distress Head: normocephalic, Atraumatic, Dry oral mucosa Eyes: normal inspection, EOMI Neck: supple, Trachea midline Respiratory/Chest: Decreased breath sounds, CTA Cardiovascular: S1, S2, No murmur, +Tachycardia Abdomen/GI:Soft, Non tender, Bowel sounds present Extremities/Musculoskelatal:normal inspection, no edema Neurologic/Psych:AAOX3, Left sided weakness UE, 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 Skin: normal color, warm Results & Data Vital Signs (Past 12 Hours) Vital Signs Temp Pulse Pulse Pulse Resp BP BP 02/12/19 11:14 37.8 C H 107 H 24 140/79 02/12/19 09:00 113 H 02/12/19 07:35 37.6 C H 117 H 25 H 156/86 H 02/12/19 03:40 36.9 C 103 H 16 155/87 H Pulse Ox 02/12/19 11:14 96 02/12/19 09:00 02/12/19 07:35 94 02/12/19 03:40 96 Laboratory Results Short CBC 02/12/19 Range/Units 06:51 WBC 19.57 H (4.8-10.8) K/uL Hgb 11.3 L (14.0-18.0) g/dL Hct 32.6 L (42-52) % Plt Count 242 (130-400) K/uL BMP 02/12/19 02/12/19 06:51 12:55 Sodium 133 L 134 L Potassium 5.4 H 5.8 H Chloride 107 106 Carbon Dioxide 19 L 18 L BUN 91 H 104 H Creatinine 1.95 H 1.95 H Glucose 88 91 Calcium 7.2 L 6.8 L Urine 02/11/19 Range/Units 15:41 Urine Color [place] Urine Appearance Cloudy A (Clear) Urine pH 5.0 (4.5-7.5) Ur Specific [place] 1.024 (1.000-1.030) Urine Protein 1+ H (Negative) Urine Glucose (UA) Negative (Negative)
[2019-02-12] MEDS ORDERED: CONSULT PHARMACY STA ×2 (14:56→15:15)
[2019-02-12] MEDS ORDERED: AZTREONAM CONSULT ACTIVE PRN (15:30)
[2019-02-12] MEDS ORDERED: AZTREONAM 2,000 MG in DEXTROSE 5% 100 ML IV SCH (16:00)
[2019-02-12] MEDS ORDERED: metroNIDAZOLE 500 MG/100 ML BAG IV SCH (16:00)
[2019-02-12] MEDS ORDERED: cefTRIAXone SODIUM 2,000 MG in DEXTROSE 5% 50 ML IV SCH (16:00)
--- NOTE | 2019-02-12 16:15 | Nephrology Progress Note ---
Date of Service February 12, 2019 Assessment & Plan (1) Acute kidney injury: Patient with acute kidney injury likely multifactorial including ischemic ATN from sepsis and toxic ATN from contrast-induced nephropathy. It appears patient had ATN initially which was improving but a contrast load on 02/08/2019 may have exacerbated his renal injury. Ultrasound does not show obstructive uropathy. He has hepatitis C and could have glomerular nephritis although the timing of rise in renal function likely suggests contrast-induced nephropathy. Patient is grossly volume overload complicated by hypoalbuminemia. He has hyperkalemia 5.8 and metabolic acidosis today. No indication for dialysis today. Patient is nonoliguric. -IV Lasix 30 mg 3 times daily. Please give Lasix together with albumin 25 g 3 times daily to help with diuresis and kaliuresis -Monitor renal function with daily BMP. -Avoid further nephrotoxins such as contrast and NSAIDs unless lifesaving. -Patient remains acutely ill and requires higher level of care possibly ICU (2) Sepsis secondary to UTI: Due to MSSA bacteremia. Patient will continue Rocephin per infectious disease and primary team. Renally dose antibiotics for current GFR. (3) Hepatitis C antibody positive in blood: Patient with hep C infection. 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 Will check urine protein. I will hold off on other work-up for GN for now given high suspicion for contrast-induced nephropathy. Patient will need treatment for his hep C although this can be done as an outpatient. (4) Hypoalbuminemia due to protein-calorie malnutrition: Patient with an adequate intake. He needs an NG tube and tube feeds. Consider Nepro starting at 30 mL/h with a target of 8 mL/h. Subjective Patient seen in follow-up for acute kidney injury and volume overload. He remains quite sick with leukocytosis, metabolic acidosis, hyperkalemia and worsening renal function. He has poor p.o. intake and profoundly hypoalbuminemic. He is intermittently confused. He feels thirsty. He is denying shortness of breath. He has severe chest pain from the rib fractures. He is also complaining of pain in the legs. Has left-sided weakness. Review of Systems Review of Systems: All systems reviewed & are unremarkable except as noted in HPI & below Physical Exam Physical Exam: General exam: Appears comfortable, no acute distress HEENT: Pupils are equal and reactive to light Neck: Has a neck collar Respiratory system: Reduced breath sounds bilaterally. Gastrointestinal: Abdomen is soft, non distended, non tender, bowel sounds are present CVS: Tachycardia. No murmurs, rubs or gallops Musculoskeletal: Chest wall tenderness Extremities: Non tender, 3+ edema, peripheral pulses are present Neuro: Oriented, no tremors, left-sided weakness Skin: No rashes Results & Data Vital Signs (Past 12 Hours) Vital Signs Temp Pulse Pulse Resp BP BP Pulse Ox 02/12/19 15:25 36.4 C L 107 H 23 133/74 96 02/12/19 11:14 37.8 C H 107 H 24 140/79 96 02/12/19 09:00 113 H 02/12/19 07:35 37.6 C H 117 H 25 H 156/86 H 94 Laboratory Results Laboratory Results - last 24 hr 02/11/19 02/11/19 02/12/19 15:41 15:41 06:51 WBC 19.57 H RBC 3.55 L Hgb 11.3 L Hct 32.6 L MCV 91.8 MCH 31.8 MCHC 34.7 RDW Std Deviation 49.5 H RDW Coeff of Amari 14.7 H Plt Count 242 MPV 10.3 Sodium Potassium Chloride Carbon Dioxide Anion Gap BUN Creatinine Est Cr Clr Drug Dosing Est GFR ( Amer) Est GFR (Non-Af Amer) BUN/Creatinine Ratio Glucose Lactate Calcium Procalcitonin Urine Color [place] Urine Appearance Cloudy A Urine pH 5.0 Ur Specific [place] 1.024 Urine Protein 1+ H Urine Glucose (UA) Negative Urine Ketones Negative Urine Blood 3+ H Urine Nitrite Negative Urine Bilirubin Negative Urine Urobilinogen Negative Ur Leukocyte Esterase 1+ H Urine WBC (Auto) 10-30 H Urine RBC (Auto) >30 H U Hyaline Cast (Auto) 5-10 H U Epithel Cells (Auto) 5-10 H Urine Bacteria (Auto) Negative Urine Yeast Not Reportable Ur Random Creatinine 88.8 U Random Total Protein 105.3 H Protein/Creatinin Ratio 1.2 H 02/12/19 02/12/19 02/12/19 06:51 06:51 06:51 WBC RBC Hgb Hct MCV MCH MCHC RDW Std Deviation RDW Coeff of Amari Plt Count MPV Sodium 133 L Potassium 5.4 H Chloride 107 Carbon Dioxide 19 L Anion Gap 8.0 BUN 91 H Creatinine 1.95 H Est Cr Clr Drug Dosing 39.8 Est GFR ( Amer) 41.5 Est GFR (Non-Af Amer) 35.8 BUN/Creatinine Ratio 46.7 H Glucose 88 Lactate 1.2 Calcium 7.2 L Procalcitonin 1.00 H Urine Color Urine Appearance Urine pH Ur Specific [place] Urine Protein Urine Glucose (UA) Urine Ketones Urine Blood Urine Nitrite Urine Bilirubin Urine Urobilinogen Ur Leukocyte Esterase Urine WBC (Auto) Urine RBC (Auto) U Hyaline Cast (Auto) U Epithel Cells (Auto) Urine Bacteria (Auto) Urine Yeast Ur Random Creatinine U Random Total Protein Protein/Creatinin Ratio 02/12/19 12:55 WBC RBC Hgb Hct MCV MCH MCHC RDW Std Deviation RDW Coeff of Amari Plt Count MPV Sodium 134 L Potassium 5.8 H Chloride 106 Carbon Dioxide 18 L Anion Gap 10.0 BUN 104 H Creatinine 1.95 H Est Cr Clr Drug Dosing 39.8 Est GFR ( Amer) 41.5 Est GFR (Non-Af Amer) 35.8 BUN/Creatinine Ratio 53.3 H Glucose 91 Lactate Calcium 6.8 L Procalcitonin Urine Color Urine Appearance Urine pH Ur Specific [place] Urine Protein Urine Glucose (UA) Urine Ketones Urine Blood Urine Nitrite Urine Bilirubin Urine Urobilinogen Ur Leukocyte Esterase Urine WBC (Auto) Urine RBC (Auto) U Hyaline Cast (Auto) U Epithel Cells (Auto) Urine Bacteria (Auto) Urine Yeast Ur Random Creatinine U Random Total Protein Protein/Creatinin Ratio
[2019-02-12] MEDS: ALBUMIN 25% IV SCH ×2 (16:44→17:17)
[2019-02-12] MEDS: FUROSEMIDE IV SCH ×2 (16:44→17:17)
[2019-02-12 18:15] LABS: Hematocrit (blood only) 28.1 % (42-52); Hemoglobin 9.4 g/dL (14.0-18.0); Mean Corpuscular Hemoglobin 30.9 pg (25-34); Mean Corpuscular Hgb Conc 33.5 g/dL (32-36); Mean Corpuscular Volume 92.4 fL (80-100); Mean Platelet Volume 10.1 fL (7.4-10.4); Platelet Count 231 K/uL (130-400); RDW Coefficient of Variation 14.7 % (11.5-14.5); RDW Standard Deviation 49.6 fL (36.4-46.3); Red Blood Count 3.04 M/uL (4.7-6.1); White Blood Count 13.76 K/uL (4.8-10.8)
[2019-02-12] MEDS ORDERED: RAPID SEQUENCE INDUCTION BAG ONE (18:19)
[2019-02-12 18:31] LABS: BUN Creatinine Ratio 53.8 (10-20); Calcium 7.4 mg/dl (8.5-10.1); Creatinine Clr Calc Pharmacy 40.9 ml/min; Est GFR (African American) 42.8; Potassium 5.3 mmol/L (3.5-5.1)
[2019-02-12] MEDS ORDERED: fentaNYL citrate 100 MCG/2 ML VIAL IV PRN (18:32)
[2019-02-12] MEDS ORDERED: PROPOFOL 1,000 MG/100 ML VIAL IV STA (18:32)
[2019-02-12] MEDS ORDERED: ETOMIDATE 2 MG/ML 20 ML VIAL IV ONE (18:35)
[2019-02-12 18:41] LABS: Basophils # (auto) 0.01 K/uL (0-0.2); Basophils % (auto) 0.1 %; Dohle Bodies 1+; Echinocytes 2+; Immature Granulocytes # (auto) 0.06 K/uL (0.00-0.02); Immature Granulocytes % (auto) 0.4 %; Lymphocytes # (auto) 0.72 K/uL (1.2-3.4); Lymphocytes % (auto) 5.2 %; Monocytes # (auto) 0.68 K/uL (0.11-0.59); Monocytes % (auto) 4.9 %; Neutrophils # (auto) 12.29 K/uL (1.4-6.5); Neutrophils % (auto) 89.4 %; Tear Drop Cells Occasional; Toxic Granulation 1+; Toxic Vacuolation 1+
[2019-02-12] MEDS ORDERED: VECURONIUM BROMIDE 10 MG VIAL IV STA (19:06)
[2019-02-12] MEDS ORDERED: LIDOCAINE HCL 1% 20 ML VIAL ONE (19:20)
[2019-02-12 19:47] LABS: Fibrinogen 315 mg/dl (184-400); INR 1.3 (0.9-1.1); Partial Thromboplastin Ratio 1.1; Partial Thromboplastin Time 29.1 Seconds (21.0-31.0)
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
--- NOTE | 2019-02-12 20:40 | Procedure Note ---
Procedure Note Date of Service February 12, 2019 Procedure Date: Noted above Procedure: Endotracheal intubation Pre-procedure Diagnosis: Impending respiratory failure, decrease negative inspiratory force concern for worsening weakness Post-procedure Diagnosis: same as above Prior to Procedure: Informed Consent: Two-physician consent with Dr. Jolley Attending Staff: Charmaine Rutherford DO The identity of the patient was confirmed and a bedside time out was performed. Description of Procedure: Patient was evaluated and required intubation for impending respiratory failure. The patient was prepared in the usual fashion. While maintaining in-line stabilization, A glide scope was used. A 7.5 mm inner diameter endotrachial tube was placed endotracheally to 23 cm at the teeth. Patient was noted to be aspirating on video laryngoscopy. The glottic opening was somewhat anterior and complicated with decreased oral opening. Ultimately a, rubber bougie was entered into the airway and the endotracheal tube was noted to pass through the vocal cords. Chest rise was bilateral. Bilateral breath sounds were heard without air sounds in the abdomen. Mist was noted in the endotracheal tube. End-tidal CO2 measurement was positive. Chest x-ray shows proper endotracheal tube placement. Further positioning was confirmed via bronchoscopy. Complications: Aspiration of oral pharyngeal contents which included blood from presumptive nasopharyngeal trauma with attempted placement of the course safe feeding tube Findings: Not applicable Specimens: Not applicable Estimated blood loss: Zero Coding CPT Codes Resuscitation - Resuscitation: Endotracheal Intubation, emergency ([id number])
--- NOTE | 2019-02-12 20:41 | XRay Report ---
XR chest 1V portable CLINICAL HISTORY: line placement COMPARISON STUDY: Chest radiograph February 12, 2019 at 6:51 AM. FINDINGS: Tip of endotracheal tube is 5.2 cm above the risa. Tip of right subclavian central line p rojects over the mid SVC. There is no pneumothorax. Bilateral pleural effusions and bibasilar opaciti es persist. Cardiomediastinal silhouette is normal. Right-sided rib fractures are better depicted on prior chest CT. Mild pulmonary edema has slightly improved. IMPRESSION: 1. Satisfactory positioning of the endotracheal tube. 2. No pneumothorax following placement of a right subclavian central line. 3. Persistent bilateral pleural effusions and bibasilar opacities. Interval improvement in pulmonary edema. Electronically signed by: Sam Worrell M.D. 02/12/2019 8:39 PM
--- NOTE | 2019-02-12 20:44 | Procedure Note ---
Procedure Note Date of Service February 12, 2019 Procedure Date: noted above Procedure: Thoracentesis Pre-procedure Diagnosis: Persistent bacteremia new pleural effusions Post-procedure Diagnosis: same as above Prior to Procedure: Informed Consent: Two-physician consent was obtained with myself and Dr. Jolley Attending Staff: Adele Rutherford DO Resident/Physician Salesperson Hearing Aids: Not applicable Indications: The patient is a 63-year-old male patient with persistent bacteremia and bilateral pleural effusions requiring thoracentesis to evaluate for possible source. The identity of the patient was confirmed and a bedside time out was performed. Description of Procedure: Patient positioned, the left posterior axillary line was prepped with chlorhexidine and draped in usual sterile fashion. Ultrasound guidance was used and appropriate fluid pocket was identified. 4 mL of 1% Lidocaine without epinephrine was used to anesthetize the area. A needle was introduced into the pleural space over the superior margin of the rib with care and fluid removed and sent for analysis. Total Fluid Removed: 10 ml Color of Fluid: Staw Color Sent for: Gram Stain, culture, cell count, glucose, protein Complications: None Estimated blood loss: Trace Images obtained are saved for permanent record Post procedure chest x-ray has been ordered Coding CPT Codes Pulmonary/Thoracic - Pulmonary and Thoracic: Thoracentesis w/o imaging ([id number])
--- NOTE | 2019-02-12 20:49 | Procedure Note ---
Procedure Note Date of Service February 12, 2019 Procedure Date: noted above Procedure: Thoracentesis Pre-procedure Diagnosis: Persistent bacteremia new pleural effusion Post-procedure Diagnosis: same as above Prior to Procedure: Informed Consent: Two-physician consent was obtained Attending Staff: Adele Rutherford DO Resident/Physician Accounting Assistant: Not applicable Indications: The patient is a 63-year-old male patient with persistent bacteremia, unclear source, new pleural effusion requiring thoracentesis The identity of the patient was confirmed and a bedside time out was performed. Description of Procedure: Patient positioned, the left posterior axillary line was prepped with chlorhexidine and draped in usual sterile fashion. Ultrasound guidance was used and appropriate fluid pocket was identified. 4 mL of 1% Lidocaine without epinephrine was used to anesthetize the area. A needle was introduced into the pleural space over the superior margin of the rib with care and fluid removed and sent for analysis. Total Fluid Removed: 10 ml Color of Fluid: Staw Color Sent for: Gram Stain, culture, cell count, Complications: None Estimated blood loss: Trace Post procedure chest x-ray has been ordered Coding CPT Codes Pulmonary/Thoracic - Pulmonary and Thoracic: Thoracentesis w/o imaging ([id number])
--- NOTE | 2019-02-12 20:52 | Procedure Note ---
Procedure Note Date of Service February 12, 2019 Procedure Date: Noted above Critical Care Medicine Point of Care Bedside Ultrasound Procedure: Limited Bedside Lung Ultrasound Indication: Bilateral pleural effusions Attending: Charmaine Rutherford DO Resident/Physician Rehabilitation Consultant: Not applicable Organs Examined: Lung BLUE point (upper), BLUE point (lower), Phrenic Point (axillary), PLAPS point (posterior) A lines visualized: Present, Hemithorax: Right anterior B lines visualized: Absent, Hemithorax: Bilateral Lung Sliding: Present, Hemithorax: Bilateral Tissue-like Sign: Present, Hemithorax: Bilateral phrenic points into the posterior thorax Shred Sign: Absent, Hemithorax: Bilateral Quad Sign: Present, Hemithorax: Bilateral phrenic point extending into the posterior thorax Sinusoid Sign: Present, Hemithorax: Bilateral Type of effusions: Simple, Hemithorax: Bilateral Interpleural distance: Greater than 2 cm Impression: Bilateral pleural effusions with impression of simple fluid without loculation and consolidative changes in the surrounding lung. Images obtained are saved for permanent record Coding CPT Codes Pulmonary/Thoracic - Pulmonary and Thoracic: US, Chest, real time with imaging documentation ([id number])
--- NOTE | 2019-02-12 20:54 | Critical Care Consultation ---
Date of Consultation February 12, 2019 Assessment & Plan (1) Respiratory failure, acute neuromuscular: Reason Critically Ill: 63-year-old male with multiple comorbidities and acute neuromuscular respiratory failure PLAN: Neuro: Acute encephalopathy -Toxic metabolic versus infectious versus paraneoplastic -Ammonia level pending, previously it was within normal limits -Consideration given to lumbar puncture to facilitate work-up -In discussion with spinal surgery, there is a known space- occupying lesion without significant compression of the cord, there is concern that if we drained a large amount of fluid this could allow the space-occupying lesion to expand and possibly compress the cord. Further the patient appears to be having issues with epistaxis and some bleeding especially in the setting of early azotemia, I believe the risks outweigh the benefits of performing a lumbar puncture at this time. Acute musculoskeletal weakness -I reviewed the neurology notes, will attempt to obtain thoracic and lumbar spine image as well as brachial plexus -Consideration given to nutritional deficits -Will load with thiamine for possible Warnicke Korsakoff, however I think this is somewhat unlikely -500 mg IV thiamine 3 times daily for 2 days then 200 mg thereafter -Consideration given to expansion of epidural hematoma -Stat MRI of cervical spine -Possible central cord syndrome -Possibility exists of paraneoplastic syndrome versus polymyositis, no significant rash to suggest dermatomyositis. -CPK 33: Low, doubtful of myositis -Question myasthenic syndromes -In review of neurology notes patient may benefit from EMG, order placed Probable drug abuse -Urine drug screen positive for methamphetamine -Unclear how patient contracted hepatitis C -Multiple tattoos Resp: Acute neuromuscular weakness -Patient had a negative inspiratory force of -10, concern of aspiration Bilateral infiltrates on chest x-ray -Consistent with pleural effusions on ultrasound -Bilateral thoracentesis as per patient is persistently bacteremic to evaluate for possible empyema -Bronchoscopy undertaken to rule out pneumonia given atypical hospital course, persistent bacteremia -No evidence of diffuse alveolar hemorrhage on serial lavage Multiple pulmonary nodules -Follow-up CT scan CV: Abnormal EKG -Prolonged QTC on EKG dated February 07, 2019 -Incomplete right bundle branch block -Elevated troponins -Downtrending and in the setting of acute kidney injury -Patient may benefit from transesophageal echocardiography if we do not find a definitive source -Admittedly with a hyperdynamic echo and no obvious regurgitation in the chance of having significant valvular findings is lower Fluids/Renal: Presumed chronic bladder outlet obstruction -Based off of renal ultrasound February 10 in conjunction with nursing staff report of 1.5 L drained when Ruby catheter placed -Unclear if this may represent neurogenic bladder changes Acute kidney injury -Likely multifactorial -Changes consistent with acute tubular necrosis -Possible chronic bladder outlet obstruction Hyperkalemia -Improving with aggressive diuresis ID: Methicillin sensitive staph aureus bacteremia Methicillin sensitive staph aureus year urinary tract infection -Patient has yet to clear blood cultures -Unclear source of bacteremia -MRI of spine pending, question chronic changes in bladder -Reviewed infectious disease notes we will discontinue aztreonam as multiple blood cultures have not demonstrated gram-negative organism -Flagyl discontinued previously Rocephin 2 g every 24 hours -Day 6 ? Doxycycline 100 mg twice daily -Day 1? GI/Nutrition: Cirrhosis -New hepatitis C diagnosis -Sending alpha-fetoprotein as it is unclear how long this patient has hepatitis C -Meld score 18: Bilirubin improving Sarcopenia -Severe hypoalbuminemia -Severe muscle weakness -Increasing anasarca -Prealbumin pending -With airway secure will place course safe and start tube feeding -Novasource renal: Started 10 mL's continuous increasing by 10 mL's every 8 hours to goal of 30 continuous Heme: Anemia -Sending iron studies, reticulocyte count Epistaxis -Likely traumatic from NG placement Possible coagulopathy -Mildly elevated INR at 1.3 -Consideration given to azotemia and uremia DVT prophylaxis: Chemical prophylaxis contraindicated to epidural hematoma -SCDs Endocrine: ICU hyperglycemia protocol TSH and random cortisol pending Musculoskeletal: Acute right ninth and 10th rib fractures Right Psoas muscle changes on CT scan -Unable to obtain contrasted CT scan at this time due to renal insufficiency Possible discitis -MRI of spine obtained Spinal stenosis -Discussed case with Dr. Multani -Previously no significant evidence of cord compression or central cord contusion Vascular access: Left-sided radial arterial line placed February 12, 2019, right subclavian placed February 12, 2019 Code Status: Full code I discussed the case with Dr. Jolley of hospitalist medicine, Dr. Multani of spinal surgery, Dr. Worrell of radiology I have personally spent 120 minutes of critical care time in the direct management of this patient. This is a life/limb threatening event. This includes time spent evaluating patient, direct bedside care, chart review, placing orders, interpretation of diagnostic studies, discussion with consultants, patient, and/or family members regarding treatment decisions, as well as other required patient management activities. This time is exclusive of all separately billable procedures, and teaching time and separate from and in addition to any other critical care service time. Present on Admission?: No (2) Central cord synd/C1-C4: (3) Hypoalbuminemia due to protein-calorie malnutrition: (4) Sepsis secondary to UTI: (5) Acute urinary retention: (6) Closed rib fracture: (7) Acute kidney injury: (8) Elevated troponin: (9) Drug abuse, amphetamine type: (10) Hepatitis C antibody positive in blood: (11) Gram-positive cocci bacteremia: (12) Metabolic encephalopathy: (13) Ribs, multiple fractures: (14) Fall: (15) Bacteremia due to Gram-positive bacteria: (16) Pleural effusion on right: (17) Pleural effusion on left: (18) Splenomegaly: (19) Abnormal EKG: (20) Incomplete RBBB: History of Present Illness Attending Physician: Norris Jolley MD Was contacted by the hospitalist service for increasing lethargy, worsening weakness, persistent bacteremia, acute kidney injury. I reviewed the past medical records, in brief summary the patient appears to not have followed with a primary care physician for some time as he did not report any significant past medical history. He is reportedly from [place] and came to work with a friend and subsequently suffered a fall from a ladder. After that fall he reportedly been in his van which she was reportedly living out of for approximately 2 days. A concerned citizen checked on the patient and sent him to the hospital for further evaluation. Since his admission at [facility] he is undergone extensive testing and has been seen by several subspecialists. He is persistently bacteremic without a clear source. He has reportedly had waxing and waning neurologic findings. In my discussion with orthopedic spine surgery the patient reported he has chronic weakness from an accident in approximately 1990 however it is noted that the patient was reported to be on a ladder within the last 2 weeks. In review of neurology notes it is unclear whether the patient's left upper extremity weakness is acute, chronic or acute on chronic. Additionally it appears the patient has been invasive in some of his history. During my evaluation today the patient is rather lethargic and non-participatory in the history. He certainly cannot participate in teaching back to the risks and benefits of procedures. It is clear that the patient has sought medical treatment and has not declined to undergo any evaluation and testing at this point. It is reported that he has no medical power of wound specialist. Since the patient has had an acute change both Dr. Kirk and I considered this deterioration acute and emergent and will proceed with two-physician consent for procedures to facilitate his evaluation and treatment. Allergies Allergy/AdvReac Type Severity Reaction Status Date / Time Penicillins Allergy Unknown UNKNOWN Verified 02/05/19 01:02 Home Medications Home Medications Medication Instructions Recorded Confirmed Type ascorbic acid (vitamin C) [Vitamin 1 g PO DAILY 02/05/19 02/05/19 History C] multivitamin 1 tab PO DAILY 02/05/19 02/05/19 History naproxen sodium [Aleve] 220 mg PO DIRECTED PRN 02/05/19 02/05/19 History oxycodone-acetaminophen [Percocet] 1 - 2 tab PO DIRECTED PRN 02/05/19 02/05/19 History vitamin B complex 1 tab PO DAILY 02/05/19 02/05/19 History Patient History Medical History No known health problems Social History Preferred Language: [place] Communication Ability: Impaired Casting Associate Required: No Beliefs That Will Affect Care: None Current Living Situation: Homeless Current Living Situation Comment: Patient lives in his van Other Information That Helps Us Care for You: No Feels Safe at Home: Yes Safety Concerns: Feels Safe At This Time Smoking Status: Never smoker Hx Alcohol Use: No Hx Substance Use: No Review of Systems Review of Systems: Unobtainable due to reduced consciousness Physical Exam Physical Exam: General: Ill appearing male who appears older than his stated age in a soft cervical collar I have reviewed the recorded vital signs Neurological: RASS score: -1, DTR of the left patella did elicit firing of his left quadricep, this was absent on the right. He reports he is unable to move his left lower extremity, however he was able to dorsiflex his right foot. His left upper extremity appears to be flaccid without mechanical response, there is some movement of the right upper extremity. Sensation is reported to be intact in all 4 extremities, he would moan with palpation of all 4 extremities I am unable to elicit adequate responses to differentiate the exact type of sensory findings. Psychological: Glascow Coma Scale: Eyes: 4, Verbal 4, Motor 6, Total 14 patient is disoriented to certain questions, he is aware he is in a hospital. Eyes: Pupils are equal, round and reactive to light, anicteric sclera. Symmetrical lids. HENT: Poor dentition, no obvious dental abscess is noted, bloody secretions in the back of the hypopharynx purportedly secondary to nasal trauma with course safe feeding tube. Neck: In a soft cervical collar, maintaining in-line stabilization there was no significant pain with direct palpation no obvious step-offs or deformities. Cardiovascular: Normal peripheral perfusion. Distal pulses and capillary refill intact. No JVD. Respiratory: Respirations are non-labored, no accessory muscle use. Breath sounds are distant and rhonchi are present bilaterally Gastrointestinal: Soft. Non-distended. : Ruby present significant scrotal edema Lymphatic: No cervical lymphadenopathy. Musculoskeletal: 2+ pitting edema up to the knee, significant edema of the bilateral upper extremities Skin: Multiple tattoos on his torso, upper extremities. Results & Data Vital Signs (Past 12 Hours) Vital Signs Temp Pulse Pulse Resp BP BP BP 02/12/19 18:31 91 H 167/89 H 02/12/19 18:30 94 H 02/12/19 18:01 95 H 166/90 H 02/12/19 18:00 98 H 02/12/19 17:31 102 H 165/81 H 02/12/19 17:30 101 H 02/12/19 17:01 101 H 148/83 H 02/12/19 17:00 98 H 02/12/19 16:54 101 H 153/85 H 02/12/19 16:30 110 H 02/12/19 16:26 110 H 129/74 02/12/19 16:21 102 H 149/87 H 02/12/19 16:20 105 H 02/12/19 15:25 36.4 C L 107 H 23 133/74 02/12/19 11:14 37.8 C H 107 H 24 140/79 02/12/19 09:00 113 H Pulse Ox 02/12/19 18:31 96 02/12/19 18:30 96 02/12/19 18:01 95 02/12/19 18:00 94 02/12/19 17:31 94 02/12/19 17:30 94 02/12/19 17:01 95 02/12/19 17:00 94 02/12/19 16:54 94 02/12/19 16:30 02/12/19 16:26 96 02/12/19 16:21 02/12/19 16:20 02/12/19 15:25 96 02/12/19 11:14 96 02/12/19 09:00 Laboratory Results 02/12/19 02/12/19 02/12/19 Range/Units Unknown 19:49 19:39 WBC (4.8-10.8) K/uL RBC (4.7-6.1) M/uL Hgb (14.0-18.0) g/dL Hct (42-52) % MCV (80-100) fL MCH (25-34) pg MCHC (32-36) g/dL RDW Std Deviation (36.4-46.3) fL RDW Coeff of Amari (11.5-14.5) % Plt Count (130-400) K/uL MPV (7.4-10.4) fL Immature Gran % (Auto) % Neut % (Auto) % Lymph % (Auto) % Levy % (Auto) % Eos % (Auto) % Baso % (Auto) % Immature Gran # (Auto) (0.00-0.02) K/uL Neut # (Auto) (1.4-6.5) K/uL Lymph # (Auto) (1.2-3.4) K/uL Levy # (Auto) (0.11-0.59) K/uL Eos # (Auto) (0-0.5) K/uL Baso # (Auto) (0-0.2) K/uL Toxic Granulation Toxic Vacuolation Dohle Bodies Tear Drop Cells Echinocytes ESR (0-14) mm/hr PT (9.0-12.0) Seconds INR (0.9-1.1) APTT (21.0-31.0) Seconds PTT Ratio Fibrinogen (184-400) mg/dl Sodium (136-145) mmol/L Potassium (3.5-5.1) mmol/L Chloride (98-107) mmol/L Carbon Dioxide (21-32) mmol/L Anion Gap (3-11) BUN (7-18) mg/dl Creatinine (0.6-1.4) mg/dl Est Cr Clr Drug Dosing ml/min Est GFR ( Amer) Est GFR (Non-Af Amer) BUN/Creatinine Ratio (10-20) Glucose (70-99) mg/dl Lactate (0.4-2.0) mmol/L Calcium (8.5-10.1) mg/dl Total Creatine Kinase (39-308) U/L Procalcitonin (0-0.5) ng/ml Pleural Fluid Source Pending Pending Pleural Color Pending Pending Pleural Appearance Pending Pending Pleural WBC Pending Pending Pleural RBC Pending Pending Nasal Screen MRSA (PCR) Pending 02/12/19 02/12/19 02/12/19 Range/Units 18:09 18:06 18:06 WBC (4.8-10.8) K/uL RBC (4.7-6.1) M/uL Hgb (14.0-18.0) g/dL Hct (42-52) % MCV (80-100) fL MCH (25-34) pg MCHC (32-36) g/dL RDW Std Deviation (36.4-46.3) fL RDW Coeff of Amari (11.5-14.5) % Plt Count (130-400) K/uL MPV (7.4-10.4) fL Immature Gran % (Auto) % Neut % (Auto) % Lymph % (Auto) % Levy % (Auto) % Eos % (Auto) % Baso % (Auto) % Immature Gran # (Auto) (0.00-0.02) K/uL Neut # (Auto) (1.4-6.5) K/uL Lymph # (Auto) (1.2-3.4) K/uL Levy # (Auto) (0.11-0.59) K/uL Eos # (Auto) (0-0.5) K/uL Baso # (Auto) (0-0.2) K/uL Toxic Granulation Toxic Vacuolation Dohle Bodies Tear Drop Cells Echinocytes ESR 52 H (0-14) mm/hr PT 13.0 H (9.0-12.0) Seconds INR 1.3 H (0.9-1.1) APTT 29.1 (21.0-31.0) Seconds PTT Ratio 1.1 Fibrinogen 315 (184-400) mg/dl Sodium (136-145) mmol/L Potassium (3.5-5.1) mmol/L Chloride (98-107) mmol/L Carbon Dioxide (21-32) mmol/L Anion Gap (3-11) BUN (7-18) mg/dl Creatinine (0.6-1.4) mg/dl Est Cr Clr Drug Dosing ml/min Est GFR ( Amer) Est GFR (Non-Af Amer) BUN/Creatinine Ratio (10-20) Glucose (70-99) mg/dl Lactate (0.4-2.0) mmol/L Calcium (8.5-10.1) mg/dl Total Creatine Kinase 33 L (39-308) U/L Procalcitonin (0-0.5) ng/ml Pleural Fluid Source Pleural Color Pleural Appearance Pleural WBC Pleural RBC Nasal Screen MRSA (PCR) 02/12/19 02/12/19 02/12/19 Range/Units 18:06 18:06 12:55 WBC 13.76 H (4.8-10.8) K/uL RBC 3.04 L (4.7-6.1) M/uL Hgb 9.4 L (14.0-18.0) g/dL Hct 28.1 L (42-52) % MCV 92.4 (80-100) fL MCH 30.9 (25-34) pg MCHC 33.5 (32-36) g/dL RDW Std Deviation 49.6 H (36.4-46.3) fL RDW Coeff of Amari 14.7 H (11.5-14.5) % Plt Count 231 (130-400) K/uL MPV 10.1 (7.4-10.4) fL Immature Gran % (Auto) 0.4 % Neut % (Auto) 89.4 % Lymph % (Auto) 5.2 % Levy % (Auto) 4.9 % Eos % (Auto) 0.0 % Baso % (Auto) 0.1 % Immature Gran # (Auto) 0.06 H (0.00-0.02) K/uL Neut # (Auto) 12.29 H (1.4-6.5) K/uL Lymph # (Auto) 0.72 L (1.2-3.4) K/uL Levy # (Auto) 0.68 H (0.11-0.59) K/uL Eos # (Auto) 0.00 (0-0.5) K/uL Baso # (Auto) 0.01 (0-0.2) K/uL Toxic Granulation 1+ Toxic Vacuolation 1+ Dohle Bodies 1+ Tear Drop Cells Occasional Echinocytes 2+ ESR (0-14) mm/hr PT (9.0-12.0) Seconds INR (0.9-1.1) APTT (21.0-31.0) Seconds PTT Ratio Fibrinogen (184-400) mg/dl Sodium 134 L 134 L (136-145) mmol/L Potassium 5.3 H 5.8 H (3.5-5.1) mmol/L Chloride 105 106 (98-107) mmol/L Carbon Dioxide 18 L 18 L (21-32) mmol/L Anion Gap 11.0 10.0 (3-11) BUN 102 H 104 H (7-18) mg/dl Creatinine 1.90 H 1.95 H (0.6-1.4) mg/dl Est Cr Clr Drug Dosing 40.9 39.8 ml/min Est GFR ( Amer) 42.8 41.5 Est GFR (Non-Af Amer) 37.0 35.8 BUN/Creatinine Ratio 53.8 H 53.3 H (10-20) Glucose 106 H 91 (70-99) mg/dl Lactate (0.4-2.0) mmol/L Calcium 7.4 L 6.8 L (8.5-10.1) mg/dl Total Creatine Kinase (39-308) U/L Procalcitonin (0-0.5) ng/ml Pleural Fluid Source Pleural Color Pleural Appearance Pleural WBC Pleural RBC Nasal Screen MRSA (PCR) 02/12/19 02/12/19 02/12/19 Range/Units 06:51 06:51 06:51 WBC (4.8-10.8) K/uL RBC (4.7-6.1) M/uL Hgb (14.0-18.0) g/dL Hct (42-52) % MCV (80-100) fL MCH (25-34) pg MCHC (32-36) g/dL RDW Std Deviation (36.4-46.3) fL RDW Coeff of Amari (11.5-14.5) % Plt Count (130-400) K/uL MPV (7.4-10.4) fL Immature Gran % (Auto) % Neut % (Auto) % Lymph % (Auto) % Levy % (Auto) % Eos % (Auto) % Baso % (Auto) % Immature Gran # (Auto) (0.00-0.02) K/uL Neut # (Auto) (1.4-6.5) K/uL Lymph # (Auto) (1.2-3.4) K/uL Levy # (Auto) (0.11-0.59) K/uL Eos # (Auto) (0-0.5) K/uL Baso # (Auto) (0-0.2) K/uL Toxic Granulation Toxic Vacuolation Dohle Bodies Tear Drop Cells Echinocytes ESR (0-14) mm/hr PT (9.0-12.0) Seconds INR (0.9-1.1) APTT (21.0-31.0) Seconds PTT Ratio Fibrinogen (184-400) mg/dl Sodium 133 L (136-145) mmol/L Potassium 5.4 H (3.5-5.1) mmol/L Chloride 107 (98-107) mmol/L Carbon Dioxide 19 L (21-32) mmol/L Anion Gap 8.0 (3-11) BUN 91 H (7-18) mg/dl Creatinine 1.95 H (0.6-1.4) mg/dl Est Cr Clr Drug Dosing 39.8 ml/min Est GFR ( Amer) 41.5 Est GFR (Non-Af Amer) 35.8 BUN/Creatinine Ratio 46.7 H (10-20) Glucose 88 (70-99) mg/dl Lactate 1.2 (0.4-2.0) mmol/L Calcium 7.2 L (8.5-10.1) mg/dl Total Creatine Kinase (39-308) U/L Procalcitonin 1.00 H (0-0.5) ng/ml Pleural Fluid Source Pleural Color Pleural Appearance Pleural WBC Pleural RBC Nasal Screen MRSA (PCR) 09/15/19 Range/Units 06:51 WBC 19.57 H (4.8-10.8) K/uL RBC 3.55 L (4.7-6.1) M/uL Hgb 11.3 L (14.0-18.0) g/dL Hct 32.6 L (42-52) % MCV 91.8 (80-100) fL MCH 31.8 (25-34) pg MCHC 34.7 (32-36) g/dL RDW Std Deviation 49.5 H (36.4-46.3) fL RDW Coeff of Amari 14.7 H (11.5-14.5) % Plt Count 242 (130-400) K/uL MPV 10.3 (7.4-10.4) fL Immature Gran % (Auto) % Neut % (Auto) % Lymph % (Auto) % Levy % (Auto) % Eos % (Auto) % Baso % (Auto) % Immature Gran # (Auto) (0.00-0.02) K/uL Neut # (Auto) (1.4-6.5) K/uL Lymph # (Auto) (1.2-3.4) K/uL Levy # (Auto) (0.11-0.59) K/uL Eos # (Auto) (0-0.5) K/uL Baso # (Auto) (0-0.2) K/uL Toxic Granulation Toxic Vacuolation Dohle Bodies Tear Drop Cells Echinocytes ESR (0-14) mm/hr PT (9.0-12.0) Seconds INR (0.9-1.1) APTT (21.0-31.0) Seconds PTT Ratio Fibrinogen (184-400) mg/dl Sodium (136-145) mmol/L Potassium (3.5-5.1) mmol/L Chloride (98-107) mmol/L Carbon Dioxide (21-32) mmol/L Anion Gap (3-11) BUN (7-18) mg/dl Creatinine (0.6-1.4) mg/dl Est Cr Clr Drug Dosing ml/min Est GFR ( Amer) Est GFR (Non-Af Amer) BUN/Creatinine Ratio (10-20) Glucose (70-99) mg/dl Lactate (0.4-2.0) mmol/L Calcium (8.5-10.1) mg/dl Total Creatine Kinase (39-308) U/L Procalcitonin (0-0.5) ng/ml Pleural Fluid Source Pleural Color Pleural Appearance Pleural WBC Pleural RBC Nasal Screen MRSA (PCR) Diagnostic Findings I have reviewed the chest x-rays as well as the radiology report of February 12 I have reviewed the radiology report of February 10 of a renal ultrasound. Appearance of the bladder suggests chronic outlet obstruction, cirrhotic liver morphology small volume abdominal pelvic ascites with right pleural effusion I have reviewed the radiology report of the brain MRI: : Age-related changes, otherwise negative study. I have reviewed the radiology report of the neck CTA: No significant stenosis of the carotid or vertebrobasilar system I have reviewed the radiology report of the CTA of the brain: Unremarkable CTA of the head I have reviewed the radiology report of the MRI of the cervical spine dated February 08, 2019.: Fluid collection along the ventral thecal sac at the level of C2-C3 signal characteristics suggestive of hematoma, this exerts moderate mass-effect along the liver ventral thecal sac: There is maintenance of at least trace CSF at the greatest site of stenosis, trace laminar T1 hyperdense epidural signal at the level of C7 with fluid collection on T2, no evidence of abnormal signal within cord to suggest edema or myelomalacia. No convincing evidence of spinal cord impingement, though these were compared with CT of the cervical spine from 02/05/2019. No convincing evidence of acute osseous or ligamentous injury. I have reviewed the liver ultrasound dated February 05, 2019: Nodularity with early changes suggestive of cirrhosis, biliary sludge, trace pericholecystic fluid, no intra-or extrahepatic biliary ductal dilatation. I have reviewed the chest abdomen pelvis CT dated February 05, 2019. Acute fractures of the right posterior ninth and 10th ribs. Airspace opacities in the right base. Right so as muscle is heterogeneous and expanded, possible differential could represent intramuscular hematoma, cystic lesion or collection, possibly nerve sheath tumor such as neurofibroma or schwannoma. I have reviewed the echo report of February 05, 2019: Hyperdynamic changes EF greater than 70%, no significant valvular disease noted PG Care Time/CCT Total # of Minutes Spent Total Time Spent with Patient: Total time spent is greater than 50% in coordination of care (as documented) at patient's floor/unit and/or counseling patient: Critical Care Time: Yes Total Critical Care Time: 120 (1) Closed rib fracture Encounter type: initial encounter Laterality: right Rib fracture type: multiple ribs Qualified Code(s): S22.41XA - Multiple fractures of ribs, right side, initial encounter for closed fracture
--- NOTE | 2019-02-12 20:54 | Procedure Note ---
Procedure Note Date of Service February 12, 2019 Procedure date: Noted above Procedure: Central venous access Pre-procedure indication: Persistent bacteremia need for long-term vascular access Post-procedure Diagnosis: same as above Prior to Procedure: Informed Consent: Two-physician consent was obtained with myself and Dr. Jolley Attending Staff: Charmaine Rutherford DO Resident/APC: Not applicable Skin Prep: Chlorhexidine Anesthesia: 4 mL 1% lidocaine without epinephrine The identity of the patient was confirmed and a bedside time out was performed. Description of Procedure: After sterile prep and sterile drape utilizing standard sterile technique the superficial skin of the right subclavian area was anesthetized. The target vessel was identified and entered with an 18-gauge needle. Dark venous blood return was noted. A guidewire was inserted through the needle and into the vessel. The needle was withdrawn and a skin miguelangel was made. A tissue dilator was advanced via Seldinger technique and removed. A triple lumen catheter was inserted via Seldinger technique and the guidewire removed. All ports scott and flushed easily. A Biopatch was placed, and the catheter was secured via silk suture and a commercial securement device. A sterile dressing was then applied. Complications: None Estimated blood loss: Trace Patient tolerated the procedure well. A post procedure chest x-ray was reviewed and no pneumothorax was noted the subclavian line was noted to be in the appropriate position. Coding
--- NOTE | 2019-02-12 20:56 | Procedure Note ---
Procedure Note Date of Service February 12, 2019 Procedure date: Noted above Procedure: fiberoptic bronchoscopy Pre-procedure indication: Chest x-ray infiltrates, bilateral pleural effusions, bacteremia with unclear source, witnessed aspiration Post-procedure Diagnosis: same as above Prior to Procedure: Informed Consent: Two-physician consent was obtained with myself and Dr. Jolley Attending Staff: Charmaine Rutherford DO Resident/APC: Not applicable Skin Prep: Not applicable Anesthesia: Continuous infusion The identity of the patient was confirmed and a bedside time out was performed. Description of Procedure: Fiberoptic bronchoscopy was performed via endotracheal tube. Bronchioalveolar lavage right middle lobe was performed. Findings included: Bloody secretions appeared to have been aspirated down the right middle lobe and into the right lower lobes and a small portion into the left lower lobe. Serial lavage there is no evidence of diffuse alveolar hemorrhage from the right middle lobe. Complications: None Specimens: Bronchial washings sent for culture and Gram stain, cytology, fungal elements, and AFB stain and culture. Estimated blood loss: Zero Coding CPT Codes Pulmonary/Thoracic - Pulmonary and Thoracic: Dx bronchoscopy/wash ([id number])
[2019-02-12] MEDS ORDERED: FAMOTIDINE 20MG/5ML IV PUSH IV SCH (21:00)
[2019-02-12 21:55] LABS: Appearance Pleural Fluid HAZY; Color Pleural Fluid STRAW; Mononuclear WBC Pleural 56.9 %; Polynuclear WBC Pleural 43.1 %; RBC Pleural Fluid (A) 6000 /uL; Source Pleural Fluid RIGHT LUNG; WBC Pleural Fluid (A) 266 /uL
[2019-02-12 21:55] LABS: Appearance Pleural Fluid HAZY; Color Pleural Fluid STRAW; Mononuclear WBC Pleural 51.8 %; Polynuclear WBC Pleural 48.2 %; RBC Pleural Fluid (A) 4000 /uL; Source Pleural Fluid LEFT LUNG; WBC Pleural Fluid (A) 318 /uL
[2019-02-12 21:59] LABS: Prealbumin 8.8 mg/dl (20-40); Thyroid Stimulating Hormone 2.72 uIu/ml (0.300-4.500)
[2019-02-12 22:11] LABS: Ferritin 751.5 ng/ml (8-388)
--- NOTE | 2019-02-12 22:36 | Magnetic Resonance Report ---
MRI OF THE CERVICAL SPINE WITHOUT CONTRAST CLINICAL HISTORY: Worsening respiratory function. COMPARISON: MRI of the cervical spine February 08, 2019. TECHNIQUE: Utilizing a 1.5 Jessica magnet and dedicated coil, multiplanar, multiecho imaging of the ce rvical spine was performed without IV contrast. FINDINGS: Note is again made of a mixed signal intensity anterior epidural fluid collection that measures appro ximately 4.7 x 0.9 cm. This extends from the C1 through mid C3 levels. Moderate mass effect upon the cervical cord is again noted. This epidural hematoma is similar in size to MRI February 08, 2019. Ma ss effect is also similar to prior exam. No cervical cord signal abnormality is identified although e valuation is compromised given motion artifact. Endotracheal tube is noted. Secretions within the pha rynx are noted. Moderate prevertebral edema has mildly increased since MRI of February 08, 2019. Par aspinous muscular edema most pronounced at the C4-C6 level has mildly increased as well. Increased fl uid signal within C5-C6 disc has increased. Marrow signal on the T1-weighted sequence is diminished w ithin the cervical spine. Moderate multilevel degenerative disc disease and facet arthrosis is presen t. This results in moderate central canal stenosis at C4-C5. This is unchanged. The MRI of the thorac ic spine will be reported separately. IMPRESSION: 1. No significant change in size of the anterior epidural hematoma which extends from C1-C3 since MRI of February 08, 2019. Moderate cord compression which is similar to prior exam. No cord signal abno rmality although exam mildly compromised by motion artifact. Spine surgical consultation is recommend ed. 2. Increased fluid signal within the C5-C6 disc. This is nonspecific and early discitis cannot be exc luded. 3. Increase in moderate prevertebral edema and paraspinal musculature edema. 4. Diffusely diminished T1 marrow signal throughout the spine. This raises the possibility of a marro w proliferative/marrow replacement process. Electronically signed by: Sam Worrell M.D. 02/12/2019 10:35 PM
--- NOTE | 2019-02-12 22:41 | Magnetic Resonance Report ---
MRI OF THE THORACIC SPINE WITHOUT CONTRAST CLINICAL HISTORY: R/O infection H/O fall COMPARISON: CT of the thoracic spine February 05, 2019. TECHNIQUE: Utilizing a 1.5 Jessica magnet and dedicated coil, multiplanar, multiecho imaging of the th oracic spine was performed without IV contrast. FINDINGS: Alignment of the thoracic spine is anatomic. Marrow signal within the thoracic spine is dif fusely diminished on the T1-weighted sequence. Thoracic cord signal and caliber is normal. Slight inc reased signal intensity within the anterior epidural space within the upper thoracic canal is noted. A small component of epidural hematoma extending from the cervical spine cannot be excluded. A few ri ght-sided rib fractures are noted. A large right pleural effusion has significantly increased in size since prior chest CT. A left pleural effusion has also increased in size since prior CT. This appear s loculated with apparent areas of increased T1 signal. The right pleural effusion also appears locul ated. Extensive opacity within the right lower lung is suboptimally assessed by MRI. No thoracic spin e fracture is identified. There is no evidence for discitis within the thoracic spine. A 1.7 cm T2 hy perintense focus within the left aspect of the canal at the T8-T9 level is noted. IMPRESSION: 1. Slight increased signal intensity within the anterior epidural space within the upper thoracic can al. This is likely artifactual however a small component of epidural hematoma extending from the cerv ical spine cannot be excluded. Normal thoracic cord signal and caliber. No significant stenosis withi n the thoracic canal. 2. Significant increase in size of complex bilateral pleural effusions which appear multiloculated an d extend into the paravertebral regions. These could reflect hemothoraces or empyemas. A neoplastic p rocess is considered less likely however could appear similar. A chest CT with contrast may be of huong efit in further evaluation. Significant right lung consolidation/atelectasis. 3. Indeterminate 1.7 cm intracanalicular T2 hyperintense focus within the left aspect of the canal at the T8-T9 level. 4. Diffuse marrow signal abnormality within the thoracic spine which raises the possibility of marrow proliferative/replacement process. Electronically signed by: Sam Worrell M.D. 02/12/2019 10:40 PM
[2019-02-12 23:12] LABS: Reticulocyte % 1.5 % (0.5-2.0); Reticulocytes # 0.05 10^6/uL (0.02-0.10)
--- NOTE | 2019-02-12 23:32 | Magnetic Resonance Report ---
MRI OF THE CHEST WITHOUT CONTRAST BRACHIAL PLEXUS CLINICAL HISTORY: Left upper extremity weakness. Evaluate for brachial plexus injury. COMPARISON STUDY: Chest CT February 05, 2019. TECHNIQUE: Utilizing a 1.5 Jessica magnet and dedicated coil, multiplanar, multiecho imaging of the nec k and upper to mid chest was performed without intravenous contrast. FINDINGS: This exam is compromised by motion artifact. The anterior epidural fluid collection at the C1-C3 levels is better depicted on MRI of the cervical spine. Reversal of the normal cervical lordosi s is noted. Endotracheal tube is noted. Complex bilateral pleural effusions, right larger left, are p artially imaged on this examination. It is made of prevertebral edema within the cervical spine which is better depicted on the MRI of the cervical spine. Visualized portions of the intracranial content s are unremarkable. Brachial plexus is suboptimally assessed on this exam but there is no MR evidence for brachial plexus injury. IMPRESSION: 1. Exam compromised by artifact but no convincing evidence for brachial plexus injury. 2. Complex bilateral pleural effusions, right larger than left, partially imaged on this exam. 3. Anterior epidural fluid collection at C1-C3 which favors an epidural hematoma, better depicted on the MRI of the cervical spine. Prevertebral edema, also better depicted on that exam. Electronically signed by: Sam Worrell M.D. 02/12/2019 11:29 PM
[2019-02-12] MEDS: PROPOFOL 1,000 MG/100 ML VIAL IV PRN (23:40)
[2019-02-13] MEDS ORDERED: AZTREONAM 1,000 MG in DEXTROSE 5% 100 ML IV SCH
[2019-02-13 00:11] LABS: iSTAT Art Bld Gas pCO2 Correct 28 mmHg (35-46); iSTAT Art Bld Gas pH Corrected 7.387 (7.35-7.45); iSTAT Arterial Blood Gas HCO3 17 meg/L (19-24); iSTAT Arterial Blood Gas pCO2 29 mmHg (35-46); iSTAT Arterial Blood Gas pH 7.38 (7.35-7.45); iSTAT Arterial Blood Gas pO2 164 mmHg (80-95); iSTAT Arterial Blood Gas pO2 C 160; iSTAT Carbon Dioxide 18 mEq/l (24-31); iSTAT Site Art Line
[2019-02-13] MEDS: FAMOTIDINE 20 MG in SYRINGE 3 ML IV SCH ×2 (00:30→08:20)
[2019-02-13] MEDS: THIAMINE HCL 500 MG in SODIUM CHLORIDE 0.9% 50 ML IV SCH ×2 (00:31→05:19)
[2019-02-13] MEDS: CHECK CLONIDINE PATCH PLACEMENT SCH ×2 (00:51→07:49)
[2019-02-13] MEDS: DOXYCYCLINE HYCLATE 100 MG CAP PO SCH (00:52)
[2019-02-13 00:55] LABS: Folate (Folic Acid) 17.79 ng/ml (>5.38); Vitamin B12 > 2000 pg/ml (211-911)
[2019-02-13] MEDS: fentaNYL citrate 100 MCG/2 ML VIAL IV PRN ×2 (01:29→03:53)
[2019-02-13] MEDS: FUROSEMIDE IV SCH ×2 (01:31→02:06)
[2019-02-13] MEDS: ALBUMIN 25% IV SCH ×2 (01:31→02:06)
[2019-02-13] MEDS: HydrALAZINE HCL 20 MG/ML VIAL IV PRN (02:09)
[2019-02-13 04:46] LABS: Hematocrit (blood only) 24.2 % (42-52); Hemoglobin 8.1 g/dL (14.0-18.0); Mean Corpuscular Hemoglobin 31.3 pg (25-34); Mean Corpuscular Hgb Conc 33.5 g/dL (32-36); Mean Corpuscular Volume 93.4 fL (80-100); Mean Platelet Volume 9.6 fL (7.4-10.4); Platelet Count 208 K/uL (130-400); RDW Coefficient of Variation 14.9 % (11.5-14.5); Red Blood Count 2.59 M/uL (4.7-6.1); White Blood Count 11.79 K/uL (4.8-10.8)
[2019-02-13 05:16] LABS: BUN Creatinine Ratio 60.1 (10-20); Creatinine Clr Calc Pharmacy 45.7 ml/min; Est GFR (Non-African American) 42.3; Phosphorus 6.4 mg/dl (2.5-4.9); Potassium 4.5 mmol/L (3.5-5.1)
[2019-02-13] MEDS: PROPOFOL 1,000 MG/100 ML VIAL IV PRN ×2 (05:52→09:23)
--- NOTE | 2019-02-13 07:04 | XRay Report ---
XR KUB/Abdomen 1 view CLINICAL HISTORY: 63 years-old Male presenting with Core Safe inserted. TECHNIQUE: Single supine view of the abdomen was obtained. COMPARISON: CT from 02/05/2019. FINDINGS: Weighted feeding catheter containing a guidewire terminates in the body of the stomach. A Ruby carlee ter and potentially a temperature probe projects over the pelvis. Moderate stool burden predominantly in the right and transverse colon. Mild gaseous distention of sma ll and large bowel with an apparent small bowel diameter of less than 3 cm. No gross pneumoperitoneum align for supine technique. Allowing for bowel gas and stool, no calcifications to suggest nephrolithiasis. Degenerative changes of the spine. Lung bases clear. IMPRESSION: 1. Weighted feeding catheter terminates within the body the stomach. 2. No bowel obstruction. Diffuse gaseous distention of small and large bowel could suggest ileus. Electronically signed by: Brain Barragan M.D. 02/13/2019 7:02 AM
--- NOTE | 2019-02-13 07:29 | Magnetic Resonance Report ---
MR lumbar spine wo con CLINICAL HISTORY: 63 years-old Male presenting with fall from ladder approximately one week ago, conc kayleen for lumbar spine infection. TECHNIQUE: Multisequence, multiplanar MR imaging of the lumbar spine was performed without the use of intravenous contrast. IV contrast: None. COMPARISON: CT from 02/05/2019. FINDINGS: Localizer images: Moderate ascites in the pelvis. Significant bladder wall thickening, likely chronic bladder outlet obstruction. Ruby catheter in place with intraluminal gas within the bladder. Normal lumbar lordosis. Trace bony edema and fatty endplate changes at L5-S1. Trace fluid in the L5-S 1 intervertebral disc. Remainder of the vertebral bodies demonstrate normal height, alignment, and jenni ne marrow signal intensity with the exception of a few scattered benign hemangiomas. Intervertebral d iscs preserved with the exception of L5-S1, where there is severe intervertebral disc height loss. Ad ditional multilevel degenerative changes further detail below: L1-2: No significant neural foraminal or spinal canal narrowing. L2-3: Trace disc bulge. Minimal right neural foraminal narrowing. No significant spinal canal narrowi ng. L3-4: Facet arthropathy. This results in minimal bilateral neural foraminal narrowing. No significant spinal canal narrowing. L4-5: Annular fissure noted. No disc protrusion. Facet arthropathy with prominent fluid in the facet joints. No associated bony edema. Mild to moderate right and mild left neural foraminal narrowing. No significant spinal canal narrowing. L5-S1: Advanced facet arthropathy. Disc osteophyte complex mildly effaces the ventral thecal sac. Mod erate right and mild left neural foraminal narrowing. Abutment of the exiting right L5 nerve root. Diffuse body wall edema. The fluid collection is noted within the right psoas muscle measuring 1.6 cm in diameter and extending along the length of 5.2 cm in craniocaudal dimension. This appears T1 hypo intense. There is also a separate fluid collection within the right erector spinae muscle measuring 3 .2 cm in diameter (series 13 image 4). In this fluid collection does not demonstrate intrinsic T1 hyp erintensity or heterogeneous T2 hypointensity. The degree of diffuse edema within the deep and subcut aneous fat makes assessment difficult. Flow voids within the vasculature grossly preserved allowing f or image quality. IMPRESSION: 1. Multiple fluid collections within right paraspinal musculature concerning for abscesses. Evaluati on limited by lack of intravenous contrast. Signal characteristics do not favor hematomas though this diagnosis is possible. 2. Multilevel degenerative changes. No significant spinal canal narrowing. Neural foraminal narrowin g most severe on the right at L4-5 and L5-S1. 3. Diffuse body wall edema. 4. Volume overload also evidence by the presence of ascites. Electronically signed by: Brain Barragan M.D. 02/13/2019 7:28 AM
--- NOTE | 2019-02-13 08:13 | Electroencephalogram ---
EEG Procedure Note Date of Service February 13, 2019 Start / End Times Start Time: 533 End Time: [address] Rutherford History 63-year-old history of fall with head and neck trauma and confusion. Home Medication List Home Medications Medication Instructions Recorded Confirmed Type ascorbic acid (vitamin C) [Vitamin 1 g PO DAILY 02/05/19 02/05/19 History C] multivitamin 1 tab PO DAILY 02/05/19 02/05/19 History naproxen sodium [Aleve] 220 mg PO DIRECTED PRN 02/05/19 02/05/19 History oxycodone-acetaminophen [Percocet] 1 - 2 tab PO DIRECTED PRN 02/05/19 02/05/19 History vitamin B complex 1 tab PO DAILY 02/05/19 02/05/19 History Inpatient Medication List Clonidine HCl (Olrunqgk-Sxj-8 0.1mg/24hr) 1 patch TD CQWK [facility] Stop: 03/08/19 20:59 Last Admin: 02/06/19 22:11 Dose: 1 patch Documented by: [id number] Doxycycline Hyclate (Vibramycin) 100 mg PO BID [facility] Stop: 02/19/19 08:59 Last Admin: 02/13/19 00:52 Dose: Not Given Documented by: [id number] Admin: 02/12/19 08:35 Dose: 100 mg Documented by: [id number] Fentanyl Citrate (Fentanyl Citrate) 100 mcg IV Q2H PRN PRN Reason: Severe Pain (7,8,9,10) Stop: 02/26/19 18:31 Last Admin: 02/13/19 03:53 Dose: 100 mcg Documented by: [id number] Admin: 02/13/19 01:29 Dose: 100 mcg Documented by: [id number] Hydralazine HCl (Hydralazine Hcl) 10 mg IV Q8H PRN PRN Reason: SBP > 160 Stop: 03/08/19 20:45 Last Admin: 02/13/19 02:09 Dose: 10 mg Documented by: [id number] Admin: 02/07/19 03:53 Dose: 10 mg Documented by: [id number] Acetaminophen (Ofirmev) 1,000 mg in 100 mls @ 400 mls/hr IV Q8H PRN PRN Reason: Pain or Fever Stop: 03/07/19 09:58 Last Infusion: 02/12/19 08:50 Dose: 0 mls/hr Documented by: [id number] Admin: 02/12/19 08:35 Dose: 400 mls/hr Documented by: [id number] Infusion: 02/11/19 21:29 Dose: 0 mls/hr Documented by: [id number] Admin: 02/11/19 19:50 Dose: 400 mls/hr Documented by: [id number] Infusion: 02/11/19 02:08 Dose: 0 mls/hr Documented by: [id number] Admin: 02/11/19 01:32 Dose: 400 mls/hr Documented by: [id number] Infusion: 02/10/19 13:36 Dose: 0 mls/hr Documented by: [id number] Admin: 02/10/19 13:17 Dose: 400 mls/hr Documented by: [id number] Infusion: 02/09/19 23:00 Dose: 0 mls/hr Documented by: [id number] Admin: 02/09/19 22:42 Dose: 400 mls/hr Documented by: [id number] Infusion: 02/09/19 08:48 Dose: 0 mls/hr Documented by: [id number] Admin: 02/09/19 08:30 Dose: 400 mls/hr Documented by: [id number] Infusion: 02/07/19 00:52 Dose: 0 mls/hr Documented by: [id number] Admin: 02/07/19 00:31 Dose: 400 mls/hr Documented by: [id number] Infusion: 02/05/19 21:35 Dose: 0 mls/hr Documented by: [id number] Admin: 02/05/19 21:16 Dose: 400 mls/hr Documented by: [id number] Infusion: 02/05/19 12:24 Dose: 0 mls/hr Documented by: [id number] Admin: 02/05/19 11:10 Dose: 400 mls/hr Documented by: [id number] Thiamine HCl 100 mg/ Syringe 10 mls @ 2 mls/min IV QAM [facility] Stop: 03/09/19 08:59 Last Admin: 02/12/19 08:32 Dose: 2 mls/min Documented by: [id number] Admin: 02/11/19 08:28 Dose: 2 mls/min Documented by: [id number] Admin: 02/10/19 07:43 Dose: 2 mls/min Documented by: [id number] Admin: 02/09/19 08:33 Dose: 2 mls/min Documented by: [id number] Admin: 02/08/19 08:20 Dose: 2 mls/min Documented by: [id number] Admin: 02/07/19 10:46 Dose: 2 mls/min Documented by: [id number] Folic Acid 1 mg/ Syringe 10 mls @ 5 mls/min IV QAM [facility] Stop: 03/09/19 08:59 Last Admin: 02/12/19 08:32 Dose: 5 mls/min Documented by: [id number] Admin: 02/11/19 08:28 Dose: 5 mls/min Documented by: [id number] Admin: 02/10/19 07:43 Dose: 5 mls/min Documented by: [id number] Admin: 02/09/19 08:37 Dose: 5 mls/min Documented by: [id number] Admin: 02/08/19 08:20 Dose: 5 mls/min Documented by: [id number] Admin: 02/07/19 10:46 Dose: 5 mls/min Documented by: [id number] Ceftriaxone Sodium 2,000 mg/ (Dextrose) 70 mls @ 140 mls/hr IV Q24H [facility]; Protocol Stop: 02/26/19 15:59 Last Infusion: 02/12/19 17:17 Dose: 0 mls/hr Documented by: [id number] Admin: 02/12/19 16:31 Dose: 140 mls/hr Documented by: [id number] Furosemide 15 mg/ Albumin (Human) 51.5 mls @ 60 mls/hr IV Q8H [facility] Stop: 02/14/19 10:52 Last Infusion: 02/13/19 02:55 Dose: 0 mls/hr Documented by: [id number] Admin: 02/13/19 02:06 Dose: 60 mls/hr Documented by: [id number] Infusion: 02/12/19 18:16 Dose: 0 mls/hr Documented by: [id number] Admin: 02/12/19 17:17 Dose: 60 mls/hr Documented by: [id number] Furosemide 15 mg/ Albumin (Human) 51.5 mls @ 60 mls/hr IV Q8H [facility] Stop: 02/14/19 09:52 Last Infusion: 02/13/19 02:05 Dose: 0 mls/hr Documented by: [id number] Admin: 02/13/19 01:31 Dose: 60 mls/hr Documented by: [id number] Infusion: 02/12/19 17:23 Dose: 0 mls/hr Documented by: [id number] Admin: 02/12/19 16:44 Dose: 60 mls/hr Documented by: [id number] Famotidine 20 mg/ Syringe 5 mls @ 2.5 mls/min IV BID [facility] Stop: 03/14/19 20:59 Last Admin: 02/13/19 00:30 Dose: 2.5 mls/min Documented by: [id number] Thiamine HCl 500 mg/ Sodium (Chloride) 55 mls @ 208 mls/hr IV Q8H [facility] Stop: 02/14/19 14:16 Last Infusion: 02/13/19 06:13 Dose: 0 mls/hr Documented by: [id number] Admin: 02/13/19 05:19 Dose: 60 mls/hr Documented by: [id number] Infusion: 02/13/19 00:52 Dose: 0 mls/hr Documented by: [id number] Admin: 02/13/19 00:31 Dose: 208 mls/hr Documented by: [id number] Propofol (Diprivan) 1,000 mg in 100 mls @ 21.627 mls/hr IV .Q4H38M PRN; Protocol PRN Reason: Titration Stop: 02/16/19 00:06 Last Titration: 02/13/19 07:08 Dose: 45 mcg/kg/min, 21.6 mls/hr Documented by: [id number] Cosigned by: [id number] Admin: 02/13/19 05:52 Dose: 45 mcg/kg/min, 21.6 mls/hr Documented by: [id number] Cosigned by: [id number] Titration: 02/13/19 05:30 Dose: 45 mcg/kg/min, 21.6 mls/hr Documented by: [id number] Cosigned by: [id number] Titration: 02/13/19 04:00 Dose: 45 mcg/kg/min, 21.6 mls/hr Documented by: [id number] Titration: 02/13/19 03:21 Dose: 40 mcg/kg/min, 19.2 mls/hr Documented by: [id number] Titration: 02/13/19 02:23 Dose: 35 mcg/kg/min, 16.8 mls/hr Documented by: [id number] Admin: 02/12/19 23:40 Dose: 30 mcg/kg/min, 14.4 mls/hr Documented by: [id number] Cosigned by: [id number] Lidocaine (Lidoderm 5%) 1 patch TD QAM [facility] Stop: 03/07/19 09:44 Last Admin: 02/12/19 08:32 Dose: 1 patch Documented by: [id number] Admin: 02/11/19 08:25 Dose: 1 patch Documented by: [id number] Admin: 02/10/19 07:42 Dose: 1 patch Documented by: [id number] Admin: 02/09/19 08:37 Dose: 1 patch Documented by: [id number] Admin: 02/08/19 08:20 Dose: Not Given Documented by: [id number] Admin: 02/07/19 08:40 Dose: 1 patch Documented by: [id number] Admin: 02/06/19 07:39 Dose: 1 patch Documented by: [id number] Admin: 02/05/19 10:30 Dose: 1 patch Documented by: [id number] Miscellaneous (Remove Lidoderm Patch) 1 ea N/A DAILY@2100 [facility] Stop: 03/07/19 20:59 Last Admin: 02/13/19 00:33 Dose: Not Given Documented by: [id number] Admin: 02/11/19 19:54 Dose: 1 ea Documented by: [id number] Admin: 02/10/19 21:33 Dose: Not Given Documented by: [id number] Admin: 02/09/19 20:34 Dose: 1 ea Documented by: [id number] Admin: 02/08/19 20:17 Dose: Not Given Documented by: [id number] Admin: 02/07/19 21:21 Dose: 1 ea Documented by: [id number] Admin: 02/06/19 22:12 Dose: Not Given Documented by: [id number] Admin: 02/05/19 21:25 Dose: 1 ea Documented by: [id number] Miscellaneous (Check Clonidine Patch) 1 ea N/A QS [facility] Stop: 03/09/19 00:00 Last Admin: 02/13/19 07:49 Dose: 1 ea Documented by: [id number] Admin: 02/13/19 00:51 Dose: Not Given Documented by: [id number] Admin: 02/12/19 16:37 Dose: 1 ea Documented by: [id number] Admin: 02/12/19 08:31 Dose: 1 ea Documented by: [id number] Admin: 02/12/19 03:47 Dose: 1 ea Documented by: [id number] Admin: 02/11/19 15:37 Dose: 1 ea Documented by: [id number] Admin: 02/11/19 08:24 Dose: 1 ea Documented by: [id number] Admin: 02/11/19 01:17 Dose: 1 ea Documented by: [id number] Admin: 02/10/19 16:30 Dose: 1 ea Documented by: [id number] Admin: 02/10/19 07:41 Dose: 1 ea Documented by: [id number] Admin: 02/09/19 23:55 Dose: 1 ea Documented by: [id number] Admin: 02/09/19 14:06 Dose: 1 ea Documented by: [id number] Admin: 02/09/19 08:27 Dose: 1 ea Documented by: [id number] Admin: 02/08/19 23:43 Dose: 1 ea Documented by: [id number] Admin: 02/08/19 16:32 Dose: 1 ea Documented by: [id number] Admin: 02/08/19 08:19 Dose: 1 ea Documented by: [id number] Admin: 02/08/19 00:31 Dose: 1 ea Documented by: [id number] Admin: 02/07/19 15:44 Dose: 1 ea Documented by: [id number] Admin: 02/07/19 08:46 Dose: 1 ea Documented by: [id number] Admin: 02/07/19 00:22 Dose: 1 ea Documented by: [id number] Discontinued Medications Aspirin (Aspirin Chew) 324 mg PO NOW STA Stop: 02/08/19 01:45 Last Admin: 02/08/19 02:29 Dose: 324 mg Documented by: [id number] Aspirin (Ecotrin Ectab) 81 mg PO QAM [facility] Stop: 03/10/19 08:59 Last Admin: 02/12/19 08:32 Dose: 81 mg Documented by: [id number] Admin: 02/11/19 08:25 Dose: 81 mg Documented by: [id number] Admin: 02/10/19 07:42 Dose: 81 mg Documented by: [id number] Admin: 02/09/19 08:31 Dose: 81 mg Documented by: [id number] Admin: 02/08/19 08:21 Dose: Not Given Documented by: [id number] Doxycycline Hyclate (Vibramycin) 100 mg PO BID [facility] Stop: 02/12/19 08:59 Last Admin: 02/05/19 08:14 Dose: 100 mg Documented by: [id number] Etomidate (Amidate) 20 mg IV NOW ONE Stop: 02/12/19 18:36 Last Admin: 02/12/19 18:43 Dose: 20 mg Documented by: [id number] Fentanyl Citrate (Fentanyl Citrate) 50 mcg IV NOW STA Stop: 02/05/19 00:35 Last Admin: 02/05/19 00:49 Dose: 50 mcg Documented by: [id number] Gadobutrol (Gadavist 65ml) 7 ml IV ONCE PRN PRN Reason: Interaction Checking Stop: 02/12/19 12:18 Last Admin: 02/08/19 12:19 Dose: 7 ml Documented by: [id number] Hydralazine HCl (Hydralazine Hcl) 10 mg IV NOW STA Stop: 02/06/19 20:47 Last Admin: 02/06/19 21:11 Dose: 10 mg Documented by: [id number] Sodium Chloride (Nss 1000ml) 1,000 mls @ 999 mls/hr IV .Q1H1M ONE Stop: 02/05/19 01:34 Last Infusion: 02/05/19 02:08 Dose: 0 mls/hr Documented by: [id number] Admin: 02/05/19 00:50 Dose: 999 mls/hr Documented by: [id number] Sodium Chloride (Nss 1000ml) 1,000 mls @ 999 mls/hr IV .Q1H1M ONE Stop: 02/05/19 02:36 Last Infusion: 02/05/19 03:39 Dose: 0 mls/hr Documented by: [id number] Admin: 02/05/19 02:21 Dose: 999 mls/hr Documented by: [id number] Ceftriaxone Sodium (Rocephin) 1,000 mg in 50 mls @ 100 mls/hr IV NOW STA Stop: 02/05/19 03:06 Last Infusion: 02/05/19 04:00 Dose: 0 mls/hr Documented by: [id number] Admin: 02/05/19 03:30 Dose: 100 mls/hr Documented by: [id number] Sodium Chloride (Nss 1000ml) 1,000 mls @ 200 mls/hr IV .Q5H [facility] Stop: 03/07/19 05:20 Last Infusion: 02/06/19 10:30 Dose: 0 mls/hr Documented by: [id number] Admin: 02/06/19 09:29 Dose: 200 mls/hr Documented by: [id number] Infusion: 02/06/19 09:29 Dose: 200 mls/hr Documented by: [id number] Admin: 02/06/19 04:30 Dose: 200 mls/hr Documented by: [id number] Infusion: 02/06/19 02:24 Dose: 200 mls/hr Documented by: [id number] Admin: 02/05/19 21:24 Dose: 200 mls/hr Documented by: [id number] Infusion: 02/05/19 20:49 Dose: 200 mls/hr Documented by: [id number] Admin: 02/05/19 15:49 Dose: 200 mls/hr Documented by: [id number] Infusion: 02/05/19 15:42 Dose: 0 mls/hr Documented by: [id number] Admin: 02/05/19 10:33 Dose: 200 mls/hr Documented by: [id number] Infusion: 02/05/19 10:33 Dose: 200 mls/hr Documented by: [id number] Admin: 02/05/19 05:45 Dose: 200 mls/hr Documented by: [id number] Aztreonam 2,000 mg/ Dextrose 110 mls @ 100 mls/hr IV TODAY@0600 [facility]; Protocol Stop: 02/05/19 07:05 Last Infusion: 02/05/19 07:04 Dose: 0 mls/hr Documented by: [id number] Admin: 02/05/19 05:52 Dose: 100 mls/hr Documented by: [id number] Vancomycin HCl 1,500 mg/ (Sodium Chloride) 530 mls @ 200 mls/hr IV TODAY@0530 [facility] Stop: 02/05/19 08:08 Last Infusion: 02/05/19 08:29 Dose: 0 mls/hr Documented by: [id number] Admin: 02/05/19 05:46 Dose: 200 mls/hr Documented by: [id number] Vancomycin HCl 1,000 mg/ (Sodium Chloride) 270 mls @ 125 mls/hr IV Q18H [facility]; Protocol Stop: 02/16/19 00:00 Last Infusion: 02/06/19 03:06 Dose: 0 mls/hr Documented by: [id number] Admin: 02/06/19 00:52 Dose: 125 mls/hr Documented by: [id number] Aztreonam 1,000 mg/ Dextrose 110 mls @ 110 mls/hr IV Q8H [facility]; Protocol Stop: 02/15/19 13:59 Last Infusion: 02/07/19 06:19 Dose: 0 mls/hr Documented by: [id number] Admin: 02/07/19 05:20 Dose: 110 mls/hr Documented by: [id number] Infusion: 02/06/19 23:21 Dose: 0 mls/hr Documented by: [id number] Admin: 02/06/19 22:12 Dose: 110 mls/hr Documented by: [id number] Infusion: 02/06/19 15:45 Dose: 0 mls/hr Documented by: [id number] Admin: 02/06/19 14:29 Dose: 110 mls/hr Documented by: [id number] Infusion: 02/06/19 07:25 Dose: 0 mls/hr Documented by: [id number] Admin: 02/06/19 05:55 Dose: 110 mls/hr Documented by: [id number] Infusion: 02/05/19 16:52 Dose: 0 mls/hr Documented by: [id number] Admin: 02/05/19 15:43 Dose: 110 mls/hr Documented by: [id number] Infusion: 02/05/19 15:43 Dose: 110 mls/hr Documented by: [id number] Admin: 02/05/19 15:42 Dose: 110 mls/hr Documented by: [id number] Lactated Ringer's (Lr) 1,000 mls @ 125 mls/hr IV .Q8H [facility] Stop: 03/08/19 10:29 Last Infusion: 02/06/19 22:55 Dose: 0 mls/hr Documented by: [id number] Infusion: 02/06/19 22:47 Dose: 0 mls/hr Documented by: [id number] Admin: 02/06/19 18:00 Dose: 125 mls/hr Documented by: [id number] Infusion: 02/06/19 18:00 Dose: 125 mls/hr Documented by: [id number] Admin: 02/06/19 10:38 Dose: 125 mls/hr Documented by: [id number] Vancomycin HCl 1,000 mg/ (Sodium Chloride) 270 mls @ 125 mls/hr IV Q16H [facility]; Protocol Stop: 02/16/19 00:00 Last Infusion: 02/07/19 12:32 Dose: 0 mls/hr Documented by: [id number] Admin: 02/07/19 08:39 Dose: 125 mls/hr Documented by: [id number] Infusion: 02/06/19 20:10 Dose: 0 mls/hr Documented by: [id number] Admin: 02/06/19 16:31 Dose: 125 mls/hr Documented by: [id number] Lorazepam (Ativan) 0.5 mg in 1 mls @ 1 mls/min IV NOW STA Stop: 02/06/19 16:31 Last Admin: 02/06/19 17:12 Dose: 1 mls/min Documented by: [id number] Lorazepam (Ativan) 0.5 mg in 1 mls @ 0.5 mls/min IV Q2H PRN PRN Reason: Agitation Stop: 03/08/19 20:39 Last Admin: 02/12/19 10:52 Dose: 0.5 mls/min Documented by: [id number] Admin: 02/11/19 23:40 Dose: 0.5 mls/min Documented by: [id number] Admin: 02/09/19 08:30 Dose: 0.5 mls/min Documented by: [id number] Dextrose/Sodium Chloride (D5w And Nss) 1,000 mls @ 50 mls/hr IV .Q20H [facility] Stop: 03/08/19 20:44 Last Infusion: 02/09/19 08:38 Dose: 0 mls/hr Documented by: [id number] Infusion: 02/08/19 17:26 Dose: 50 mls/hr Documented by: [id number] Admin: 02/08/19 16:31 Dose: 100 mls/hr Documented by: [id number] Infusion: 02/08/19 16:29 Dose: 100 mls/hr Documented by: [id number] Admin: 02/08/19 06:29 Dose: 100 mls/hr Documented by: [id number] Infusion: 02/08/19 06:29 Dose: 100 mls/hr Documented by: [id number] Admin: 02/07/19 21:19 Dose: 100 mls/hr Documented by: [id number] Infusion: 02/07/19 19:54 Dose: 125 mls/hr Documented by: [id number] Admin: 02/07/19 11:54 Dose: 125 mls/hr Documented by: [id number] Infusion: 02/07/19 11:54 Dose: 125 mls/hr Documented by: [id number] Admin: 02/07/19 03:55 Dose: 125 mls/hr Documented by: [id number] Infusion: 02/07/19 03:55 Dose: 125 mls/hr Documented by: [id number] Admin: 02/06/19 21:16 Dose: 125 mls/hr Documented by: [id number] Folic Acid 1 mg/ Syringe 10 mls @ 5 mls/min IV NOW STA Stop: 02/06/19 20:43 Last Admin: 02/06/19 21:15 Dose: 5 mls/min Documented by: [id number] Thiamine HCl 100 mg/ Syringe 10 mls @ 2 mls/min IV NOW STA Stop: 02/06/19 20:46 Last Admin: 02/06/19 21:15 Dose: 2 mls/min Documented by: [id number] Lorazepam (Ativan) 1 mg in 2 mls @ 2 mls/min IV NOW STA Stop: 02/06/19 20:46 Last Admin: 02/06/19 21:11 Dose: 2 mls/min Documented by: [id number] Ceftriaxone Sodium 2,000 mg/ (Dextrose) 70 mls @ 100 mls/hr IV Q24H [facility]; Protocol Stop: 02/21/19 14:59 Last Infusion: 02/11/19 16:19 Dose: 0 mls/hr Documented by: [id number] Admin: 02/11/19 15:37 Dose: 100 mls/hr Documented by: [id number] Infusion: 02/10/19 17:09 Dose: 0 mls/hr Documented by: [id number] Admin: 02/10/19 16:27 Dose: 100 mls/hr Documented by: [id number] Infusion: 02/09/19 14:44 Dose: 0 mls/hr Documented by: [id number] Admin: 02/09/19 14:06 Dose: 100 mls/hr Documented by: [id number] Infusion: 02/08/19 15:29 Dose: 0 mls/hr Documented by: [id number] Admin: 02/08/19 14:47 Dose: 100 mls/hr Documented by: [id number] Infusion: 02/07/19 17:01 Dose: 0 mls/hr Documented by: [id number] Admin: 02/07/19 15:43 Dose: 100 mls/hr Documented by: [id number] Lactated Ringer's (Lr) 1,000 mls @ 500 mls/hr IV .Q2H ONE Stop: 02/09/19 08:55 Last Infusion: 02/09/19 10:48 Dose: 0 mls/hr Documented by: [id number] Admin: 02/09/19 08:27 Dose: 500 mls/hr Documented by: [id number] Lactated Ringer's (Lr) 1,000 mls @ 125 mls/hr IV .Q8H [facility] Stop: 03/11/19 08:59 Last Admin: 02/10/19 17:58 Dose: Not Given Documented by: [id number] Infusion: 02/10/19 17:57 Dose: 0 mls/hr Documented by: [id number] Admin: 02/10/19 11:45 Dose: 125 mls/hr Documented by: [id number] Infusion: 02/10/19 11:02 Dose: 125 mls/hr Documented by: [id number] Infusion: 02/10/19 08:29 Dose: 125 mls/hr Documented by: [id number] Admin: 02/09/19 23:55 Dose: 80 mls/hr Documented by: [id number] Infusion: 02/09/19 23:52 Dose: 80 mls/hr Documented by: [id number] Infusion: 02/09/19 14:43 Dose: 80 mls/hr Documented by: [id number] Infusion: 02/09/19 14:07 Dose: 0 mls/hr Documented by: [id number] Admin: 02/09/19 10:46 Dose: 80 mls/hr Documented by: [id number] Furosemide 20 mg/ Syringe 2 mls @ 4 mls/min IV ONE ONE Stop: 02/12/19 08:01 Last Admin: 02/12/19 08:35 Dose: 4 mls/min Documented by: [id number] Calcium Gluconate 1,000 mg/ (Sodium Chloride) 60 mls @ 240 mls/hr IV NOW STA Stop: 02/12/19 14:20 Last Infusion: 02/12/19 15:00 Dose: 0 mls/hr Documented by: [id number] Admin: 02/12/19 14:34 Dose: 240 mls/hr Documented by: [id number] Furosemide 20 mg/ Syringe 2 mls @ 4 mls/min IV ONE ONE Stop: 02/12/19 14:46 Last Admin: 02/12/19 14:58 Dose: Not Given Documented by: [id number] Aztreonam 2,000 mg/ Dextrose 110 mls @ 110 mls/hr IV TODAY@1600 [facility] Stop: 02/12/19 18:00 Last Infusion: 02/12/19 17:42 Dose: 0 mls/hr Documented by: [id number] Admin: 02/12/19 16:36 Dose: 110 mls/hr Documented by: [id number] Propofol (Diprivan) 1,000 mg in 100 mls @ 2.403 mls/hr IV .Q24H [facility]; Protocol Stop: 02/13/19 18:31 Last Titration: 02/13/19 01:59 Dose: 0 mcg/kg/min, 0 mls/hr Documented by: [id number] Admin: 02/12/19 18:42 Dose: 5 mcg/kg/min, 2.4 mls/hr Documented by: [id number] Cosigned by: [id number] Ioversol (Optiray 320 125ml) 125 ml IV ONCE PRN PRN Reason: Interaction Checking Stop: 02/12/19 01:17 Last Admin: 02/08/19 01:18 Dose: 118 ml Documented by: [id number] Lidocaine HCl (Xylocaine 1% (Local)) Confirm Administered Dose 20 ml .ROUTE .STK-MED ONE Stop: 02/12/19 19:21 Last Admin: 02/13/19 00:53 Dose: Not Given Documented by: [id number] Miscellaneous () Confirm Administered Dose 1 ea .ROUTE .STK-MED ONE Stop: 02/12/19 18:20 Last Admin: 02/12/19 18:43 Dose: 1 ea Documented by: [id number] Morphine Sulfate (Morphine Sulfate) 4 mg IV NOW STA Stop: 02/05/19 02:17 Last Admin: 02/05/19 02:21 Dose: 4 mg Documented by: [id number] Morphine Sulfate (Morphine Sulfate) 3 mg IV Q3H PRN PRN Reason: Pain Stop: 02/19/19 05:20 Last Admin: 02/05/19 05:46 Dose: 3 mg Documented by: [id number] Morphine Sulfate (Morphine Sulfate) Confirm Administered Dose 4 mg .ROUTE .STK- MED ONE Stop: 02/05/19 05:25 Last Admin: 02/05/19 05:49 Dose: Not Given Documented by: [id number] Multivitamins (Multivitamin Tab) 1 tab PO DAILY [facility] Stop: 03/07/19 08:59 Last Admin: 02/05/19 08:15 Dose: 1 tab Documented by: [id number] Sodium Polystyrene Sulfonate (Kayexalate) 15 gm PO NOW STA Stop: 02/12/19 14:03 Last Admin: 02/12/19 14:43 Dose: 15 gm Documented by: [id number] Vecuronium [place] (Norcuron) 6.6 mg 0.1 mg/kg (6.6 mg) IV ONCE STA Stop: 02/12/19 19:07 Last Admin: 02/12/19 19:15 Dose: Not Given Documented by: [id number] Vitamin B Complex (Vitamin B Complex) 1 tab PO DAILY DEBRA Stop: 03/07/19 08:59 Last Admin: 02/05/19 08:14 Dose: 1 tab Documented by: [id number] Description This is a 21 electrode EEG with a single channel dedicated to limited EKG. The electrodes were placed in accordance with the International 10-20 system. Interpretation The predominant background activity consists of a fairly very well modulated 11 Hz activity, of up to 40 mV in amplitude,seen symmetrically distributed over the posterior head regions bilaterally. This activity attenuates nicely with eye- opening and other alerting procedures. Photic stimulation was performed and elicited no change in the background activity and no abnormal responses were seen. Hyperventilation was not performed. A moderate amount of muscle and movement artifact activity contaminated the recording, injuring interpretation from time to time but not to any significant degree overall. Throughout the waking portion of the recording, no focal abnormalities, abnormal slow activity, or potentially epileptogenic discharges were seen. The patient entered the drowsy state and brief periods of stage II sleep with no further activation. In summary, this EEG was normal during wakefulness and sleep. No focal abnormalities, potentially epileptogenic discharges, or abnormal slow activity was seen. Clinical Correlation The absence of potentially epileptogenic activity does not exclude a seizure disorder, since interictally, EEGs can be normal. Clinical correlation is required. [facility] EEG Procedure Codes Indication for Procedure (1) Acute encephalopathy: (2) Severe sepsis with acute organ dysfunction: Neurology Neurology: 68922 EEG include record awake & sleepy
[2019-02-13] MEDS: FOLIC ACID 1 MG in SYRINGE 9.8 ML IV SCH (08:20)
[2019-02-13] MEDS: LIDOCAINE 5% 1 PATCH TD SCH (08:21)
[2019-02-13] MEDS ORDERED: NOVASOURCE RENAL 2.0 CAL 1000ML BAG GT SCH (09:00)
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
--- NOTE | 2019-02-13 09:57 | Nephrology Progress Note ---
Date of Service February 13, 2019 Assessment & Plan (1) Acute kidney injury: Patient with acute kidney injury likely multifactorial including ischemic ATN from sepsis and toxic ATN from contrast-induced nephropathy. It appears patient had ATN initially which was improving but a contrast load on 02/08/2019 may have exacerbated his renal injury. Ultrasound does not show obstructive uropathy. He has hepatitis C and could have glomerulonephritis although the timing of rise in renal function likely suggests contrast-induced nephropathy. Patient is grossly volume overload complicated by hypoalbuminemia. No indication for dialysis today. Patient is nonoliguric. -IV Lasix 30 mg 3 times daily. Please give Lasix together with albumin 25 g 3 times daily to help with diuresis -Monitor renal function with daily BMP. -Avoid further nephrotoxins such as contrast and NSAIDs unless lifesaving. -Patient remains acutely ill on mechanical ventilation (2) Sepsis secondary to UTI: Due to MSSA bacteremia. Patient will continue Rocephin per infectious disease and primary team. Renally dose antibiotics for current GFR. (3) Hepatitis C antibody positive in blood: Patient with hep C infection. 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 I will hold off on other work-up for GN for now given high suspicion for contrast- induced nephropathy. Patient will need treatment for his hep C although this can be done as an outpatient. (4) Hypoalbuminemia due to protein-calorie malnutrition: Patient with an adequate intake. He needs an NG tube and tube feeds. Consider Nepro starting at 30 mL/h with a target of 80 mL/h. Subjective Patient seen this morning in the ICU. He is now intubated on mechanical ventilation. Unable to obtain history due to intubation. 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 Gastrointestinal: Abdomen is soft, non distended, non tender, bowel sounds are present CVS: Regular rate and rhythm. No murmurs, rubs or gallops Musculoskeletal: No joint or muscle tenderness Extremities: Non tender, 2+ edema, peripheral pulses are present Neuro: Sedated Skin: No rashes Results & Data Vital Signs (Past 12 Hours) Vital Signs Pulse Resp BP Pulse Ox 02/13/19 07:33 90 14 100 02/13/19 07:01 89 114/64 100 02/13/19 07:00 89 100 02/13/19 06:30 94 H 100 02/13/19 06:01 95 H 123/67 100 02/13/19 06:00 95 H 100 02/13/19 05:30 100 H 100 02/13/19 05:01 96 H 111/65 100 02/13/19 05:00 97 H 14 100 02/13/19 04:30 98 H 100 02/13/19 04:15 100 H 100 02/13/19 04:01 101 H 113/62 100 02/13/19 04:00 101 H 100 02/13/19 03:45 104 H 100 02/13/19 03:30 101 H 100 02/13/19 03:15 102 H 100 02/13/19 03:01 102 H 119/65 100 02/13/19 03:00 102 H 100 02/13/19 02:45 100 H 100 02/13/19 02:30 100 H 100 02/13/19 02:01 97 H 136/75 100 02/13/19 02:00 96 H 100 02/13/19 01:30 101 H 100 02/13/19 01:15 101 H 18 100 02/13/19 01:01 100 H 136/82 100 02/13/19 01:00 100 H 100 02/13/19 00:30 92 H 99 02/13/19 00:11 94 H 117/72 98 02/13/19 00:01 100 H 125/77 97 02/13/19 00:00 98 H 99 02/12/19 23:53 100 H 140/85 02/12/19 23:40 99 H 18 100 02/12/19 22:52 106 H 15 100 02/12/19 22:05 104 H 16 98 Laboratory Results Laboratory Results - last 24 hr 02/12/19 02/12/19 02/12/19 12:55 18:06 18:06 WBC 13.76 H RBC 3.04 L Hgb 9.4 L Hct 28.1 L MCV 92.4 MCH 30.9 MCHC 33.5 RDW Std Deviation 49.6 H RDW Coeff of Amari 14.7 H Plt Count 231 MPV 10.1 Immature Gran % (Auto) 0.4 Neut % (Auto) 89.4 Lymph % (Auto) 5.2 [place] % (Auto) 4.9 Eos % (Auto) 0.0 Baso % (Auto) 0.1 Reticulocyte % (Auto) Immature Gran # (Auto) 0.06 H Neut # (Auto) 12.29 H Lymph # (Auto) 0.72 L [place] # (Auto) 0.68 H Eos # (Auto) 0.00 Baso # (Auto) 0.01 Reticulocyte # Toxic Granulation 1+ Toxic Vacuolation 1+ Dohle Bodies 1+ Tear Drop Cells Occasional Echinocytes 2+ ESR PT INR APTT PTT Ratio Fibrinogen Sample Site POC pH POC pCO2 POC pO2 POC HCO3 POC Total CO2 POC Base Excess ABG pH (Temp Correct) ABG pCO2 (Temp Corrct POC ABG pO2 at Pt Temp POC ABG O2 Sat Ja Test O2 Delivery Device POC O2 Rate Minute Ventilation Tidal Volume PEEP Sodium 134 L 134 L Potassium 5.8 H 5.3 H Chloride 106 105 Carbon Dioxide 18 L 18 L Anion Gap 10.0 11.0 BUN 104 H 102 H Creatinine 1.95 H 1.90 H Est Cr Clr Drug Dosing 39.8 40.9 Est GFR ( Amer) 41.5 42.8 Est GFR (Non-Af Amer) 35.8 37.0 BUN/Creatinine Ratio 53.3 H 53.8 H Glucose 91 106 H POC Glucose Calcium 6.8 L 7.4 L Phosphorus Iron TIBC Transferrin Ferritin Ammonia Total Creatine Kinase Prealbumin Tumor Marker AFP Vitamin B12 Folate Procalcitonin TSH Random Cortisol CSF Lyme IgG (Immblot) CSF Lyme IgG Bands Det CSF Lyme IgM (Immblot) CSF Lyme IgM Bands Det Pleural Fluid Source Pleural Color Pleural Appearance Pleural WBC Pleural RBC Pleural Polynuclear % Pleural Mononuclear % Nasal Screen MRSA (PCR) Rheumatoid Factor DEJA Screen Blood Type Antibody Screen 02/12/19 02/12/19 02/12/19 18:06 18:06 18:06 WBC RBC Hgb Hct MCV MCH MCHC RDW Std Deviation RDW Coeff of Amari Plt Count MPV Immature Gran % (Auto) Neut % (Auto) Lymph % (Auto) [place] % (Auto) Eos % (Auto) Baso % (Auto) Reticulocyte % (Auto) 1.5 Immature Gran # (Auto) Neut # (Auto) Lymph # (Auto) [place] # (Auto) Eos # (Auto) Baso # (Auto) Reticulocyte # 0.05 Toxic Granulation Toxic Vacuolation Dohle Bodies Tear Drop Cells Echinocytes ESR 52 H PT INR APTT PTT Ratio Fibrinogen Sample Site POC pH POC pCO2 POC pO2 POC HCO3 POC Total CO2 POC Base Excess ABG pH (Temp Correct) ABG pCO2 (Temp Corrct POC ABG pO2 at Pt Temp POC ABG O2 Sat Ja Test O2 Delivery Device POC O2 Rate Minute Ventilation Tidal Volume PEEP Sodium Potassium Chloride Carbon Dioxide Anion Gap BUN Creatinine Est Cr Clr Drug Dosing Est GFR ( Amer) Est GFR (Non-Af Amer) BUN/Creatinine Ratio Glucose POC Glucose Calcium Phosphorus Iron 17 L TIBC 143 L Transferrin 83 L Ferritin 751.5 H Ammonia Total Creatine Kinase 33 L Prealbumin 8.8 L Tumor Marker AFP Vitamin B12 Folate Procalcitonin TSH 2.720 Random Cortisol CSF Lyme IgG (Immblot) CSF Lyme IgG Bands Det CSF Lyme IgM (Immblot) CSF Lyme IgM Bands Det Pleural Fluid Source Pleural Color Pleural Appearance Pleural WBC Pleural RBC Pleural Polynuclear % Pleural Mononuclear % Nasal Screen MRSA (PCR) Rheumatoid Factor DEJA Screen Blood Type Antibody Screen 02/12/19 02/12/19 02/12/19 18:09 19:39 19:49 WBC RBC Hgb Hct MCV MCH MCHC RDW Std Deviation RDW Coeff of Amari Plt Count MPV Immature Gran % (Auto) Neut % (Auto) Lymph % (Auto) [place] % (Auto) Eos % (Auto) Baso % (Auto) Reticulocyte % (Auto) Immature Gran # (Auto) Neut # (Auto) Lymph # (Auto) [place] # (Auto) Eos # (Auto) Baso # (Auto) Reticulocyte # Toxic Granulation Toxic Vacuolation Dohle Bodies Tear Drop Cells Echinocytes ESR PT 13.0 H INR 1.3 H APTT 29.1 PTT Ratio 1.1 Fibrinogen 315 Sample Site POC pH POC pCO2 POC pO2 POC HCO3 POC Total CO2 POC Base Excess ABG pH (Temp Correct) ABG pCO2 (Temp Corrct POC ABG pO2 at Pt Temp POC ABG O2 Sat Ja Test O2 Delivery Device POC O2 Rate Minute Ventilation Tidal Volume PEEP Sodium Potassium Chloride Carbon Dioxide Anion Gap BUN Creatinine Est Cr Clr Drug Dosing Est GFR ( Amer) Est GFR (Non-Af Amer) BUN/Creatinine Ratio Glucose POC Glucose Calcium Phosphorus Iron TIBC Transferrin Ferritin Ammonia Total Creatine Kinase Prealbumin Tumor Marker AFP Vitamin B12 Folate Procalcitonin TSH Random Cortisol CSF Lyme IgG (Immblot) CSF Lyme IgG Bands Det CSF Lyme IgM (Immblot) CSF Lyme IgM Bands Det Pleural Fluid Source LEFT LUNG RIGHT LUNG Pleural Color STRAW STRAW Pleural Appearance HAZY HAZY Pleural WBC 318 266 Pleural RBC 4000 6000 Pleural Polynuclear % 48.2 43.1 Pleural Mononuclear % 51.8 56.9 Nasal Screen MRSA (PCR) Rheumatoid Factor DEJA Screen Blood Type Antibody Screen 02/12/19 02/12/19 02/13/19 23:54 Unknown 00:04 WBC RBC Hgb Hct MCV MCH MCHC RDW Std Deviation RDW Coeff of Amari Plt Count MPV Immature Gran % (Auto) Neut % (Auto) Lymph % (Auto) [place] % (Auto) Eos % (Auto) Baso % (Auto) Reticulocyte % (Auto) Immature Gran # (Auto) Neut # (Auto) Lymph # (Auto) [place] # (Auto) Eos # (Auto) Baso # (Auto) Reticulocyte # Toxic Granulation Toxic Vacuolation Dohle Bodies Tear Drop Cells Echinocytes ESR PT INR APTT PTT Ratio Fibrinogen Sample Site Art Line POC pH 7.38 POC pCO2 29 L POC pO2 164 H POC HCO3 17 L POC Total CO2 18 L POC Base Excess -8.0 ABG pH (Temp Correct) 7.387 ABG pCO2 (Temp Corrct 28 L POC ABG pO2 at Pt Temp 160 POC ABG O2 Sat 99.0 H Ja Test NA O2 Delivery Device Ventilator POC O2 Rate 14 Minute Ventilation 10.9 Tidal Volume 500 PEEP 5 Sodium Potassium Chloride Carbon Dioxide Anion Gap BUN Creatinine Est Cr Clr Drug Dosing Est GFR ( Amer) Est GFR (Non-Af Amer) BUN/Creatinine Ratio Glucose POC Glucose Calcium Phosphorus Iron TIBC Transferrin Ferritin Ammonia Total Creatine Kinase Prealbumin Tumor Marker AFP Vitamin B12 Folate Procalcitonin TSH Random Cortisol CSF Lyme IgG (Immblot) CSF Lyme IgG Bands Det CSF Lyme IgM (Immblot) CSF Lyme IgM Bands Det Pleural Fluid Source Pleural Color Pleural Appearance Pleural WBC Pleural RBC Pleural Polynuclear % Pleural Mononuclear % Nasal Screen MRSA (PCR) Negative Rheumatoid Factor DEJA Screen Blood Type B Negative Antibody Screen NEGATIVE 02/13/19 02/13/19 02/13/19 00:04 00:04 00:04 WBC RBC Hgb Hct MCV MCH MCHC RDW Std Deviation RDW Coeff of Amari Plt Count MPV Immature Gran % (Auto) Neut % (Auto) Lymph % (Auto) [place] % (Auto) Eos % (Auto) Baso % (Auto) Reticulocyte % (Auto) Immature Gran # (Auto) Neut # (Auto) Lymph # (Auto) [place] # (Auto) Eos # (Auto) Baso # (Auto) Reticulocyte # Toxic Granulation Toxic Vacuolation Dohle Bodies Tear Drop Cells Echinocytes ESR PT INR APTT PTT Ratio Fibrinogen Sample Site POC pH POC pCO2 POC pO2 POC HCO3 POC Total CO2 POC Base Excess ABG pH (Temp Correct) ABG pCO2 (Temp Corrct POC ABG pO2 at Pt Temp POC ABG O2 Sat Ja Test O2 Delivery Device POC O2 Rate Minute Ventilation Tidal Volume PEEP Sodium Potassium Chloride Carbon Dioxide Anion Gap BUN Creatinine Est Cr Clr Drug Dosing Est GFR ( Amer) Est GFR (Non-Af Amer) BUN/Creatinine Ratio Glucose POC Glucose Calcium Phosphorus Iron TIBC Transferrin Ferritin Ammonia 24.0 Total Creatine Kinase Prealbumin Tumor Marker AFP Vitamin B12 Folate Procalcitonin TSH Random Cortisol 12.47 CSF Lyme IgG (Immblot) Cancelled CSF Lyme IgG Bands Det Cancelled CSF Lyme IgM (Immblot) Cancelled CSF Lyme IgM Bands Det Cancelled Pleural Fluid Source Pleural Color Pleural Appearance Pleural WBC Pleural RBC Pleural Polynuclear % Pleural Mononuclear % Nasal Screen MRSA (PCR) Rheumatoid Factor Pending DEJA Screen Pending Blood Type Antibody Screen 02/13/19 02/13/19 02/13/19 00:04 00:04 00:12 WBC RBC Hgb Hct MCV MCH MCHC RDW Std Deviation RDW Coeff of Amari Plt Count MPV Immature Gran % (Auto) Neut % (Auto) Lymph % (Auto) [place] % (Auto) Eos % (Auto) Baso % (Auto) Reticulocyte % (Auto) Immature Gran # (Auto) Neut # (Auto) Lymph # (Auto) [place] # (Auto) Eos # (Auto) Baso # (Auto) Reticulocyte # Toxic Granulation Toxic Vacuolation Dohle Bodies Tear Drop Cells Echinocytes ESR PT INR APTT PTT Ratio Fibrinogen Sample Site POC pH POC pCO2 POC pO2 POC HCO3 POC Total CO2 POC Base Excess ABG pH (Temp Correct) ABG pCO2 (Temp Corrct POC ABG pO2 at Pt Temp POC ABG O2 Sat Ja Test O2 Delivery Device POC O2 Rate Minute Ventilation Tidal Volume PEEP Sodium Potassium Chloride Carbon Dioxide Anion Gap BUN Creatinine Est Cr Clr Drug Dosing Est GFR ( Amer) Est GFR (Non-Af Amer) BUN/Creatinine Ratio Glucose POC Glucose 98 Calcium Phosphorus Iron TIBC Transferrin Ferritin Ammonia Total Creatine Kinase Prealbumin Tumor Marker AFP Pending Vitamin B12 > 2000 H Folate 17.79 Procalcitonin TSH Random Cortisol CSF Lyme IgG (Immblot) CSF Lyme IgG Bands Det CSF Lyme IgM (Immblot) CSF Lyme IgM Bands Det Pleural Fluid Source Pleural Color Pleural Appearance Pleural WBC Pleural RBC Pleural Polynuclear % Pleural Mononuclear % Nasal Screen MRSA (PCR) Rheumatoid Factor DEJA Screen Blood Type Antibody Screen 02/13/19 02/13/19 02/13/19 04:29 04:29 04:29 WBC 11.79 H RBC 2.59 L Hgb 8.1 L Hct 24.2 L MCV 93.4 MCH 31.3 MCHC 33.5 RDW Std Deviation 50.0 H RDW Coeff of Amari 14.9 H Plt Count 208 MPV 9.6 Immature Gran % (Auto) Neut % (Auto) Lymph % (Auto) [place] % (Auto) Eos % (Auto) Baso % (Auto) Reticulocyte % (Auto) Immature Gran # (Auto) Neut # (Auto) Lymph # (Auto) [place] # (Auto) Eos # (Auto) Baso # (Auto) Reticulocyte # Toxic Granulation Toxic Vacuolation Dohle Bodies Tear Drop Cells Echinocytes ESR PT INR APTT PTT Ratio Fibrinogen Sample Site POC pH POC pCO2 POC pO2 POC HCO3 POC Total CO2 POC Base Excess ABG pH (Temp Correct) ABG pCO2 (Temp Corrct POC ABG pO2 at Pt Temp POC ABG O2 Sat Ja Test O2 Delivery Device POC O2 Rate Minute Ventilation Tidal Volume PEEP Sodium 136 Potassium 4.5 D Chloride 107 Carbon Dioxide 20 L Anion Gap 9.0 BUN 102 H Creatinine 1.70 H Est Cr Clr Drug Dosing 45.7 Est GFR ( Amer) 49.0 Est GFR (Non-Af Amer) 42.3 BUN/Creatinine Ratio 60.1 H Glucose 81 POC Glucose Calcium 7.0 L Phosphorus 6.4 H Iron TIBC Transferrin Ferritin Ammonia Total Creatine Kinase Prealbumin Tumor Marker AFP Vitamin B12 Folate Procalcitonin 0.83 H TSH Random Cortisol CSF Lyme IgG (Immblot) CSF Lyme IgG Bands Det CSF Lyme IgM (Immblot) CSF Lyme IgM Bands Det Pleural Fluid Source Pleural Color Pleural Appearance Pleural WBC Pleural RBC Pleural Polynuclear % Pleural Mononuclear % Nasal Screen MRSA (PCR) Rheumatoid Factor DEJA Screen Blood Type Antibody Screen 02/13/19 04:33 WBC RBC Hgb Hct MCV MCH MCHC RDW Std Deviation RDW Coeff of Amari Plt Count MPV Immature Gran % (Auto) Neut % (Auto) Lymph % (Auto) [place] % (Auto) Eos % (Auto) Baso % (Auto) Reticulocyte % (Auto) Immature Gran # (Auto) Neut # (Auto) Lymph # (Auto) [place] # (Auto) Eos # (Auto) Baso # (Auto) Reticulocyte # Toxic Granulation Toxic Vacuolation Dohle Bodies Tear Drop Cells Echinocytes ESR PT INR APTT PTT Ratio Fibrinogen Sample Site POC pH POC pCO2 POC pO2 POC HCO3 POC Total CO2 POC Base Excess ABG pH (Temp Correct) ABG pCO2 (Temp Corrct POC ABG pO2 at Pt Temp POC ABG O2 Sat Ja Test O2 Delivery Device POC O2 Rate Minute Ventilation Tidal Volume PEEP Sodium Potassium Chloride Carbon Dioxide Anion Gap BUN Creatinine Est Cr Clr Drug Dosing Est GFR ( Amer) Est GFR (Non-Af Amer) BUN/Creatinine Ratio Glucose POC Glucose 82 Calcium Phosphorus Iron TIBC Transferrin Ferritin Ammonia Total Creatine Kinase Prealbumin Tumor Marker AFP Vitamin B12 Folate Procalcitonin TSH Random Cortisol CSF Lyme IgG (Immblot) CSF Lyme IgG Bands Det CSF Lyme IgM (Immblot) CSF Lyme IgM Bands Det Pleural Fluid Source Pleural Color Pleural Appearance Pleural WBC Pleural RBC Pleural Polynuclear % Pleural Mononuclear % Nasal Screen MRSA (PCR) Rheumatoid Factor DEJA Screen Blood Type Antibody Screen
[2019-02-13] MEDS ORDERED: metroNIDAZOLE 500 MG/100 ML BAG IV SCH (10:00)
[2019-02-13] MEDS ORDERED: FUROSEMIDE 40 MG in SYRINGE 0 ML IV SCH (10:00)
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
--- NOTE | 2019-02-13 10:21 | Infectious Disease Progress Nt ---
Date of Service February 13, 2019 Assessment & Plan (1) Sepsis due to methicillin susceptible Staphylococcus aureus (MSSA) with acute hypercapnic respiratory failure and septic shock: continue abx follow repeat cultures, has evidence for metastatic infection - paraspinal abscess, ? c spine fluid collection. will need prolonged course of IV abx. Has HCV and + UDS suspect IVDA as source for infection. no evidence of veg on TTE, deemd too high risk for CESAR. continue supportive care suspect component of withdrawal for lehtargy. Subjective pt transferred to ICU, intubated, remained lethargic. now sedated on vent. remains on Rocephin. 02/09 blood cultures - 1 set + yesterday, repeat pending. underwent bronch and pleural fluid drainange, cultueres pending. Afebrile this am. wbc 11, creat 1.7. Had extensive imaging - MRI c spine (repeated) thoracic and lumbar spine and chest. found pleural effusion, new fluid collecteion at C5- C6 and hematoma at C1-C3. no osteo of spine noted, but several paraspinal abscesses noted. 02/12 left lung - 318 wbc, right lung 266 wbc. Review of Systems Review of Systems: Unobtainable due to endotracheal tube Physical Exam Constitutional: WD/WN, vitals as above + ill appearing and + disheveled Eyes: PERRL, conjunctivae normal, anicteric sclerae ENMT: intubated, ogt with bloody fluid Neck: normal visual inspection Respiratory: normal respiratory effort, lungs clear to auscultation Cardiovascular: Rate/Rhythm: regular rate Heart Sounds: no murmur Extremities: + pedal edema and + edema Gastrointestinal (Abdomen): normal bowel sounds, soft, nontender, no hepatospl enomegaly Musculoskeletal: no cyanosis or clubbing, extremities motor strength 5/5 Skin: no rashes, warm and dry Psychiatric: A+Ox3, euthymic affect Results & Data Vital Signs (Past 12 Hours) Vital Signs Pulse Resp BP Pulse Ox 02/13/19 09:30 87 100 02/13/19 09:01 87 113/64 100 02/13/19 09:00 86 100 02/13/19 08:30 88 100 02/13/19 08:01 88 117/66 100 02/13/19 08:00 90 100 09/16/19 07:33 90 14 100 02/13/19 07:30 89 100 02/13/19 07:01 89 114/64 100 02/13/19 07:00 89 100 02/13/19 06:30 94 H 100 02/13/19 06:01 95 H 123/67 100 02/13/19 06:00 95 H 100 02/13/19 05:30 100 H 100 02/13/19 05:01 96 H 111/65 100 02/13/19 05:00 97 H 14 100 02/13/19 04:30 98 H 100 02/13/19 04:15 100 H 100 02/13/19 04:01 101 H 113/62 100 02/13/19 04:00 101 H 100 02/13/19 03:45 104 H 100 02/13/19 03:30 101 H 100 02/13/19 03:15 102 H 100 02/13/19 03:01 102 H 119/65 100 02/13/19 03:00 102 H 100 02/13/19 02:45 100 H 100 02/13/19 02:30 100 H 100 02/13/19 02:01 97 H 136/75 100 02/13/19 02:00 96 H 100 02/13/19 01:30 101 H 100 02/13/19 01:15 101 H 18 100 02/13/19 01:01 100 H 136/82 100 02/13/19 01:00 100 H 100 02/13/19 00:30 92 H 99 02/13/19 00:11 94 H 117/72 98 02/13/19 00:01 100 H 125/77 97 02/13/19 00:00 98 H 99 02/12/19 23:53 100 H 140/85 02/12/19 23:40 99 H 18 100 02/12/19 22:52 106 H 15 100 Laboratory Results Microbiology 02/12/19 19:15 Bronch Wash,Right Middle Lobe Fungal Smear - Final 02/12/19 19:15 Bronch [place],Right Middle Lobe Gram Stain - Final 02/07/19 15:14 Blood Aerobic Blood Culture - Preliminary Staphylococcus aureus 02/07/19 15:14 Blood Anaerobic Blood Culture - Final No growth in Anaerobic bottle after 5 days. 02/07/19 14:55 Blood Aerobic Blood Culture - Preliminary Staphylococcus aureus 02/07/19 14:55 Blood Anaerobic Blood Culture - Final No growth in Anaerobic bottle after 5 days. 02/12/19 19:49 Pleural Fluid Gram Stain - Final 02/12/19 19:39 Pleural Fluid Gram Stain - Final 02/09/19 05:27 Blood Aerobic Blood Culture - Preliminary Staphylococcus aureus 02/09/19 05:27 Blood Anaerobic Blood Culture - Preliminary No growth in Anaerobic bottle after 48 hours. 02/06/19 10:46 Blood Aerobic Blood Culture - Final Staphylococcus aureus 02/06/19 10:46 Blood Anaerobic Blood Culture - Final No growth in Anaerobic bottle after 5 days. 02/06/19 10:39 Blood Aerobic Blood Culture - Final Staphylococcus aureus 02/06/19 10:39 Blood Anaerobic Blood Culture - Final No growth in Anaerobic bottle after 5 days. 02/09/19 05:36 Blood Aerobic Blood Culture - Preliminary No growth in Aerobic bottle after 48 hours. 02/09/19 05:36 Blood Anaerobic Blood Culture - Preliminary No growth in Anaerobic bottle after 48 hours. 02/08/19 10:43 Blood Aerobic Blood Culture - Preliminary Staphylococcus aureus 02/08/19 10:43 Blood Anaerobic Blood Culture - Preliminary No growth in Anaerobic bottle after 48 hours. 02/08/19 10:43 Blood Aerobic Blood Culture - Preliminary Staphylococcus aureus 02/08/19 10:43 Blood Anaerobic Blood Culture - Preliminary No growth in Anaerobic bottle after 48 hours. 02/07/19 20:40 Sputum, Expectorated Gram Stain - Final 02/07/19 20:40 Sputum, Expectorated Sputum Culture - Final Light normal lilia. 02/05/19 02:07 Urine,Clean Catch Urine Culture - Final Staphylococcus aureus 02/05/19 03:01 Blood Aerobic Blood Culture - Final Staphylococcus aureus 02/05/19 03:01 Blood Anaerobic Blood Culture - Final 02/05/19 02:50 Blood Aerobic Blood Culture - Final Staphylococcus aureus 02/05/19 02:50 Blood Anaerobic Blood Culture - Final Staphylococcus aureus PG Care Time/CCT Total # of Minutes Spent Total Time Spent with Patient: Total time spent is greater than 50% in coordination of care (as documented) at patient's floor/unit and/or counseling patient:
--- NOTE | 2019-02-13 12:18 | Critical Care Progress Note ---
Date of Service February 13, 2019 Assessment & Plan (1) Admitted to intensive care unit: Reason Critically Ill: 63-year-old male with multiple comorbidities and acute neuromuscular respiratory failure. PLAN: Neuro: Acute encephalopathy -Toxic metabolic versus infectious versus paraneoplastic -Ammonia within normal limits -Consideration given to lumbar puncture to facilitate work-up -In discussion with spinal surgery, there is a known space-occu pying lesion without significant compression of the cord, there is concern that if we drained a large amount of fluid this could allow the space-occupying lesion to expand and possibly compress the cord. Further the patient appears to be having issues with epistaxis and some bleeding especially in the setting of early azotemia, I believe the risks outweigh the benefits of performing a lumbar puncture at this time. Additionally there is concern that it could be an infectious etiology Acute musculoskeletal weakness: Given concerning spinal cord findings, patient will be transferred to a tertiary care center for higher level multidisciplinary interventions -Thoracic imaging demonstrates -1.7 cm intracanicular T2 hyperintense focus within the left aspect of the canal at T8-T9, diffuse marrow signal abnormality indicating proliferative versus replacement process -Lumbar imaging demonstrates -Multiple fluid collections within the right paraspinal musculature concerning for abscesses, signal characteristics do not favor hematoma -Cervical imaging demonstrates -Anterior epidural hematoma which extends from C1-C3, moderate cord compression, increased fluid signal in C5-C6 -Consideration given to nutritional deficits -Will load with thiamine for possible [place] -500 mg IV thiamine 3 times daily for 2 days then 200 mg there after Probable drug abuse -Urine drug screen positive for methamphetamine -Unclear how patient contracted hepatitis C -Multiple tattoos Resp: Acute neuromuscular weakness -Patient had a negative inspiratory force of -10, concern of aspiration Bilateral infiltrates on chest x-ray -Consistent with pleural effusions on ultrasound -Bilateral thoracentesis as per patient is persistently bacteremic to evaluate for possible empyema -Bronchoscopy undertaken to rule out pneumonia given atypical hospital course, persistent bacteremia -No evidence of diffuse alveolar hemorrhage on serial lavage Multiple pulmonary nodules -Follow-up CT scan CV: Abnormal EKG -Prolonged QTC on EKG dated February 07, 2019 -Incomplete right bundle branch block -Elevated troponins -Downtrending and in the setting of acute kidney injury -Patient may benefit from transesophageal echocardiography if we do not find a definitive source -Admittedly with a hyperdynamic echo and no obvious regurgitation in the chance of having significant valvular findings is lower -Likely will not tolerate the procedure Fluids/Renal: Presumed chronic bladder outlet obstruction -Based off of renal ultrasound February 10 in conjunction with nursing staff report of 1.5 L drained when Ruby catheter placed -Unclear if this may represent neurogenic bladder changes Acute kidney injury -Likely multifactorial -Changes consistent with acute tubular necrosis -Possible chronic bladder outlet obstruction Hyperkalemia -Improving with aggressive diuresis ID: Methicillin sensitive staph aureus bacteremia Methicillin sensitive staph aureus year urinary tract infection -Patient has yet to clear blood cultures -Unclear source of bacteremia -MRI of spine pending, question chronic changes in bladder -Reviewed infectious disease notes we will discontinue aztreonam as multiple blood cultures have not demonstrated gram-negative organism -Flagyl discontinued previously Rocephin 2 g every 24 hours -Day 7 ? Doxycycline 100 mg twice daily -Day 2? GI/Nutrition: Cirrhosis -New hepatitis C diagnosis -Sending alpha-fetoprotein as it is unclear how long this patient has hepatitis C -Meld score 18: Bilirubin improving Sarcopenia -Severe hypoalbuminemia -Severe muscle weakness -Increasing anasarca -Prealbumin pending -With airway secure will place course safe and start tube feeding -Novasource renal: Started 10 mL's continuous increasing by 10 mL's every 8 hours to goal of 30 continuous Heme: Anemia -Multifactorial with a component of anemia from chronic disease Epistaxis -Likely traumatic from NG placement Possible coagulopathy -Mildly elevated INR at 1.3 -Consideration given to azotemia and uremia DVT prophylaxis: Chemical prophylaxis contraindicated to epidural hematoma -SCDs Endocrine: ICU hyperglycemia protocol TSH and random cortisol pending Musculoskeletal: Acute right ninth and 10th rib fractures Right Psoas muscle changes on CT scan -Unable to obtain contrasted CT scan at this time due to renal insufficiency Possible discitis -MRI of spine obtained Spinal stenosis -Discussed case with Dr. Multani -Previously no significant evidence of cord compression or central cord contusion Vascular access: Left-sided radial arterial line placed February 12, 2019, right subclavian placed February 12, 2019 Code Status: Full code Thank you for allowing us to participate this patient's care. Please see my attending Dr. Ugarte's associated documentation for further details (2) Sepsis due to methicillin susceptible Staphylococcus aureus (MSSA) with acute hypercapnic respiratory failure and septic shock: (3) Acute encephalopathy: (4) Aspiration into airway: (5) Paraspinal abscess: (6) Central cord synd/C1-C4: (7) Pleural effusion on left: (8) Pleural effusion on right: (9) Metabolic encephalopathy: (10) Acute renal failure (ARF): Supervising Physician Co-Signing Physician Notes Patient seen and examined with resident-physician Dr. Raymond. I concur with the assessment and plan aside for any additions/exceptions noted: Cervical spine MRI performed which demonstrated anterior epidural hematoma extending from C1-C3 which has been present since February 08. Moderate cord compression was also seen which is similar to prior exam. There is increased fluid signal within the C5-C6 disc which may be indicative of early discitis. There is also evidence of paraspinal abscesses. Patient was intubated last night by the blanket weaver. Bronchoscopy and thoracentesis was also performed. Fluid and culture studies are pending. Given the patient's significant complexity and spinal processes including epidural hematomas and paraspinal abscesses, I feel the patient needs to be urgently transferred to a tertiary care center with interventional radiology and spinal neurosurgery available. Patient had a persistent bacteremia and it did not appear that these cultures were followed until clearance. We ordered for repeat cultures today. I added Flagyl to his antibiotics given the possibility of anaerobic organisms and his poor oral dentition. He likely needs a CESAR as well as the surface echo was unrevealing. The patient is very critically ill and requires urgent transfer. [facility] has accepted the transfer. Subjective Unable to obtain significant interval history secondary to patient's intubated status. Physical Exam Physical Exam: General: Ill-appearing male who appears older than stated age HEENT: Intubated Neck: Did not appreciate significant jugular venous distention Cardiac: Regular rate and rhythm, no murmurs rubs or gallops, distal pulses and capillary refill intact, no JVD Respiratory: Clear to auscultation bilaterally, nonlabored, no accessory muscle use, symmetrical chest rise, breath sounds are distant some rhonchi are present bilaterally. Difficult exam secondary to intubation GI: Soft, nondistended, bowel sounds present MSK: Unable to assess secondary to sedation Skin: Numerous bruises and ecchymosis Neuro: Currently intubated does not arouse to painful stimuli or loud noises Psych: Sedated Results & Data Vital Signs (Past 12 Hours) Vital Signs Pulse Resp BP Pulse Ox 02/13/19 07:33 90 14 100 02/13/19 07:01 89 114/64 100 02/13/19 07:00 89 100 02/13/19 06:30 94 H 100 02/13/19 06:01 95 H 123/67 100 02/13/19 06:00 95 H 100 02/13/19 05:30 100 H 100 02/13/19 05:01 96 H 111/65 100 02/13/19 05:00 97 H 14 100 02/13/19 04:30 98 H 100 02/13/19 04:15 100 H 100 02/13/19 04:01 101 H 113/62 100 02/13/19 04:00 101 H 100 02/13/19 03:45 104 H 100 02/13/19 03:30 101 H 100 02/13/19 03:15 102 H 100 02/13/19 03:01 102 H 119/65 100 02/13/19 03:00 102 H 100 02/13/19 02:45 100 H 100 02/13/19 02:30 100 H 100 02/13/19 02:01 97 H 136/75 100 02/13/19 02:00 96 H 100 02/13/19 01:30 101 H 100 02/13/19 01:15 101 H 18 100 02/13/19 01:01 100 H 136/82 100 02/13/19 01:00 100 H 100 02/13/19 00:30 92 H 99 02/13/19 00:11 94 H 117/72 98 02/13/19 00:01 100 H 125/77 97 02/13/19 00:00 98 H 99 02/12/19 23:53 100 H 140/85 02/12/19 23:40 99 H 18 100 02/12/19 22:52 106 H 15 100 02/12/19 22:05 104 H 16 98 02/12/19 21:28 100 H 14 99 Laboratory Results 02/13/19 02/13/19 02/13/19 Range/Units 04:33 04:29 04:29 WBC (4.8-10.8) K/uL RBC (4.7-6.1) M/uL Hgb (14.0-18.0) g/dL Hct (42-52) % MCV (80-100) fL MCH (25-34) pg MCHC (32-36) g/dL RDW Std Deviation (36.4-46.3) fL RDW Coeff of Amari (11.5-14.5) % Plt Count (130-400) K/uL MPV (7.4-10.4) fL Immature Gran % (Auto) % Neut % (Auto) % Lymph % (Auto) % [place] % (Auto) % Eos % (Auto) % Baso % (Auto) % Reticulocyte % (Auto) (0.5-2.0) % Immature Gran # (Auto) (0.00-0.02) K/uL Neut # (Auto) (1.4-6.5) K/uL Lymph # (Auto) (1.2-3.4) K/uL [place] # (Auto) (0.11-0.59) K/uL Eos # (Auto) (0-0.5) K/uL Baso # (Auto) (0-0.2) K/uL Reticulocyte # (0.02-0.10) 10^6/uL Toxic Granulation Toxic Vacuolation Dohle Bodies Tear Drop Cells Echinocytes ESR (0-14) mm/hr PT (9.0-12.0) Seconds INR (0.9-1.1) APTT (21.0-31.0) Seconds PTT Ratio Fibrinogen (184-400) mg/dl Sample Site POC pH (7.35-7.45) POC pCO2 (35-46) mmHg POC pO2 (80-95) mmHg POC HCO3 (19-24) reji/L POC Total CO2 (24-31) mEq/l POC Base Excess (-9-1.8) reji/L ABG pH (Temp Correct) (7.35-7.45) ABG pCO2 (Temp Corrct (35-46) mmHg POC ABG pO2 at Pt Temp POC ABG O2 Sat (90-95) % Ja Test O2 Delivery Device POC O2 Rate Minute Ventilation Tidal Volume PEEP Sodium 136 (136-145) mmol/L Potassium 4.5 D (3.5-5.1) mmol/L Chloride 107 (98-107) mmol/L Carbon Dioxide 20 L (21-32) mmol/L Anion Gap 9.0 (3-11) BUN 102 H (7-18) mg/dl Creatinine 1.70 H (0.6-1.4) mg/dl Est Cr Clr Drug Dosing 45.7 ml/min Est GFR ( Amer) 49.0 Est GFR (Non-Af Amer) 42.3 BUN/Creatinine Ratio 60.1 H (10-20) Glucose 81 (70-99) mg/dl POC Glucose 82 (70-99) Calcium 7.0 L (8.5-10.1) mg/dl Phosphorus 6.4 H (2.5-4.9) mg/dl Iron (35-175) mcg/dl TIBC (250-450) mcg/dl Transferrin (200-360) mg/dl Ferritin (8-388) ng/ml Ammonia (11-32) umol/L Total Creatine Kinase (39-308) U/L Prealbumin (20-40) mg/dl Tumor Marker AFP Vitamin B12 (211-911) pg/ml Folate (>5.38) ng/ml Procalcitonin 0.83 H (0-0.5) ng/ml TSH (0.300-4.500) uIu/ml Random Cortisol mcg/dl CSF Lyme IgG (Immblot) CSF Lyme IgG Bands Det CSF Lyme IgM (Immblot) CSF Lyme IgM Bands Det Pleural Fluid Source Pleural Color Pleural Appearance Pleural WBC /uL Pleural RBC /uL Pleural Polynuclear % % Pleural Mononuclear % % Nasal Screen MRSA (PCR) (Negative) Rheumatoid Factor DEJA Screen Blood Type Antibody Screen 02/13/19 02/13/19 02/13/19 Range/Units 04:29 00:12 00:04 WBC 11.79 H (4.8-10.8) K/uL RBC 2.59 L (4.7-6.1) M/uL Hgb 8.1 L (14.0-18.0) g/dL Hct 24.2 L (42-52) % MCV 93.4 (80-100) fL MCH 31.3 (25-34) pg MCHC 33.5 (32-36) g/dL RDW Std Deviation 50.0 H (36.4-46.3) fL RDW Coeff of Amari 14.9 H (11.5-14.5) % Plt Count 208 (130-400) K/uL MPV 9.6 (7.4-10.4) fL Immature Gran % (Auto) % Neut % (Auto) % Lymph % (Auto) % [place] % (Auto) % Eos % (Auto) % Baso % (Auto) % Reticulocyte % (Auto) (0.5-2.0) % Immature Gran # (Auto) (0.00-0.02) K/uL Neut # (Auto) (1.4-6.5) K/uL Lymph # (Auto) (1.2-3.4) K/uL [place] # (Auto) (0.11-0.59) K/uL Eos # (Auto) (0-0.5) K/uL Baso # (Auto) (0-0.2) K/uL Reticulocyte # (0.02-0.10) 10^6/uL Toxic Granulation Toxic Vacuolation Dohle Bodies Tear Drop Cells Echinocytes ESR (0-14) mm/hr PT (9.0-12.0) Seconds INR (0.9-1.1) APTT (21.0-31.0) Seconds PTT Ratio Fibrinogen (184-400) mg/dl Sample Site POC pH (7.35-7.45) POC pCO2 (35-46) mmHg POC pO2 (80-95) mmHg POC HCO3 (19-24) reji/L POC Total CO2 (24-31) mEq/l POC Base Excess (-9-1.8) reji/L ABG pH (Temp Correct) (7.35-7.45) ABG pCO2 (Temp Corrct (35-46) mmHg POC ABG pO2 at Pt Temp POC ABG O2 Sat (90-95) % Ja Test O2 Delivery Device POC O2 Rate Minute Ventilation Tidal Volume PEEP Sodium (136-145) mmol/L Potassium (3.5-5.1) mmol/L Chloride (98-107) mmol/L Carbon Dioxide (21-32) mmol/L Anion Gap (3-11) BUN (7-18) mg/dl Creatinine (0.6-1.4) mg/dl Est Cr Clr Drug Dosing ml/min Est GFR ( Amer) Est GFR (Non-Af Amer) BUN/Creatinine Ratio (10-20) Glucose (70-99) mg/dl POC Glucose 98 (70-99) Calcium (8.5-10.1) mg/dl Phosphorus (2.5-4.9) mg/dl Iron (35-175) mcg/dl TIBC (250-450) mcg/dl Transferrin (200-360) mg/dl Ferritin (8-388) ng/ml Ammonia (11-32) umol/L Total Creatine Kinase (39-308) U/L Prealbumin (20-40) mg/dl Tumor Marker AFP Pending Vitamin B12 (211-911) pg/ml Folate (>5.38) ng/ml Procalcitonin (0-0.5) ng/ml TSH (0.300-4.500) uIu/ml Random Cortisol mcg/dl CSF Lyme IgG (Immblot) CSF Lyme IgG Bands Det CSF Lyme IgM (Immblot) CSF Lyme IgM Bands Det Pleural Fluid Source Pleural Color Pleural Appearance Pleural WBC /uL Pleural RBC /uL Pleural Polynuclear % % Pleural Mononuclear % % Nasal Screen MRSA (PCR) (Negative) Rheumatoid Factor DEJA Screen Blood Type Antibody Screen 02/13/19 02/13/19 02/13/19 Range/Units 00:04 00:04 00:04 WBC (4.8-10.8) K/uL RBC (4.7-6.1) M/uL Hgb (14.0-18.0) g/dL Hct (42-52) % MCV (80-100) fL MCH (25-34) pg MCHC (32-36) g/dL RDW Std Deviation (36.4-46.3) fL RDW Coeff of Amari (11.5-14.5) % Plt Count (130-400) K/uL MPV (7.4-10.4) fL Immature Gran % (Auto) % Neut % (Auto) % Lymph % (Auto) % [place] % (Auto) % Eos % (Auto) % Baso % (Auto) % Reticulocyte % (Auto) (0.5-2.0) % Immature Gran # (Auto) (0.00-0.02) K/uL Neut # (Auto) (1.4-6.5) K/uL Lymph # (Auto) (1.2-3.4) K/uL [place] # (Auto) (0.11-0.59) K/uL Eos # (Auto) (0-0.5) K/uL Baso # (Auto) (0-0.2) K/uL Reticulocyte # (0.02-0.10) 10^6/uL Toxic Granulation Toxic Vacuolation Dohle Bodies Tear Drop Cells Echinocytes ESR (0-14) mm/hr PT (9.0-12.0) Seconds INR (0.9-1.1) APTT (21.0-31.0) Seconds PTT Ratio Fibrinogen (184-400) mg/dl Sample Site POC pH (7.35-7.45) POC pCO2 (35-46) mmHg POC pO2 (80-95) mmHg POC HCO3 (19-24) reji/L POC Total CO2 (24-31) mEq/l POC Base Excess (-9-1.8) reji/L ABG pH (Temp Correct) (7.35-7.45) ABG pCO2 (Temp Corrct (35-46) mmHg POC ABG pO2 at Pt Temp POC ABG O2 Sat (90-95) % Ja Test O2 Delivery Device POC O2 Rate Minute Ventilation Tidal Volume PEEP Sodium (136-145) mmol/L Potassium (3.5-5.1) mmol/L Chloride (98-107) mmol/L Carbon Dioxide (21-32) mmol/L Anion Gap (3-11) BUN (7-18) mg/dl Creatinine (0.6-1.4) mg/dl Est Cr Clr Drug Dosing ml/min Est GFR ( Amer) Est GFR (Non-Af Amer) BUN/Creatinine Ratio (10-20) Glucose (70-99) mg/dl POC Glucose (70-99) Calcium (8.5-10.1) mg/dl Phosphorus (2.5-4.9) mg/dl Iron (35-175) mcg/dl TIBC (250-450) mcg/dl Transferrin (200-360) mg/dl Ferritin (8-388) ng/ml Ammonia 24.0 (11-32) umol/L Total Creatine Kinase (39-308) U/L Prealbumin (20-40) mg/dl Tumor Marker AFP Vitamin B12 > 2000 H (211-911) pg/ml Folate 17.79 (>5.38) ng/ml Procalcitonin (0-0.5) ng/ml TSH (0.300-4.500) uIu/ml Random Cortisol 12.47 mcg/dl CSF Lyme IgG (Immblot) CSF Lyme IgG Bands Det CSF Lyme IgM (Immblot) CSF Lyme IgM Bands Det Pleural Fluid Source Pleural Color Pleural Appearance Pleural WBC /uL Pleural RBC /uL Pleural Polynuclear % % Pleural Mononuclear % % Nasal Screen MRSA (PCR) (Negative) Rheumatoid Factor DEJA Screen Blood Type Antibody Screen 02/13/19 02/13/19 02/12/19 Range/Units 00:04 00:04 Unknown WBC (4.8-10.8) K/uL RBC (4.7-6.1) M/uL Hgb (14.0-18.0) g/dL Hct (42-52) % MCV (80-100) fL MCH (25-34) pg MCHC (32-36) g/dL RDW Std Deviation (36.4-46.3) fL RDW Coeff of Amari (11.5-14.5) % Plt Count (130-400) K/uL MPV (7.4-10.4) fL Immature Gran % (Auto) % Neut % (Auto) % Lymph % (Auto) % [place] % (Auto) % Eos % (Auto) % Baso % (Auto) % Reticulocyte % (Auto) (0.5-2.0) % Immature Gran # (Auto) (0.00-0.02) K/uL Neut # (Auto) (1.4-6.5) K/uL Lymph # (Auto) (1.2-3.4) K/uL [place] # (Auto) (0.11-0.59) K/uL Eos # (Auto) (0-0.5) K/uL Baso # (Auto) (0-0.2) K/uL Reticulocyte # (0.02-0.10) 10^6/uL Toxic Granulation Toxic Vacuolation Dohle Bodies Tear Drop Cells Echinocytes ESR (0-14) mm/hr PT (9.0-12.0) Seconds INR (0.9-1.1) APTT (21.0-31.0) Seconds PTT Ratio Fibrinogen (184-400) mg/dl Sample Site POC pH (7.35-7.45) POC pCO2 (35-46) mmHg POC pO2 (80-95) mmHg POC HCO3 (19-24) reji/L POC Total CO2 (24-31) mEq/l POC Base Excess (-9-1.8) reji/L ABG pH (Temp Correct) (7.35-7.45) ABG pCO2 (Temp Corrct (35-46) mmHg POC ABG pO2 at Pt Temp POC ABG O2 Sat (90-95) % Ja Test O2 Delivery Device POC O2 Rate Minute Ventilation Tidal Volume PEEP Sodium (136-145) mmol/L Potassium (3.5-5.1) mmol/L Chloride (98-107) mmol/L Carbon Dioxide (21-32) mmol/L Anion Gap (3-11) BUN (7-18) mg/dl Creatinine (0.6-1.4) mg/dl Est Cr Clr Drug Dosing ml/min Est GFR ( Amer) Est GFR (Non-Af Amer) BUN/Creatinine Ratio (10-20) Glucose (70-99) mg/dl POC Glucose (70-99) Calcium (8.5-10.1) mg/dl Phosphorus (2.5-4.9) mg/dl Iron (35-175) mcg/dl TIBC (250-450) mcg/dl Transferrin (200-360) mg/dl Ferritin (8-388) ng/ml Ammonia (11-32) umol/L Total Creatine Kinase (39-308) U/L Prealbumin (20-40) mg/dl Tumor Marker AFP Vitamin B12 (211-911) pg/ml Folate (>5.38) ng/ml Procalcitonin (0-0.5) ng/ml TSH (0.300-4.500) uIu/ml Random Cortisol mcg/dl CSF Lyme IgG (Immblot) Cancelled CSF Lyme IgG Bands Det Cancelled CSF Lyme IgM (Immblot) Cancelled CSF Lyme IgM Bands Det Cancelled Pleural Fluid Source Pleural Color Pleural Appearance Pleural WBC /uL Pleural RBC /uL Pleural Polynuclear % % Pleural Mononuclear % % Nasal Screen MRSA (PCR) Negative (Negative) Rheumatoid Factor Pending DEJA Screen Pending Blood Type B Negative Antibody Screen NEGATIVE 02/12/19 02/12/19 02/12/19 Range/Units 23:54 19:49 19:39 WBC (4.8-10.8) K/uL RBC (4.7-6.1) M/uL Hgb (14.0-18.0) g/dL Hct (42-52) % MCV (80-100) fL MCH (25-34) pg MCHC (32-36) g/dL RDW Std Deviation (36.4-46.3) fL RDW Coeff of Amari (11.5-14.5) % Plt Count (130-400) K/uL MPV (7.4-10.4) fL Immature Gran % (Auto) % Neut % (Auto) % Lymph % (Auto) % [place] % (Auto) % Eos % (Auto) % Baso % (Auto) % Reticulocyte % (Auto) (0.5-2.0) % Immature Gran # (Auto) (0.00-0.02) K/uL Neut # (Auto) (1.4-6.5) K/uL Lymph # (Auto) (1.2-3.4) K/uL [place] # (Auto) (0.11-0.59) K/uL Eos # (Auto) (0-0.5) K/uL Baso # (Auto) (0-0.2) K/uL Reticulocyte # (0.02-0.10) 10^6/uL Toxic Granulation Toxic Vacuolation Dohle Bodies Tear Drop Cells Echinocytes ESR (0-14) mm/hr PT (9.0-12.0) Seconds INR (0.9-1.1) APTT (21.0-31.0) Seconds PTT Ratio Fibrinogen (184-400) mg/dl Sample Site Art Line POC pH 7.38 (7.35-7.45) POC pCO2 29 L (35-46) mmHg POC pO2 164 H (80-95) mmHg POC HCO3 17 L (19-24) reji/L POC Total CO2 18 L (24-31) mEq/l POC Base Excess -8.0 (-9-1.8) reji/L ABG pH (Temp Correct) 7.387 (7.35-7.45) ABG pCO2 (Temp Corrct 28 L (35-46) mmHg POC ABG pO2 at Pt Temp 160 POC ABG O2 Sat 99.0 H (90-95) % Ja Test NA O2 Delivery Device Ventilator POC O2 Rate 14 Minute Ventilation 10.9 Tidal Volume 500 PEEP 5 Sodium (136-145) mmol/L Potassium (3.5-5.1) mmol/L Chloride (98-107) mmol/L Carbon Dioxide (21-32) mmol/L Anion Gap (3-11) BUN (7-18) mg/dl Creatinine (0.6-1.4) mg/dl Est Cr Clr Drug Dosing ml/min Est GFR ( Amer) Est GFR (Non-Af Amer) BUN/Creatinine Ratio (10-20) Glucose (70-99) mg/dl POC Glucose (70-99) Calcium (8.5-10.1) mg/dl Phosphorus (2.5-4.9) mg/dl Iron (35-175) mcg/dl TIBC (250-450) mcg/dl Transferrin (200-360) mg/dl Ferritin (8-388) ng/ml Ammonia (11-32) umol/L Total Creatine Kinase (39-308) U/L Prealbumin (20-40) mg/dl Tumor Marker AFP Vitamin B12 (211-911) pg/ml Folate (>5.38) ng/ml Procalcitonin (0-0.5) ng/ml TSH (0.300-4.500) uIu/ml Random Cortisol mcg/dl CSF Lyme IgG (Immblot) CSF Lyme IgG Bands Det CSF Lyme IgM (Immblot) CSF Lyme IgM Bands Det Pleural Fluid Source RIGHT LUNG LEFT LUNG Pleural Color STRAW STRAW Pleural Appearance HAZY HAZY Pleural WBC 266 318 /uL Pleural RBC 6000 4000 /uL Pleural Polynuclear % 43.1 48.2 % Pleural Mononuclear % 56.9 51.8 % Nasal Screen MRSA (PCR) (Negative) Rheumatoid Factor DEJA Screen Blood Type Antibody Screen 02/12/19 02/12/19 02/12/19 Range/Units 18:09 18:06 18:06 WBC (4.8-10.8) K/uL RBC (4.7-6.1) M/uL Hgb (14.0-18.0) g/dL Hct (42-52) % MCV (80-100) fL MCH (25-34) pg MCHC (32-36) g/dL RDW Std Deviation (36.4-46.3) fL RDW Coeff of Amari (11.5-14.5) % Plt Count (130-400) K/uL MPV (7.4-10.4) fL Immature Gran % (Auto) % Neut % (Auto) % Lymph % (Auto) % [place] % (Auto) % Eos % (Auto) % Baso % (Auto) % Reticulocyte % (Auto) 1.5 (0.5-2.0) % Immature Gran # (Auto) (0.00-0.02) K/uL Neut # (Auto) (1.4-6.5) K/uL Lymph # (Auto) (1.2-3.4) K/uL [place] # (Auto) (0.11-0.59) K/uL Eos # (Auto) (0-0.5) K/uL Baso # (Auto) (0-0.2) K/uL Reticulocyte # 0.05 (0.02-0.10) 10^6/uL Toxic Granulation Toxic Vacuolation Dohle Bodies Tear Drop Cells Echinocytes ESR (0-14) mm/hr PT 13.0 H (9.0-12.0) Seconds INR 1.3 H (0.9-1.1) APTT 29.1 (21.0-31.0) Seconds PTT Ratio 1.1 Fibrinogen 315 (184-400) mg/dl Sample Site POC pH (7.35-7.45) POC pCO2 (35-46) mmHg POC pO2 (80-95) mmHg POC HCO3 (19-24) reji/L POC Total CO2 (24-31) mEq/l POC Base Excess (-9-1.8) reji/L ABG pH (Temp Correct) (7.35-7.45) ABG pCO2 (Temp Corrct (35-46) mmHg POC ABG pO2 at Pt Temp POC ABG O2 Sat (90-95) % Ja Test O2 Delivery Device POC O2 Rate Minute Ventilation Tidal Volume PEEP Sodium (136-145) mmol/L Potassium (3.5-5.1) mmol/L Chloride (98-107) mmol/L Carbon Dioxide (21-32) mmol/L Anion Gap (3-11) BUN (7-18) mg/dl Creatinine (0.6-1.4) mg/dl Est Cr Clr Drug Dosing ml/min Est GFR ( Amer) Est GFR (Non-Af Amer) BUN/Creatinine Ratio (10-20) Glucose (70-99) mg/dl POC Glucose (70-99) Calcium (8.5-10.1) mg/dl Phosphorus (2.5-4.9) mg/dl Iron 17 L (35-175) mcg/dl TIBC 143 L (250-450) mcg/dl Transferrin 83 L (200-360) mg/dl Ferritin 751.5 H (8-388) ng/ml Ammonia (11-32) umol/L Total Creatine Kinase 33 L (39-308) U/L Prealbumin 8.8 L (20-40) mg/dl Tumor Marker AFP Vitamin B12 (211-911) pg/ml Folate (>5.38) ng/ml Procalcitonin (0-0.5) ng/ml TSH 2.720 (0.300-4.500) uIu/ml Random Cortisol mcg/dl CSF Lyme IgG (Immblot) CSF Lyme IgG Bands Det CSF Lyme IgM (Immblot) CSF Lyme IgM Bands Det Pleural Fluid Source Pleural Color Pleural Appearance Pleural WBC /uL Pleural RBC /uL Pleural Polynuclear % % Pleural Mononuclear % % Nasal Screen MRSA (PCR) (Negative) Rheumatoid Factor DEJA Screen Blood Type Antibody Screen 02/12/19 02/12/19 02/12/19 Range/Units 18:06 18:06 18:06 WBC 13.76 H (4.8-10.8) K/uL RBC 3.04 L (4.7-6.1) M/uL Hgb 9.4 L (14.0-18.0) g/dL Hct 28.1 L (42-52) % MCV 92.4 (80-100) fL MCH 30.9 (25-34) pg MCHC 33.5 (32-36) g/dL RDW Std Deviation 49.6 H (36.4-46.3) fL RDW Coeff of Amari 14.7 H (11.5-14.5) % Plt Count 231 (130-400) K/uL MPV 10.1 (7.4-10.4) fL Immature Gran % (Auto) 0.4 % Neut % (Auto) 89.4 % Lymph % (Auto) 5.2 % [place] % (Auto) 4.9 % Eos % (Auto) 0.0 % Baso % (Auto) 0.1 % Reticulocyte % (Auto) (0.5-2.0) % Immature Gran # (Auto) 0.06 H (0.00-0.02) K/uL Neut # (Auto) 12.29 H (1.4-6.5) K/uL Lymph # (Auto) 0.72 L (1.2-3.4) K/uL [place] # (Auto) 0.68 H (0.11-0.59) K/uL Eos # (Auto) 0.00 (0-0.5) K/uL Baso # (Auto) 0.01 (0-0.2) K/uL Reticulocyte # (0.02-0.10) 10^6/uL Toxic Granulation 1+ Toxic Vacuolation 1+ Dohle Bodies 1+ Tear Drop Cells Occasional Echinocytes 2+ ESR 52 H (0-14) mm/hr PT (9.0-12.0) Seconds INR (0.9-1.1) APTT (21.0-31.0) Seconds PTT Ratio Fibrinogen (184-400) mg/dl Sample Site POC pH (7.35-7.45) POC pCO2 (35-46) mmHg POC pO2 (80-95) mmHg POC HCO3 (19-24) reji/L POC Total CO2 (24-31) mEq/l POC Base Excess (-9-1.8) reji/L ABG pH (Temp Correct) (7.35-7.45) ABG pCO2 (Temp Corrct (35-46) mmHg POC ABG pO2 at Pt Temp POC ABG O2 Sat (90-95) % Ja Test O2 Delivery Device POC O2 Rate Minute Ventilation Tidal Volume PEEP Sodium 134 L (136-145) mmol/L Potassium 5.3 H (3.5-5.1) mmol/L Chloride 105 (98-107) mmol/L Carbon Dioxide 18 L (21-32) mmol/L Anion Gap 11.0 (3-11) BUN 102 H (7-18) mg/dl Creatinine 1.90 H (0.6-1.4) mg/dl Est Cr Clr Drug Dosing 40.9 ml/min Est GFR ( Amer) 42.8 Est GFR (Non-Af Amer) 37.0 BUN/Creatinine Ratio 53.8 H (10-20) Glucose 106 H (70-99) mg/dl POC Glucose (70-99) Calcium 7.4 L (8.5-10.1) mg/dl Phosphorus (2.5-4.9) mg/dl Iron (35-175) mcg/dl TIBC (250-450) mcg/dl Transferrin (200-360) mg/dl Ferritin (8-388) ng/ml Ammonia (11-32) umol/L Total Creatine Kinase (39-308) U/L Prealbumin (20-40) mg/dl Tumor Marker AFP Vitamin B12 (211-911) pg/ml Folate (>5.38) ng/ml Procalcitonin (0-0.5) ng/ml TSH (0.300-4.500) uIu/ml Random Cortisol mcg/dl CSF Lyme IgG (Immblot) CSF Lyme IgG Bands Det CSF Lyme IgM (Immblot) CSF Lyme IgM Bands Det Pleural Fluid Source Pleural Color Pleural Appearance Pleural WBC /uL Pleural RBC /uL Pleural Polynuclear % % Pleural Mononuclear % % Nasal Screen MRSA (PCR) (Negative) Rheumatoid Factor DEJA Screen Blood Type Antibody Screen PG Care Time/CCT Total # of Minutes Spent Total Time Spent with Patient: Total time spent is greater than 50% in coordination of care (as documented) at patient's floor/unit and/or counseling patient: 60 min Critical Care Time: Yes Total Critical Care Time: 60 Resident Activity Tracking Resident Involvement: Resident Care Provided Care Provided: Adult Hospital Medicine (ICU: Epidural Abscess, HEP C, Trauma, Drug addiction, Infection )
[2019-02-15 10:09] LABS: Anti Nuclear Antibody Screen NEGATIVE (NEGATIVE); Rheumatoid Factor < 14 IU/ML (<14)
== END 2019-02-13 11:18 | disposition short-term general hospital (02) | DRG 853 ==
LOC: ED 00:11 → SUATTDRO 04:12 → 2E 04:12 → 1E 02-12 15:58
DX: W11.XXXA Fall on and from ladder, initial encounter; G93.41 Metabolic encephalopathy; N39.0 Urinary tract infection, site not specified; A41.01 Sepsis due to Methicillin susceptible Staphylococcus aureus; R65.21 Severe sepsis with septic shock; S27.1XXA Traumatic hemothorax, initial encounter; R00.0 Tachycardia, unspecified; F15.10 Other stimulant abuse, uncomplicated; I21.A1 Myocardial infarction type 2; N17.0 Acute kidney failure with tubular necrosis; J90 Pleural effusion, not elsewhere classified; J69.0 Pneumonitis due to inhalation of food and vomit; Z59.0 Homelessness; B19.20 Unspecified viral hepatitis C without hepatic coma; S22.49XA Multiple fractures of ribs, unspecified side, initial encounter for closed fracture; J96.90 Respiratory failure, unspecified, unspecified whether with hypoxia or hypercapnia; T68.XXXA Hypothermia, initial encounter; Z88.0 Allergy status to penicillin; E87.1 Hypo-osmolality and hyponatremia